=== PATIENT | female | born 1940 | race Caucasian/White ===

== ENCOUNTER 2021-02-14 07:04 | Outpatient (REF) | payer MEDICARE, SELFPAY ==
[2021-02-14 07:25] LABS: Hematocrit 25.4 % (37-47); Hemoglobin 8.1 g/dl (12.0-16.0); Mean Corpuscular HGB Conc 31.9 g/dl (31.0-35.0); Mean Corpuscular Hemoglobin 29.5 pg (27.0-33.0); Mean Corpuscular Volume 92.4 fL (80-98); Mean Platelet Volume 9.5 fL (9.4-12.3); NRBC Pct Auto 0.7 /100WBC (0.0-0.2); Platelet Count 393 X10*3/uL (160-400); Red Blood Count 2.75 X10*6/uL (4.20-5.50); Red Cell Distribution Width 20.8 % (11.0-16.0); White Blood Count 17.4 X10*3/uL (4.8-10.8)
[2021-02-14 07:46] LABS: Alanine Aminotransferase 16 U/L (0-31); Albumin Level 2.7 g/dL (3.5-5.0); Alkaline Phosphatase 107 U/L (39-117); Anion Gap 13 (12-20); Aspartate Amino Transferase 16 U/L (5-31); Bilirubin Total 0.5 mg/dL (0.0-1.0); Blood Urea Nitrogen 11 mg/dL (9-16); Calcium 8.2 mg/dL (8.4-10.2); Carbon Dioxide 22 mmol/L (22-29); Chloride 110 mmol/L (96-108); Estimated Glomerular Filt Rate > 60; Glucose Random 87 mg/dL (60-115); Potassium 4.1 mmol/L (3.3-5.1); Sodium 141 mmol/L (135-145); Total Protein 5.1 g/dL (6.5-8.0)
== END 2021-02-14 07:05 | disposition home or self-care (01) ==
LOC: HO.MMNH2L 07:04
PROVIDERS: Visit Provider Family Medicine
DX: N17.9 Acute kidney failure, unspecified (principal); I10 Essential (primary) hypertension; E11.9 Type 2 diabetes mellitus without complications
CPT/HCPCS: 36415; 80053; 85027

== ENCOUNTER 2021-02-20 00:16 | Outpatient (REF) | payer MEDICARE, SELFPAY ==
[2021-02-20 06:33] LABS: MANUAL DIFF FLAG NO
[2021-02-20 07:16] LABS: Basophils Absolute Auto 0.1 X10*3/uL (0.0-0.2); Basophils Percent Auto 1.1 % (0-2); Eosinophils Absolute Auto 0.1 X10*3/uL (0.0-0.4); Hematocrit 26.6 % (37-47); Hemoglobin 8.1 g/dl (12.0-16.0); Imm Gran Abs Auto 0.15 X10*3/uL (0.00-0.03); Imm Gran Pct Auto 1.2 % (0.0-0.4); Lymphocytes Absolute Auto 2.8 X10*3/uL (1.2-4.9); Lymphocytes Percent Auto 22.4 % (20-40); Mean Corpuscular HGB Conc 30.5 g/dl (31.0-35.0); Mean Corpuscular Hemoglobin 29.8 pg (27.0-33.0); Mean Corpuscular Volume 97.8 fL (80-98); Mean Platelet Volume 8.7 fL (9.4-12.3); Neutrophils Absolute Auto 8.2 X10*3/uL (2.0-8.3); Neutrophils Percent Auto 66.3 % (45-73); Platelet Count 813 X10*3/uL (160-400); Red Blood Count 2.72 X10*6/uL (4.20-5.50); Red Cell Distribution Width 21.4 % (11.0-16.0); White Blood Count 12.4 X10*3/uL (4.8-10.8)
[2021-02-20 07:36] LABS: Magnesium 2.1 mg/dL (1.6-2.6); Phosphorus 4.5 mg/dL (2.7-4.5)
[2021-02-20 07:38] LABS: Anion Gap 13 (12-20); Blood Urea Nitrogen 16 mg/dL (9-16); Calcium 8.7 mg/dL (8.4-10.2); Carbon Dioxide 26 mmol/L (22-29); Chloride 111 mmol/L (96-108); Estimated Glomerular Filt Rate > 60; Glucose Random 82 mg/dL (60-115); Potassium 5.1 mmol/L (3.3-5.1); Sodium 145 mmol/L (135-145)
== END 2021-02-20 00:17 | disposition home or self-care (01) ==
LOC: HO.MMNH2L 00:16
PROVIDERS: Visit Provider Family Medicine
DX: I10 Essential (primary) hypertension (principal); N17.9 Acute kidney failure, unspecified; E11.9 Type 2 diabetes mellitus without complications
CPT/HCPCS: 36415; 80048; 83735; 84100; 85025

== ENCOUNTER 2021-02-27 00:28 | Outpatient (REF) | payer MEDICARE, BC, SELFPAY | END 2021-02-27 00:29 | disposition home or self-care (01) | LOC: HO.MMNH2L 00:28 | PROVIDERS: Visit Provider Family Medicine | DX: Z13.89 Encounter for screening for other disorder (principal) ==

== ENCOUNTER 2024-06-25 09:48 | Outpatient (AMB) | payer MEDICARE, SELFPAY ==
--- OUTSIDE RECORDS SUMMARY | 2024-06-25 09:52 | XMS_ITS | Data Portability ---
Author Organization [facility] Main Office Address [address] [place] [address] [address] [place] [address] Assessment Encounter Date Assessment Date Assessment LastModified by Organization Details LastModified Time 10/16/2018 10/16/2018 CXR ordered. Rocephin 1 gr IM in office today. Begin medication as directed. Medication directions, adverse effects reviewed with patient, follow up after treatment, PRN through walk in if concerns arise. [email or web address] Not available 10/16/2018 17:39:11 Plan of Treatment Reminders Order Date Submit Date Provider Last Modified By Organization Details Last Modified Time Details Appointments None recorded. Lab None recorded. Referral None recorded. Procedures None recorded. Surgeries None recorded. Imaging None recorded. Medication Orders doxycyclin e hyclate 100 mg capsule 2018 019 INTERFACE [id number], [address] [place], [address], 9 12:50:28 benzonatat e 200 mg capsule 2018 019 INTERFACE [facility], [address] [place], [address], 9 12:50:28 ceftriaxon e 1 gram solution for injection 2018 019 Not available 9 15:54:44 Patient TargetsNo targets recorded. Patient InstructionsNo instructions recorded. Reason for Referral None Reported. Results Created Date Observation Date Name Description Value Unit Range Abnormal Flag Note LastModifiedBy Organization Detail LastModifiedTime 10/18/19 19 10/17/2018 XR, chest No observ ation record ed. [email or web address] [facility] ([facility] [address], [place], [address], 10/20/2018 10:55:51 Result Notes None recorded. Procedures Surgical History Date Name Laterality Status Provider Name and Address Organization Details Recorded Time Tonsillectomy completed [facility] 10/16/2018 12:18:46 Breast Surgery completed [facility] 10/16/2018 12:19:30 Shoulder joint surgery completed [facility] 10/16/2018 12:20:24 Knee [facility] 10/16/2018 12:20:33 Imaging Results Imaging Date Name Status LastModified by Organiz ation Details LastModified Time 10/17/2018 XR, chest completed [email or web address] [facility] ([facility]) [address], [place], [address], 10/20/2018 10:55:51 Procedure Notes None recorded. Medical Equipment None Reported. Allergies Allergen ID Allergen Name Allergen Category Reaction Reaction Severity Criticality Documentation Date Start Date Code Code System Note Provider Name and Address Organization Details Recorded Time 8783 codeine medicatio n Not available Not available Not available 10/16/2018 2670 [facility] 9 12:10:12 8784 morphine medicatio n Not available Not available Not available 10/16/2018 7052 [facility] 9 12:10:18 Medications Name Sig Start Date Stop Date Status Note LastModified by Organization Details LastModified Time atorvastatin 40 mg tablet Take 1 tablet every day by oral route. active Not Available Not Available No t Available doxycycline hyclate 100 mg capsule Take 1 capsule twice a day by oral route for 10 days. 2018 active Not Available Not Available Not Avai lable indapamide 2.5 mg tablet Take 1 tablet every day by oral route. active Not Available Not Available No t Available benzonatate 200 mg capsule Take 1 capsule 3 times a day by oral route as needed. 2018 active Not Available Not Available Not Avai lable levothyroxine 25 mcg tablet Take 1 tablet every day by oral route. active Not Available Not Available No t Available ceftriaxone 1 gram solution for injection Take 1 g by injection route. 2018 active Not Available Not Available Not Avai lable prednisone 1 mg tablet Take 1 tablet every day by oral route. active Not Available Not Available No t Available valsartan 320 mg tablet Take 1 tablet every day by oral route. active Not Available Not Available No t Available omeprazole 20 mg capsule,delay ed release Take 1 capsule every day by oral route. active Not Available Not Available No t Available folic acid 1 mg tablet Take 1 tablet every day by oral route. active Not Available Not Available No t Available zolpidem 10 mg tablet Take 1 tablet every day by oral route. active Not Available Not Available No t Available oxybutynin chloride 5 mg tablet Take 1 tablet every day by oral route. active Not Available Not Available No t Available methotrexate 2.5 mg tablet Take 8 tablets every week by oral route. active Not Available Not Available No t Available Vitals Date Recorded Body temperature Respiratory rate Body weight Body height Body mass index (BMI) Heart rate Systolic blood pressure Diastolic blood pressure Provider Name and Address Organization Details Last Updated DateTime 9 101 [degF] 20 /min 71335.2 6 g 165.1 cm 29.3 kg/m2 79 /min 157 mm[Hg] 70 mm[Hg] Ivana Swanson [facility] 9 12:09:53 Social History Question Answer Notes LastModified by Organizat ion Details LastModified Time Tobacco Smoking Status Former Smoker Ivana Swanson null, [facility] 10/16/2018 12:16:21 What Is Your Level Of Alcohol Consumption? None Information not available 10/16/2018 Hard Of Hearing Or Deaf In One Or Both Ears? No Information not available 10/16/2018 Live Alone Or With Others? With Others Information not available 10/16/2018 What Was The Date Of Your Most Recent Tobacco Screening? 10/16/2018 Information n ot available 02/04/2019 Seat Belts Used Routinely Yes Information not available 10/16/2018 Smoke Alarm In Home Yes Information not available 10/16/2018 How Much Tobacco Do You Smoke? No Information not available 10/16/2018 Do You Use Sunscreen Routinely? Yes Information not available 10/16/2018 Sex: Unknown Functional Status Question Answer Note LastModified by Organization D etails LastModified Time Are you able to walk? YESWOREST Information not available 10/16/2018 Are you able to care for yourself? Yes Information not available 10/16/2018 What is your exercise level? None Information not available 10/16/2018 Mental Status None recorded. Family History Nothing Reported. Medical History Condition Response Cancer Y Hypertension Y High Cholesterol Y Gynecological HistoryNo gynecological history recorded. Obstetrics History GPAL:G 0 P 0 0 0 0 Immunizations Vaccine Type Date Status Note Provider Nam e and Address Organization Details Recorded Time Influenza, split virus, quadrivalent, preservative 8 completed Ivana mcgovern [facility] 10/16/2018 12:15:30 Pneumococcal conjugate PCV 13 4 completed Ivana mcgovern [facility] 10/16/2018 12:15:49 Past Encounters Encounter ID Performer Location Encounter Start Date Encounter Closed Date Diagnosis/Indication Diagnosis SNOMED-CT Code Diagnosis ICD10 Code [id number] Leidy Odell Main Office [address] [place] [address] [address] [place] [address] 10/16/2018 11:21:30 10/17/2018 08:14:45 Community acquired pneumonia 371886948 J18.9 Health Concerns Section Related Observation LastModified by Organization Detai ls LastModified Time None Recorded Concern Status LastModified by Organization Details LastModified Time None Recorded Advance Directives Directive None Recorded Payers Encounter Date Sequence Insurance Name Policy Number Policy Swanson Covered Member ID Swanson Member ID Guarantor Name 10/16/2018 SLIDING FEE SCHEDULE - DISCOUNT Gely Busby Notes Date Note Type Note Provider Name and Address Organization Details Recorded Time 10/16/2018 text/html Pt was treated for pneumonia before she left [place] Leidy mcgovern [facility] 10/16/2018 17:39:43 OBGyn Episode No OBEpisode recorded.
--- NOTE | 2024-06-25 10:00 | A.OFFVIS_ITS ---
Vital Signs 06/25/24 10:05 Height 5 ft 5 in Weight 156 lb 8.451 oz BMI 26.0 BP 120/72 Blood Pressure Location Lt brachial Position Sitting Pulse 81 Pulse Source Pulse Oximeter Pulse Oximetry (%) 98 Oxygen Delivery Method Room Air Intake Visit Reasons: RA Intake Note: Patient presents for follow up on rheumatoid arthritis. Allergies codeine Allergy (Mild, Verified 06/25/24 10:10) Vomiting Opioids - Morphine Analogues Allergy (Mild, Verified 06/25/24 10:10) Vomiting pineapple Allergy (Mild, Verified 06/25/24 10:10) Vomiting methotrexate Adverse Reaction (Severe, Verified 06/25/24 10:42) mouth ulcers HPI HPI RA: Details: She feels well. No recent infections. Review of Systems Const All systems reviewed & are unremarkable except as noted in HPI and below Physical Exam Vital Signs: Last Vital Signs Pulse 81 06/25/24 10:05 BP 120/72 06/25/24 10:05 Pulse Ox 98 06/25/24 10:05 Oxygen Delivery Method Room Air 06/25/24 10:05 BMI result Body Mass Index 26.0 Const Other: General: Comfortable CVS: RRR Respiratory: clear to auscultation bilaterally. Good respiratory effort Skin: No lesions seen MSK: Nontender joints. Heberden's nodes present. No synovitis. Shoulder abduction 120 degrees with good internal and external rotation. Limited full flexion of knees. No MTP tenderness. Assessment & Plan Assessment & Plan (1) Rheumatoid arthritis: Comment: Controlled on hydroxychloroquine and prednisone 2 mg alternating with 1 mg the next day. Code(s): M06.9 - Rheumatoid arthritis, unspecified Category: Medical Qualifiers: Rheumatoid arthritis location: unspecified site Rheumatoid factor presence: unspecified presence Qualified Code(s): M06.9 - Rheumatoid arthritis, unspecified Plan: Decrease prednisone to 1 mg daily Continue hydroxychloroquine 300 mg daily. Requesting last eye exam for hydroxychloroquine surveillance, which patient had in 01/02/2024 Labs for disease and drug monitoring and high-risk medication ordered [facility] Return to clinic in 3 months Orders: Orders Erythrocyte Sedimentation Rate Today M06.9 - Rheumatoid arthritis, unspecified Alanine Aminotransferase Today Z79.60 - group home (current) use of unspecified immunomodulators and immunosuppressants Aspartate Amino Transferase Today Z79.60 - group home (current) use of unspecified immunomodulators and immunosuppressants Complete Blood Count Auto Diff Today Z79.60 - group home (current) use of unspecified immunomodulators and immunosuppressants Creatinine Today Z79.60 - group home (current) use of unspecified immunomodulators and immunosuppressants Hepatitis B,C Profile Today M06.9 - Rheumatoid arthritis, unspecified Rheumatoid Factor Today M06.9 - Rheumatoid arthritis, unspecified C Reactive Protein Today M06.9 - Rheumatoid arthritis, unspecified T Spot TB Today M06.9 - Rheumatoid arthritis, unspecified Cyclic Citrullinated Peptide Today M06.9 - Rheumatoid arthritis, unspecified Medications: New prednisone 1 mg PO DAILY 90 tabs 1RF Coding Level of Care Code Est Pt Level 4 (38256) Complex EM visit Add On G2211 Diagnoses Rheumatoid arthritis, involving unspecified site, unspecified whether rheumatoid factor present M06.9 Rheumatoid arthritis location: unspecified site Rheumatoid factor presence: unspecified presence
[2024-06-25 10:05] VITALS: BP 120/72; PULSE 81; O2SAT 98; BMI 26.0
== END 2024-06-25 10:55 | disposition home or self-care (01) ==
PROVIDERS: PCP Internal Medicine; Visit Provider Internal Medicine Rheumatology
DX: M06.9 Rheumatoid arthritis, unspecified (principal)
CPT/HCPCS: 99214; G2211

== ENCOUNTER → 2024-06-25 09:48 | Outpatient (BNVA) | payer MEDICARE, SELFPAY | PROVIDERS: PCP Internal Medicine; Visit Provider Internal Medicine Rheumatology | DX: M06.9 Rheumatoid arthritis, unspecified (principal); Z79.60 Long term (current) use of unspecified immunomodulators and immunosuppressants | CPT/HCPCS: 99212 ==

== ENCOUNTER 2024-11-12 12:34 | Outpatient (AMB) | payer MEDICARE, SELFPAY ==
--- NOTE | 2024-11-12 12:37 | A.OFFVIS_ITS ---
Vital Signs 11/12/24 12:45 Height 5 ft 5 in Weight 147 lb 0.773 oz BMI 24.5 BP 164/90 H Blood Pressure Location Rt brachial Position Sitting Pulse 75 Pulse Source Pulse Oximeter Pulse Oximetry (%) 98 Oxygen Delivery Method Room Air Intake Visit Reasons: 3 mnts f/u Intake Note: Patient presents for 3 months follow up. Allergies codeine Allergy (Mild, Verified 11/12/24 12:43) Vomiting Opioids - Morphine Analogues Allergy (Mild, Verified 11/12/24 12:43) Vomiting pineapple Allergy (Mild, Verified 11/12/24 12:43) Vomiting methotrexate Adverse Reaction (Severe, Verified 11/12/24 12:43) mouth ulcers HPI HPI 3 mnts f/u: Details: She has more joint pain in hands since being on prednisone 1mg daily. No joint swelling. She has ocular testing with visual field every 6 months. I have not received any record. She feels she is walking slower. She does not feel confident going outside by herself sometimes. She uses a cane to ambulate. No MS[facility] Social History (Updated 11/12/24 @ 12:45 by JUNE Lama) Household Members: Spouse Housing: House Alcohol intake: former Patient Tobacco Use Status: Former Tobacco user Years Smoked: 10 Physical Exam Vital Signs: Last Vital Signs Pulse 75 11/12/24 12:45 BP 164/90 H 11/12/24 12:45 Pulse Ox 98 11/12/24 12:45 Oxygen Delivery Method Room Air 11/12/24 12:45 BMI result Body Mass Index 24.5 Const Other: General: Comfortable CVS: RRR Respiratory: clear to auscultation bilaterally. Good respiratory effort Skin: No lesions seen MSK: Nontender joints. Heberden's nodes present. No synovitis. Bilateral Shoulder abduction 160 degrees with good internal and external rotation. Limited full flexion of knees. No MTP tenderness. Assessment & Plan Assessment & Plan (1) Rheumatoid arthritis: Comment: Controlled on hydroxychloroquine and prednisone 1 mg daily Rheumatology history: Seropositive (RF). Onset 2011. Methotrexate 2012 to January 2021 discontinued due to oral ulcers and pancytopenia with biopsy confirmi ng mucositis. Chronic prednisone use. Leflunomide May 03, 2022 to June 03, 2022 kidney dysfunction. Sulfasalazine caused drowsiness. Hydroxychloroquine August 2022 to present. Code(s): M06.9 - Rheumatoid arthritis, unspecified Category: Medical Qualifiers: Rheumatoid arthritis location: unspecified site Rheumatoid factor presence: unspecified presence Qualified Code(s): M06.9 - Rheumatoid arthritis, unspecified Plan: Continue hydroxychloroquine 300 mg daily. OCT January 2023 and visual field May 2023 okay. I am requesting last clinic note with OCT and visual field testing. Patient has been having visual field testing every 6 months and have been stable per patient. She will discuss having yearly testing. She will alternate prednisone 1 mg with non the next day until next visit. Patient has enough prednisone at home and will call office when she needs refill Baseline labs for disease and drug monitoring ordered. Patient did not have them last visit. Return to clinic in 3 months (2) Generalized weakness: Comment: Contributing to slower gait Code(s): R53.1 - Weakness Category: Medical Plan: PT ordered for lower extremity extremity strengthening Return to clinic in 3 months (3) Osteopenia after menopause: Comment: Moderate fracture risk on bone density from October 15, 2023. Risk factor: chronic low-dose prednisone and age. Code(s): M85.80 - Other specified disorders of bone density and structure, unspecified site; Z78.0 - Asymptomatic menopausal state Category: Medical Plan: Continue calcium carbonate 600 mg daily. 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) use of unspecified immunomodulators and immunosuppressants C Reactive Protein Today Z79.899 - Other custodial (current) drug therapy Vitamin D 25-OH Total Today M85.80 - Other specified disorders of bone density and structure, unspecified site, Z78.0 - Asymptomatic menopausal state Albumin Level Today M85.80 - Other specified disorders of bone density and structure, unspecified site, Z78.0 - Asymptomatic menopausal state Calcium Today M85.80 - Other specified disorders of bone density and structure, unspecified site, Z78.0 - Asymptomatic menopausal state Complete Blood Count Auto Diff Today Z79.60 - middle or intermediate school principal (current) use of uns pecified immunomodulators and immunosuppressants Aspartate Amino Transferase Today Z79.60 - snf (current) use of unspecified immunomodulators and immunosuppressants Erythrocyte Sedimentation Rate Today Z79.899 - Other middle or intermediate school principal (current) drug therapy PT Evaluation and Treatment Today M06.9 - Rheumatoid arthritis, unspecified, R53.1 - Weakness Medications: New hydroxychloroquine 400 mg (2 x 200 mg) PO DAILY 90 days 180 tabs 1RF Coding Level of Care Code Est Pt Level 4 (72897) Complex EM visit Add On G2211 Diagnoses Rheumatoid arthritis, involving unspecified site, unspecified whether rheumatoid factor present M06.9 Rheumatoid arthritis location: unspecified site Rheumatoid factor presence: unspecified presence Generalized weakness R53.1 Osteopenia after menopause M85.80; Z78.0
[2024-11-12 12:45] VITALS: BP 164/90; PULSE 75; O2SAT 98; BMI 24.5
--- OUTSIDE RECORDS SUMMARY | 2024-11-12 14:55 | XMS_ITS | Data Portability ---
Author Organization [facility], Main Office Address [address] [place] [address] [address] [place] [address] Assessment Encounter Date Assessment Date Assessment LastModified [...] 019 INTERFACE [facility], [address] [place], [address], 9 12:50:28 benzonatat e 200 mg capsule 2018 019 INTERFACE [facility], [address] [place], [address], 9 12:50:28 ceftriaxon e 1 gram solution for injection 2018 019 Not available 9 15:54:44 Patient TargetsNo targets recorded. Patient InstructionsNo instructions recorded. Reason for Referral None Reported. Results Created Date Observation Date Name Description Value Unit Range Abnormal Flag Note LastModifiedBy Organization Detail LastModifiedTime 10/18/19 19 10/17/2018 XR, chest No observ ation record ed. [email or web address] [facility] ([facility]) [address], [place], [address], 10/20/2018 10:55:51 Result Notes None recorded. Procedures Surgical History Date Name Laterality Status Provider Name and Address Organization Details Recorded Time Tonsillectomy completed [facility] 10/16/2018 12:18:46 Breast Surgery completed [facility] 10/16/2018 12:19:30 Shoulder joint surgery completed [facility] 10/16/2018 12:20:24 [facility] 12:20:33 Imaging Results Imaging Date Name Status LastModified by Organiz ation Details LastModified Time 10/17/2018 XR, chest completed [email or web address] [facility] ([facility]) [address], [place], [address], 10/20/2018 10:55:51 Procedure Notes None recorded. Medical Equipment None Reported. Allergies Allergen ID Allergen Name Allergen Category Reaction Reaction Severity Criticality Documentation Date Start Date Code Code System Note Provider Name and Address Organization Details Recorded Time 8783 codeine medicatio n Not available Not available Not available 10/16/2018 2670 [facility] 9 12:10:12 8784 morphine medicatio n Not available Not available Not available 10/16/2018 7052 [facility]Norm [facility] 9 12:10:18 Medications Name Sig Start Date [...] Updated DateTime 9 101 [degF] 20 /min 14346.2 6 g 165.1 cm 29.3 kg/m2 79 /min 157 mm[Hg] 70 mm[Hg] Ivana Swanson [facility] 9 12:09:53 Social History Question Answer Notes LastModified by Organizat ion Details LastModified Time Tobacco Smoking Status Former Smoker Ivana Swanson null, [facility] 10/16/2018 12:16:21 What Is Your Level Of [...] virus, quadrivalent, preservative 8 completed Ivana mcgovern [facility] 10/16/2018 12:15:30 Pneumococcal conjugate PCV 13 4 completed Ivana mcgovern [facility] 10/16/2018 12:15:49 Past Encounters Encounter ID Performer Location Encounter Start Date Encounter Closed Date Diagnosis/Indication Diagnosis SNOMED-CT Code Diagnosis ICD10 Code Diagnosis Note [id number] Lexa Miranda DO Main Office [address] [place] [address] [address] [place] [address] 10/16/2018 11:21:30 10/17/2018 08:14:45 Community acquired pneumonia [id number] J18.9 Health Concerns Section Related Observation LastModified [...] pneumonia [place] she left [place] Leidy mcgovern [facility] 10/16/2018 17:39:43 OBGyn Episode No OBEpisode recorded.
--- OUTSIDE RECORDS SUMMARY | 2024-11-12 14:55 | XMS_ITS | Data Portability ---
Author Organization [place] - [facility] Address [address] [place] [id number] Care Team Providers Care Fermenter Champagne Name Role Phone PASQUALE GREENE Primary Care Provider Assessment Encounter Date Assessment Date Assessment LastModified by Organization Details LastModified Time 01/24/2021 01/24/2021 Overview/History : 80yo female who is new to with a PMHx of Rheumatoid arthritis, high cholesterol, diabetes, breast cancer, and hypothyroidism being seen for blisters on her lips. She reports since July 2020 following back surgery her health has significantly declined. She reports having urinary frequency & incontinence for which she is followed by urology. She has had (-) UTI's no burning or dysuria. She reports a 35 pound weight loss. She reports poor appetite, and she developed blisters 2-1/2 weeks ago on her lips. She was seen by urgent care who prescribed Magic mouthwash. This did not improve blisters, she was seen again yesterday at [place] urgent care who prescribed Triamcinolone acetonide 0.1% topical dental paste. She reports blisters became worse over the last 24 hours. She describes them as burning. She has tried taking Tylenol with no improvement in pain. She denies any fevers, sun exposure, no nausea, vomiting, diarrhea or blood in stools. No chest pain shortness of breath or rash anywhere else. Exam: Patient is alert, nontoxic appearing in no apparent distress. Moist mucous membranes, no erythema or exudate noted and oropharynx. Appears to have ulceration upper lips, with scaly discoloration of mucus membranes lower lip. Normal heart sounds, regular rhythm. No peripheral edema. Lungs are clear. DDx considered, but not limited to: Actinic cheilitis likely- Nutritional deficiency possible Stomatitis Allergic reaction to a food or medication possible Work up/Results: Referral to Dermatology Plan/Discussion: Discuss with patient it is unclear what is causing the blistering and discoloration of her lips. Does appear to have some crusty lesions noted in her right upper lip. Advised to do warm water with salt rinses. Lidocaine viscous prescribed to be applied topically. Patient strongly advised to see dermatology to help determine the source of blisters and eval for actinic cheilitis. Advised to continue avoiding the sun. May take Tylenol per package instructions as needed for discomfort. Advised to use soft bristled toothbrushes. Advised to continue her soft diet as tolerated. The patient is advised to make an appt with PCP jeremias to discuss ongoing symptoms/ further management and have workup for significant weight loss. The patient is also advised to go to the ED immediately for any worsening symptoms. The patient understood and agreed with this plan. The patient was given discharge instructions and all questions were answered prior to DH team departure. In order to obtain further information and compare any laboratory results/values, I have accessed patient records on the [employer]. This information was pertinent in my medical decision making today. Proper Personal Protective Equipment (PPE), including gloves, eye protection and masks were donned and doffed appropriately and all equipment cleaned using approved technique with germicidal disposable wipes prior to and after care of this patient according to [facility]'s infection prevention protocols. [email or web address] Not available 01/24/2021 16:35:56 01/27/2021 01/27/2021 Time On Scene with Patient: 00:57:50 DDX: stomatitis, malnutrition, actinic keratosis, Pt has continued rash withpain to the area. There was no response to treatments recommended by urgent care or prior provider. Onset of increased salivation and oral rash simultaneously Will evaluate labs including albumin, LFTs, CBC with diff. PT is going to call her dentist as well as dermatology. Advised patient to: 1. Stop topical treatment. 2. Use warm salt water gargles 3. apply vaseline to her lips to protect them 4. increase PO fluids and food. 5. Call for re-evaluation or go to the ED with any worsening symptoms, shortness of breath or concerns. Not available 01/27/2021 15:05:35 Plan of Treatment Reminders Order Date Submit Date Provider Last Modified By Organization Details Last Modified Time Details Appointments None recorded. Lab CBC w/ auto diff 2020 JULIÁN [facility] (Centralized Electronic Ordering - All Locations), Patient Can Go To The Location Of Their Choice, 20:52:16 bun (blood urea nitrogen), serum or plasma 2020 JULIÁN [facility] (Centralized Electronic Ordering - All Locations), Patient Can Go To The Location Of Their Choice, 22:13:29 creatinine , serum or plasma 2020 JULIÁN [facility] (Centralized Electronic Ordering - All Locations), Patient Can Go To The Location Of Their Choice, 22:13:34 electrolyt e panel, serum 2020 JULIÁN [facility] (Centralized Electronic Ordering - All Locations), Patient Can Go To The Location Of Their Choice, 22:13:43 hepatic function panel, serum 2020 JULIÁN [facility] (Centralized Electronic Ordering - All Locations), Patient Can Go To The Location Of Their Choice, 22:13:39 albumin, serum or plasma 2020 [email or web address] [facility] (Centralized Electronic Ordering - All Locations), Patient Can Go To The Location Of Their Choice, 08:53:46 Referral dermatolog ist referral 2020 [facility], [address] [place] [address], [address], [place], [address], 16:04:03 Procedures None recorded. Surgeries None recorded. Imaging None recorded. Medication Orders Lidocaine Viscous 2 % mucosal solution 2020 [email or web address] [id number], [address] [facility], [place], [address], 15:57:28 Patient TargetsNo targets recorded. Patient Instructions Encounter Date Encounter Id Patient Instructions Last Modified By Organization Details Last Modified Time 01/24/2021 [id number] canker sore: humera li instructions [email or web address] Not available 01/24/2021 15:47:38 T-98.2 HR-84 B/P - 128/64 RR-18 O2 sat 96% RA -It is unclear what is causing the blister reaction on your lips. -Try topical Lidocaine medication- apply to layer of lips- should help with discomfort. (do not swish or swallow) -Continue soft foods. -Recommend seeing a stenographer print shop to determine cause of ulcerations on lips. -Strongly recommend following up with PCP regarding weight loss. Thank you for your visit with [facility] today. We cannot always find the exact cause of your symptoms during your initial visit. Please follow up with your primary care provider or specialist as needed to be rechecked or seek medical attention if your symptoms do not go away or get worse. If you develop any new or worsening symptoms and need after hours care, please go to nearest ER and/or call 911. If you have additional concerns or develop a change in your condition between 8am-10pm, please call [facility] at [phone] to help navigate your care. [email or web address] Not available 01/24/2021 15:45:41 01/27/2021 [id number] [facility] came to see you for mouth sores. You have had these for the past 3 weeks. You have been having weight loss over the past few months. We zhen blood work today. We also think you should use salt water gargles during the day. Salt water gargle : Mix 1/2 teaspoon salt into warm water. Use vaseline on the lips afterwards and during the day. Swallow your saliva. Please drink plenty of fluids, water, juices, teas. Call your dentist to have her see you in the office as soon as you can. Dr. Leach can look at your teeth as well as they have been bothering you. 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 of mouth Concerns for actinic cheilitis- 2.5 weeks of blisters, sloughing inner lips- 35lb weight loss Referring Physician: Supriya Condon, Emergency Medicine, Encounter Date: 01/24/2021 Results Created Date Observation Date Name Description Value Unit Range Abnormal Flag Note LastModifiedBy Organization Detail LastModifiedTime 01/28/2001/27/2021 COMPL ETE CBC WITH DIFF WBC 3.3 K/mm3 (4.0-1 1.0) low Not Available [facility] (Centralized Electronic Ordering - All Locations) Patient Can Go To The Location Of Their Choice, 01/27/2021 20:52:01/28/2001/27/2021 COMPL ETE CBC WITH DIFF RBC 3.46 M/mm3 (4.20- 5.40) low Not Available [facility] (Centralized Electronic Ordering - All Locations) Patient Can Go To The Location Of Their Choice, 01/27/2021 20:52:01/28/2001/27/2021 COMPL ETE CBC WITH DIFF HGB 10.2 gm/dL (11.7- 15.5) low Not Available [facility] (Centralized Electronic Ordering - All Locations) Patient Can Go To The Location Of Their Choice, 01/27/2021 20:52:01/28/2001/27/2021 COMPL ETE CBC WITH DIFF HCT 32.6 % (35.7- 45.8) low Not Available [facility] (Centralized Electronic Ordering - All Locations) Patient Can Go To The Location Of Their Choice, 01/27/2021 20:52:01/28/2001/27/2021 COMPL ETE CBC WITH DIFF MCV 94.2 fL (80.0- 100.0) Not Available [facility] (Centralized Electronic Ordering - All Locations) Patient Can Go To The Location Of Their Choice, 01/27/2021 20:52:01/28/2001/27/2021 COMPL ETE CBC WITH DIFF MCH 29.5 pg (27.0- 34.0) Not Available [facility] (Centralized Electronic Ordering - All Locations) Patient Can Go To The Location Of Their Choice, 01/27/2021 20:52:01/28/2001/27/2021 COMPL ETE CBC WITH DIFF MCHC 31.3 g/dL (33.0- 37.0) low Not Available [facility] (Centralized Electronic Ordering - All Locations) Patient Can Go To The Location Of Their Choice, 01/27/2021 20:52:01/28/2001/27/2021 COMPL ETE CBC WITH DIFF plt 179 K/mm3 (150-4 60) Not Available [facility] (Centralized Electronic Ordering - All Locations) Patient Can Go To The Location Of Their Choice, 01/27/2021 20:52:01/28/2001/27/2021 COMPL ETE CBC WITH DIFF RDW-SD 62.0 fL (<47.0 ) high Not Available [facility] (Centralized Electronic Ordering - All Locations) Patient Can Go To The Location Of Their Choice, 01/27/2021 20:52:01/28/20 21 01/27/2021 COMPL ETE CBC WITH DIFF MPV 10.0 fL (9.4-1 2.4) Not Available [facility] (Centralized Electronic Ordering - All Locations) Patient Can Go To The Location Of Their Choice, 01/27/2021 20:52:01/28/2001/27/2021 COMPL ETE CBC WITH DIFF automated NRBC 0.0 #/100 _WBC' s Not Available [facility] (Centralized Electronic Ordering - All Locations) Patient Can Go To The Location Of Their Choice, 01/27/2021 20:52:01/28/2001/27/2021 COMPL ETE CBC WITH DIFF abs. NRBC 0.0 K/mm3 Not Available [facility] (Centralized Electronic Ordering - All Locations) Patient Can Go To The Location Of Their Choice, 01/27/2021 20:52:01/28/2001/27/2021 COMPL ETE CBC WITH DIFF neut # 2.1 K/mm3 (1.3-7 .0) Not Available [facility] (Centralized Electronic Ordering - All Locations) Patient Can Go To The Location Of Their Choice, 01/27/2021 20:52:01/28/2001/27/2021 COMPL ETE CBC WITH DIFF lymph # 0.5 K/mm3 (0.8-3 .1) low Not Available [facility] (Centralized Electronic Ordering - All Locations) Patient Can Go To The Location Of Their Choice, 01/27/2021 20:52:01/28/2001/27/2021 COMPL ETE CBC WITH DIFF mono# 0.1 K/mm3 (0.4-0 .9) low Not Available [facility] (Centralized Electronic Ordering - All Locations) Patient Can Go To The Location Of Their Choice, 01/27/2021 20:52:01/28/2001/27/2021 COMPL ETE CBC WITH DIFF eo # 0.6 K/mm3 (0.0-0 .4) high Not Available [facility] (Centralized Electronic Ordering - All Locations) Patient Can Go To The Location Of Their Choice, 01/27/2021 20:52:01/28/2001/27/2021 COMPL ETE CBC WITH DIFF baso # 0.0 K/mm3 (0.0-0 .1) Not Available [facility] (Centralized Electronic Ordering - All Locations) Patient Can Go To The Location Of Their Choice, 01/27/2021 20:52:01/28/2001/27/2021 COMPL ETE CBC WITH DIFF abs. imm gran 0.0 K/mm3 Not Available [facility] ([facility] Order[facility] - All Locations) Patient Can Go To The Location Of Their Choice, 01/27/2021 20:52:01/28/2001/27/2021 COMPL ETE CBC WITH DIFF neut 62.5 % (44-76 ) Not Available [facility] (Centralized Electronic Ordering - All Locations) Patient Can Go To The Location Of Their Choice, 01/27/2021 20:52:01/28/2001/27/2021 COMPL ETE CBC WITH DIFF lymph 16.2 % (15-43 ) Not Available [facility] (Centralized Electronic Ordering - All Locations) Patient Can Go To The Location Of Their Choice, 01/27/2021 20:52:01/28/2001/27/2021 COMPL ETE CBC WITH DIFF monocyte 1.5 % (4.5-1 0.5) low Not Available [facility] (Centralized Electronic Ordering - All Locations) Patient Can Go To The Location Of Their Choice, 01/27/2021 20:52:01/28/2001/27/2021 COMPL ETE CBC WITH DIFF eo 19.2 % (0-6) high Not Available [facility] (Centralized Electronic Ordering - All Locations) Patient Can Go To The Location Of Their Choice, 01/27/2021 20:52:16 01/28/20 21 01/27/2021 COMPL ETE CBC WITH DIFF baso 0.3 % (0-2) Not Available [facility] (Centralized Electronic Ordering - All Locations) Patient Can Go To The Location Of Their Choice, 01/27/2021 20:52:16 01/28/20 21 01/27/2021 COMPL ETE CBC WITH DIFF imm gran 0.3 % Not Available [facility] (Centralized Electronic Ordering - All Locations) Patient Can Go To The Location Of Their Choice, 01/27/2021 20:52:16 01/28/20 21 01/27/2021 COMPL ETE CBC WITH DIFF RBC morphology MODER ATE KYLER CELLS Not Available [facility] (Centralized Electronic Ordering - All Locations) Patient Can Go To The Location Of Their Choice, 01/27/2021 20:52:16 01/28/20 21 01/27/2021 BUN BUN 61 mg/dL (8-23) high Not Available [facility] (Centralized Electronic Ordering - All Locations) Patient Can Go To The Location Of Their Choice, 01/27/2021 22:13:29 01/28/2001/27/2021 CREAT ININE creatinine 1.9 mg/dL (0.5-1 .0) high Not Available [facility] (Centralized Electronic Ordering - All Locations) Patient Can Go To The Location Of Their Choice, 01/27/2021 22:13:34 01/28/2001/27/2021 CREAT ININE est GFR non 24 mL/mi n/1.7 3_M2 Creat inine based estim ated glome rular filtr ation rate (eGFR ) is calcu lated using the Chron ic Kidne y Disea se Epide miolo gy Colla borat ion (CKD- EPI). The CKD-E PI creat inine equat ion has not been valid ated in child drew (<18 years ), pregn ant women or in some racia l or ethni c subgr oups other than Cauca sians and Afric an Ameri cans. Not Available [facility] (Centralized Electronic Ordering - All Locations) Patient Can Go To The Location Of Their Choice, 01/27/2021 22:13:34 01/28/2001/27/2021 CREAT ININE est GFR 28 mL/mi n/1.7 3_M2 Creat inine based estim ated glome rular filtr ation rate (eGFR ) is calcu lated using the Chron ic Kidne y Disea se Epide miolo gy Colla borat ion (CKD- EPI). The CKD-E PI creat inine equat ion has not been valid ated in child drew (<18 years ), pregn ant women or in some racia l or ethni c subgr oups other than Cauca sians and Afric an Ameri cans. Not Available [facility] (Centralized Electronic Ordering - All Locations) Patient Can Go To The Location Of Their Choice, 01/27/2021 22:13:34 01/28/2001/27/2021 HEPAT IC FUNCT ION PANEL bilirubin,to tayler 0.6 mg/dL (0-1.2 ) Not Available [facility] (Centralized Electronic Ordering - All Locations) Patient Can Go To The Location Of Their Choice, 01/27/2021 22:13:39 01/28/2001/27/2021 HEPAT IC FUNCT ION PANEL bilirubin, direct 0.2 mg/dL (0-0.3 ) Not Available [facility] (Centralized Electronic Ordering - All Locations) Patient Can Go To The Location Of Their Choice, 01/27/2021 22:13:39 01/28/2001/27/2021 HEPAT IC FUNCT ION PANEL indirect bilirubin 0.4 mg/dL (0.0-0 .7) Not Available [facility] (Centralized Electronic Ordering - All Locations) Patient Can Go To The Location Of Their Choice, 01/27/2021 22:13:39 01/28/2001/27/2021 HEPAT IC FUNCT ION PANEL albumin 3.8 gm/dL (3.4-4 .8) Not Available [facility] (Centralized Electronic Ordering - All Locations) Patient Can Go To The Location Of Their Choice, 01/27/2021 22:13:39 01/28/2001/27/2021 HEPAT IC FUNCT ION PANEL AST 8 U/L (0-32) Not Available [facility] (Centralized Electronic Ordering - All Locations) Patient Can Go To The Location Of Their Choice, 01/27/2021 22:13:39 01/28/2001/27/2021 HEPAT IC FUNCT ION PANEL ALT 9 U/L (0-33) Not Available [facility] (Centralized Electronic Ordering - All Locations) Patient Can Go To The Location Of Their Choice, 01/27/2021 22:13:39 01/28/2001/27/2021 HEPAT IC FUNCT ION PANEL alk phos 97 U/L (35-10 4) Not Available [facility] (Centralized Electronic Ordering - All Locations) Patient Can Go To The Location Of Their Choice, 01/27/2021 22:13:39 01/28/2001/27/2021 HEPAT IC FUNCT ION PANEL total protein 6.3 gm/dL (6.2-8 .2) Not Available [facility] (Centralized Electronic Ordering - All Locations) Patient Can Go To The Location Of Their Choice, 01/27/2021 22:13:39 01/28/2001/27/2021 ELECT ROLYT ES sodium 143 mmol/ L (133-1 45) Not Available [facility] (Centralized Electronic Ordering - All Locations) Patient Can Go To The Location Of Their Choice, 01/27/2021 22:13:43 01/28/2001/27/2021 ELECT ROLYT ES potassium 4.1 mmol/ L (3.6-5 .2) Not Available [facility] (Centralized Electronic Ordering - All Locations) Patient Can Go To The Location Of Their Choice, 01/27/2021 22:13:43 01/28/2001/27/2021 ELECT ROLYT ES chloride 110 mmol/ L (98-10 7) high Not Available [facility] (Centralized Electronic Ordering - All Locations) Patient Can Go To The Location Of Their Choice, 01/27/2021 22:13:43 01/28/2001/27/2021 ELECT ROLYT ES bicarbonate 19 mmol/ L (22-29 ) low Not Available [facility] (Centralized Electronic Ordering - All Locations) Patient Can Go To The Location Of Their Choice, [id number] 01/27/2021 22:13:43 01/28/20 21 01/27/2021 ELECT ROLYT ES anion gap 14 (4-17) Not Available [facility] (Centralized Electronic Ordering - All Locations) Patient Can Go To The Location Of Their Choice, [id number] 01/27/2021 22:13:43 Result Notes None recorded. Procedures Surgical History Date Name Laterality Status Provider Name and Address Organization Details Recorded Time 01/25/20 Medication Review completed Supriya Condon NP [address], [place], [address], [place] [facility] 01/24/2021 16:37:23 partial mastectomy completed Supriya Condon NP [address], [place], [address], [place] [facility] 01/24/2021 15:12:55 Imaging Results None recorded. Procedure Notes None recorded. Medical Equipment None Reported. Allergies Allergen ID Allergen Name Allergen Category Reaction Reaction Severity Criticality Documentation Date Start Date Code Code System Note Provider Name and Address Organization Details Recorded Time [id number] codeine medicatio n Not available Not available Not available 01/24/2021 2670 RxNorm Supriya Condon NP [address], [facility] [place], [address], [place] [facility] 15:11:09 [id number] morphine medicatio n Not available Not available Not available 01/24/2021 7052 RxNorm Supriya Condon NP [address], [facility] [place], [address], [place] [facility] 15:11:13 Medications Name Sig Start Date Stop Date Status Note LastModified by Organization Details LastModified Time triamcinolo ne acetonide 0.5 % topical cream active Not Available Not Available Not Available Lidocaine Viscous 2 % mucosal solution Take 15 mL every 3 hours by oral route as needed for 7 days. active Not Available Not Available No t Available amlodipine 2.5 mg tablet TAKE 1 TABLET BY MOUTH EVERY DAY active Not Available Not Available No t Available ciprofloxac in 500 mg tablet TAKE 1 TABLET BY MOUTH TWICE A DAY FOR 5 DAYS 01/24 completed Not Available Not Available Not Available levothyroxi ne 25 mcg tablet TAKE 1 TABLET BY MOUTH EVERY DAY TAKE 2 TABLETS 2 TIMES PER WEEK active Not Available Not Available No t Available methenamine hippurate 1 gram tablet TAKE 1 TABLET BY MOUTH TWICE A DAY WITH MEALS active Not Available Not Available No t Available lorazepam 0.5 mg tablet TAKE 1 TABLET BY MOUTH HALF A HOUR PRIOR TO MRI active Not Available Not Available No t Available triamcinolo ne acetonide 0.1 % dental paste active Not Available Not Available Not Available methotrexat e sodium 2.5 mg tablet TAKE 8 TABLETS BY MOUTH ONCE A WEEK active Not Available Not Available No t Available prednisone 1 mg tablet TAKE 2 TABLETS BY MOUTH EVERY DAY active Not Available Not Available No t Available valsartan 320 mg tablet TAKE 1 TABLET BY MOUTH EVERY DAY. REPLACES LOSARTAN active Not Available Not Available No t Available oxybutynin chloride ER 5 mg tablet,exte nded release 24 hr TAKE 1 TABLET BY MOUTH EVERY DAY active Not Available Not Available No t Available sertraline 25 mg tablet TAKE 1/2 OF A TABLET BY MOUTH DAILY FOR THE FIRST WEEK, THEN INCREASE TO 1 TABLET. active Not Available Not Available No t Available omeprazole 20 mg capsule,del ayed release TAKE 1 CAPSULE BY MOUTH TWICE A DAY active Not Available Not Available No t Available prednisolon e 15 mg/5 mL oral solution active Not Available Not Available Not Available zolpidem 5 mg tablet TAKE 1 TABLET BY MOUTH AT BEDTIME NEEDED FOR INSOMNIA active Not Available Not Available No t Available nystatin 100,000 unit/gram topical powder APPLY TO AFFECTED AREA TWICE A DAY active Not Available Not Available No t Available levofloxaci n 500 mg tablet TAKE 1 TABLET BY MOUTH EVERY DAY active Not Available Not Available No t Available amoxicillin 875 mg-potassiu m clavulanate 125 mg tablet TAKE 1 TABLET BY MOUTH 2 TIMES DAILY FOR 7 DAYS. WITH FOOD 01/24 completed Not Available Not Available Not Available rosuvastati n 10 mg tablet TAKE 1 TABLET BY MOUTH EVERY DAY active Not Available Not Available No t Available solifenacin 10 mg tablet TAKE 1 TABLET BY MOUTH DAILY active Not Available Not Available No t Available Vitals Date Recorded Heart rate Oxygen saturation Oxygen saturation in Arterial blood by Pulse oximetry Respiratory rate Body temperature Systolic blood pressure Diastolic blood pressure Provider Name and Address Organization Details Last Updated DateTime 1 84 /min 96 % 96 % 18 /min 98.2 [degF] 128 mm[Hg] 64 mm[Hg] Not Available [facility] 15:27:07 Date Recorded Heart rate Respiratory rate Body temperature Oxygen saturation Oxygen saturation in Arterial blood by Pulse oximetry Systolic blood pressure Diastolic blood pressure Provider Name and Address Organization Details Last Updated DateTime 96 /min 18 /min 96.8 [degF] 94 % 94 % 102 mm[Hg] 54 mm[Hg] Not Available [facility] 08:43:36 Social History Question Answer Notes LastModified by Organizat ion Details LastModified Time Tobacco Smoking Status Former Smoker Supriya Condon, CARRILLO [address], [place], [address], [place] [facility] 01/24/2021 15:12:03 What Is Your Code Status? Full Code [email or web address] Information not available 01/24/2021 Within The Past 12 Months, Has It Happened That The Food You Bought Just Didn't Last And You Didn't Have Money To Get More. No Information not available 01/24/2021 Within The Past 12 Months, Have You Worried That Your Food Would Run Out Before You Got Money To Buy More. No Information not available 01/24/2021 Fall Risk: Do You Feel Unsteady When Standing Or Walking? No [email or web address] Information not available 01/24/2021 We Know That How And When People Interact With Friends And Family Can Be Very Different From Person To Person. How Often Do You Have The Opportunity To See Or Talk To People That You Care About And Feel Close To? (Ex: Talking To Friends On The Phone Or Visiting Friends Or Family Or Going To Muslim Or Club Meetings) 5 Or More Times Per Week [email or web address] Information not available 01/24/2021 We Know From Many Of Our Patients That Covering All Of Their Costs Can Be Difficult At Times. This Can Cause Stress And Impact Health. In The Past Year, Have You Been Unable To Get Any Of The Following When It Was Really Needed? No Information not available 01/24/2021 What Is Your Housing Situation Today? I Have Housing [email or web address] Information not available 01/24/2021 Would You Like Help Connecting To Resources? None [email or web address] Information not available 01/24/2021 Sex: Unknown Functional Status None recorded. Mental Status None recorded. Family History Relationship Description Onset Age of this Age Resolved Age Notes LastModified by Organization Details LastModified Time Father Coronary arterioscler osis [id number] Not available 2020 15:12:31 Medical History Condition Response Diabetes Y Coronary Artery Disease N High Cholesterol Y Pulmonary Embolism N Cancer Y Stroke N Hypertension N Depression N COPD N Asthma N Kidney Disease N Gynecological HistoryNo gynecological history recorded. Obstetrics History GPAL:G 0 P 0 0 0 0 Past Encounters Encounter ID Performer Location Encounter Start Date Encounter Closed Date Diagnosis/Indication Diagnosis SNOMED-CT Code Diagnosis ICD10 Code Diagnosis Note [id number] Supriya Condon NP [facility] [address] [place] [address] 01/24/2021 14:47:12 01/25/2021 13:19:37 Aphthous ulcer of mouth 385374113 K12.0 Ulcer of mouth 34148048 K12.1 Unintentio nal weight loss 970363096 R63.4 [id number] AMAURI TREVINO NP [facility] [address] [place] [address] 01/27/2021 08:36:25 01/27/2021 16:23:38 Stomatitis 82952370 K12.30 Health Concerns Section Related Observation LastModified by Organization Detai ls LastModified Time None Recorded Concern Status LastModified by Organization Details LastModified Time None Recorded Advance Directives Directive None Recorded Payers Encounter Date Sequence Insurance Name Policy Number Policy Swanson Covered Member ID Swanson Member ID Guarantor Name 01/24/2021 1 [place]ICARE [place]: [facility] [employer] Gely Busby [id number] Gely Busby 01/27/2021 1 [facility] (MEDICARE REPLACEMENT HMO) Gely Busby [id number] Gely Busby Notes Date Note Type Note Provider Name and Address Organization Details Recorded Time 01/24/2021 text/html 80yo female who is new to with a PMHx of breast CA, HLD, hypothyroid, rheumatoid arthritis, on 07/29/20 had back surgery with urinary frequency since and worsening back pain. 2.5 weeks ago she developed blisters on her lips- she saw Urgent care who recommended Magic Mouthwash. Yesterday 01/23/21 was seen again [facility]- was prescribed Triamcinolone acetonide 0.1%- this has since made blisters worse. She denies any sun exposure, fevers, N/V/D. Reports poor appetite an 35lb weight loss since back surgery 6 months ago. She has urinary incontinence and frequency- has had (-) UTI's- was seen by Urology. Supriya Condon, [facility], [place], [address], [place] [facility] 01/24/2021 16:38:11 01/27/2021 text/html 80 year-old fema luh with history of RA on prednisone, DM, HTN, HLD, back pain, S/P lumbar surgery 07/2020, who is being seen by for FU for oral pain.Pt notes that she noticed a sudden onset of mouth sores on her upper and lower lip with increased saliva for the past 3 weeks. She has been given treatment including topical steroids, magic mouthwash and viscous lidocain. PT has not had any improvement with this. She feels the rash is getting worse. It is not spreading and is confined to her inner upper and lower lip. She denies any pain to the back of her throat. She denies any difficulty or pain with swallowing. There has been no shortness of breath, no fevers, chills, abdominal pain. She denies any rashes elsewhere. She has not had an appetite.She has a 35 pound weight loss since her back surgery in July. She feels this has been worse for her. THe pain to her back is unchanged after the surgery. She has also had urinary incontinence since the surgery 7 months ago. THis has been difficult for her.She has had her urine tested and no infections. AMAURI TREVINO, [address], [place], [address], [place] [facility] 01/27/2021 15:05:43 OBGyn Episode No OBEpisode recorded.
== END 2024-11-12 13:28 | disposition home or self-care (01) ==
LOC: HO.RHES 12:35
PROVIDERS: PCP Internal Medicine; Visit Provider Internal Medicine Rheumatology
DX: M06.9 Rheumatoid arthritis, unspecified (principal); R53.1 Weakness; M85.80 Other specified disorders of bone density and structure, unspecified site; Z78.0 Asymptomatic menopausal state
CPT/HCPCS: 99214; G2211

== ENCOUNTER 2024-11-12 12:34 | Outpatient (REF) | payer MEDICARE, SELFPAY ==
--- OUTSIDE RECORDS SUMMARY | 2024-11-12 15:49 | XMS_ITS | Data Portability ---
Author Organization [place] - [facility],, LETICIA MCGUIRE MD Address [address] [address] Care Team Providers Care Water Pollution Scientist Name Role Phone ADDIE SANDOVAL OTHER Assessment No assessment recorded. Plan of Treatment Reminders Order Date Submit Date Provider Last Modified By Organization Details Last Modified Time Details Appointments None recorded. Lab pap test, thinprep, cervical 2019 020 [email or web address] [facility], Cytopathology Service, [address] [place] [address], [address], 0 08:12:24 pap test, thinprep, cervical 2018 019 [facility], Cytopathology Service, [address] [place] [address], [address], 9 11:37:59 pap, LB + reflex HR HPV 2017 018 [facility], Cytopathology Service, [address] [place] [address], [address], 8 17:07:34 pap test, thinprep, cervical 2017 018 [facility], Cytopathology Service, [address] [place] [address], [address], 8 13:17:36 pap test, thinprep, cervical 2016 017 [facility], Cytopathology Service, [address] [place] [address], [address], 7 14:05:52 Referral None recorded. Procedures None recorded. Surgeries None recorded. Imaging MAMMO, screening , digital, bilateral 2019 020 addiczykarina [facility] (Mammography), [address] [place] [address], [address], 2 07:44:12 bone density [address] ([facility]), [address] [place] [address], [address], 2 07:22:30 MAMMO, screening , digital, bilateral 2018 019 [facility] (Central Scheduling Radiology), [address] [place] [address], [address], 0 15:06:24 MAMMO, screening , digital, bilateral 2017 018 [facility] (Central Scheduling Radiology), [address] [place] [address], [address], 9 07:28:13 MAMMO, screening , digital, bilateral 2016 017 [facility] (Central Scheduling Radiology), [address] [place] [address], [address], 7 10:27:41 Medication Orders nystatin 100,000 unit/gram topical powder 2019 020 INTERFACE [id number], [address] [place] [address], [address], 0 14:24:19 Nystop 100,000 unit/gram topical powder 2017 018 [email or web address] [id number], [address] [place] [address], [address], 0 14:04:08 nystatin 100,000 unit/gram topical powder 2016 017 [email or web address] [id number], [address] [facility], [place], [address], 0 14:04:08 Patient TargetsNo targets recorded. Patient Instructions Encounter Date Encounter Id Patient Instructions Last Modified By Organization Details Last Modified Time 01/11/2017 [id number] advance directiv es: care instructions grabiel Not available 01/11/2017 12:52:54 atrophic vaginit is: care instructions miltontorsbilly Not available 01/11/2017 12:52:54 She is here for annual exam. She has been in [place] and developed a rash in her groin, it has not gone away. She has mild monilia of skin, rx Nystatin powder. Advance directives discussed, literature given. She appears to be doing well. She is advised to get 1500 mg of calcium daily into her diet and supplements combined. We discussed the benefits of adequate vitamin D supplementation to at least 400 units daily, daily aerobic exercise of 30 minutes, and stress reduction. Monthly self breast exam was taught, and stressed, and is advised to call if she discovers any new mass in the breast. Seat belt use for herself and passengers advised. The significant health benefits of becoming and remainig fit, with an optimal BMI, were also discussed. We discussed the potential reduction in chronic discomfort, the diminished risks of hypertension, diabetes, and heart disease with the proper weight management, and improved mobility as she ages. Strategies to reach and maintain her target weight wer discussed in detail, all questions answered. Not available 01/11/2017 12:52:31 01/13/2018 [id number] atrophic vaginit is: care instructions Not available 01/13/2018 11:15:18 She is here for annual exam, is doing well. She usually dum[place] in [place], [place], but they didn't this year, they rented it out. She has a personal history of breast cancer. She is seeing Dr. Marie for her rheumatoid arthritis. She has a health care proxy. She notes that she can not sleep in any bed other than her own, she gets insomnia so bad that if I'm away for 4 weeks then I don't sleep for 4 weeks. she notes 10 mg of ambien helps but she can't get enough from her PCP, She only gives me 28 of the 5 mg and I need to double up! She is advised to ask her PCP to order a sleep study, to see if they analog circuit designer find a better ad terminal makeup operator solution for her than Ambien. She appears to be doing well. She is advised to get 1500 mg of calcium daily into her diet and supplements combined. We discussed the benefits of adequate vitamin D supplementation to at least 400 units daily, daily aerobic exercise of 30 minutes, and stress reduction. Monthly self breast exam was taught, and stressed, and is advised to call if she discovers any new mass in the breast. Seat belt use for herself and passengers advised. The significant health benefits of becoming and remainig fit, with an optimal BMI, were also discussed. We discussed the potential reduction in chronic discomfort, the diminished risks of hypertension, diabetes, and heart disease with the proper weight management, and improved mobility as she ages. Strategies to reach and maintain her target weight wer discussed in detail, all questions answered. Not available 01/13/2018 12:16:29 04/22/2018 [id number] abnormal Pap danilo t: care instructions Not available 04/22/2018 13:25:29 She is here for repeat pap and also for a complaint of skin monilia. Her prior pap showed ASCUS without HR HPV. PAp taken. Rx NyStop powder given, wiht explaination of how to use it. Ways to prevent recurrent monilia discussed. If negative then repeat pap at next annual, if ASCUS then colpo Not available 04/22/2018 14:05:43 01/14/2019 [id number] advance benefici rachid notice information Not available 01/14/2019 11:08:24 advance care planning for heart failure: care instructions Not available 01/14/2019 11:08:24 frequent urinati on: care instructions Not available 01/14/2019 11:08:24 type 2 diabetes: care instructions Not available 01/14/2019 11:08:24 high blood pressure: care instructions Not available 01/14/2019 11:08:24 learning about h igh blood pressure Not available 01/14/2019 11:08:24 atrophic vaginit is: care instructions Not available 01/14/2019 11:08:24 She is here for annual exam, her rheumatoid arthritis flares on and off in the first three fingers of her right hand, she notes. note from 2018: She is here for annual exam, is doing well. She usually dumas in [place], [place], but they didn't this year, they rented it out. She has a personal history of breast cancer. She is seeing Dr. Marie for her rheumatoid arthritis. She has a health care proxy. We discussed that the distribution and tingling symptoms she mentions may actually be carpal tunnel syndrome, as she noted it flared after holding a book at an angle, doing Sidoku for many hours. She is advised to disucss this wiht her rheaumatologist and to avoid holding her wrist in angles for long periods of times. She appears to be doing well. She is advised to get 1500 mg of calcium daily into her diet and supplements combined. We discussed the benefits of adequate vitamin D supplementation to at least 400 units daily, daily aerobic exercise of 30 minutes, and stress reduction. Monthly self breast exam was taught, and stressed, and is advised to call if she discovers any new mass in the breast. Seat belt use for herself and passengers advised. The significant health benefits of becoming and remainig fit, with an optimal BMI, were also discussed. We discussed the potential reduction in chronic discomfort, the diminished risks of hypertension, diabetes, and heart disease with the proper weight management, and improved mobility as she ages. Strategies to reach and maintain her target weight wer discussed in detail, all questions answered. Not available 01/14/2019 11:09:38 04/22/2020 [id number] advance benefici rachid notice information Not available 04/22/2020 14:23:37 advance care planning for heart failure: care instructions Not available 04/22/2020 14:23:36 atrophic vaginit is: care instructions Not available 04/22/2020 14:23:36 learning about healthy weight Not available 04/22/2020 14:23:36 She is here for annual exam, she notes her PCP does not do a breast exam. She has a past history of left breast cancer. Note from 2019: She is here for annual exam, her rheumatoid arthritis flares on and off in the first three fingers of her right hand, she notes. note from 2018: She is here for annual exam, is doing well. She usually dumas in [place], [place], but they didn't this year, they rented it out. She has a personal history of breast cancer. She is seeing Dr. Marie for her rheumatoid arthritis. She has a health care proxy. She appears to be doing well. She requests rx for NyStop powder, is leaving for [place] at the end of this month. She is advised to get 1500 mg of calcium daily into her diet and supplements combined. We discussed the benefits of adequate vitamin D supplementation to at least 400 units daily, daily aerobic exercise of 30 minutes, and stress reduction. Monthly self breast exam was taught, and stressed, and is advised to call if she discovers any new mass in the breast. Not available 04/22/2020 14:24:58 Reason for Referral None Reported. Results Created Date Observation Date Name Description Value Unit Range Abnormal Flag Note LastModifiedBy Organization Detail LastModifiedTime 01/12/20 17 01/11/2017 pap, LB [id number] ThinP rep Pap, Image d: NEGAT MINDY FOR SQUAM OUS INTRA EPITH ELIRENU Trimble AND LUCY LIM . Atrop hy with infla fidelinati on is prese nt. Mae Wang CT( CP) (Case elect nicole emily becker d 01 17 2017) ADEQU ACY: Satis facto ry. SOURC E: ThinP rep Pap HPV IF Ascus : Refle x 16 and 18, Cervi kathy, Image d: CLINI KATHY INFOR MATIO N: HPV If Diagn osis of ASCUS . HISTO RY OF AVERYOSVALDO Derek Hilliard; LAST PAP 6, Z77.9 , V15.8 9, Z91.8 9 Not Available [facility], Cytopathology Service [address] [place], [address], 01/17/2017 14:05:52 01/14/20 18 01/13/2018 pap, LB [id number] ThinP rep Pap, Image d: ATYPI KATHY SQUAM OUS CELLS OF UNDET ERMIN ED SIGNI FICAN CE (ASCU S) . Atrop hy. Abund ant parti ally obscu ring acute infla mmato ry cells are prese nt. RESUL TS OF APTIM A HIGH RISK HPV ASSAY : NEGAT MINDY (Sero types 16,18 ,31,3 3,35, 39,45 ,51,5 2,56, 58,59 ,66,6 8) Letitia flores CT( CP) (Case Scree luna 01 14 2018) FRANKIE CAMPO M.D., Patho logis t (Case elect nicole diaz rosita d 01 21 2018) ADEQU ACY: Satis facto ry. SOURC E: ThinP rep Pap HPV IF ASCUS , Cervi kathy, Image d: CLINI KATHY INFOR MATIO N: HPV If Diagn osis of ASCUS . Menop ause, lps neg, z12.4 Not Available [facility], Cytopathology Service [address] [place], [address], 01/22/2018 13:17:35 04/22/20 18 04/22/2018 pap, LB [id number] ThinP rep Pap and Cell Block : NEGAT MINDY FOR SQUAM OUS INTRA EPITH ELIAL LESIO N AND MALIG RAPHAEL . Atrop hy. [place]ino Thi Stewart CT( CP) (Case Scree luna 04 24 2018) Frankie Campo M.D., Patho logis t (Case elect nicole emily rosita d 04 25 2018) ADEQU ACY: Satis facto ry. SOURC E: ThinP rep Pap HPV IF ASCUS , Cervi kathy, Image d: CLINI KATHY INFOR MATIO N: HPV If Diagn osis of ASCUS . lps 8 ASCUS witho ut HPV, Z12.4 Cell block 04/23 Not Available [facility], Cytopathology Service [address] [place], [address], 04/28/2018 17:07:34 01/15/20 19 01/14/2019 pap, LB [id number] ThinP rep Pap, Image d: NEGAT MINDY FOR SQUAM OUS INTRA EPITH ELIAL LESIO N AND MALIG RAPHAEL . Atrop hy. Caitlyn smith CT( CP) (Case elect nicole diaz rosita d 01 19 2019) ADEQU ACY: Satis facto ry . SOURC E: ThinP rep Pap HPV IF ASCUS , Cervi kathy, Image d CLINI KATHY INFOR MATIO N: HPV If Diagn osis of ASCUS . LPS NEG [Z12. 4, Z91.8 9] Not Available [facility], Cytopathology Service [address] [place], [address], 01/19/2019 11:37:59 04/22/20 20 04/22/2020 pap test, thinp rep, cervi kathy [id number] ThinP rep Pap, Image d: NEGAT MINDY FOR SQUAM OUS INTRA EPITH ELIAL LESIO N AND MALIG RAPHAEL . React mindy cellu lar malik es. Atrop hy and acute infla mmati on. Palmoino Thi Stewart CT( CP) (Case Scree luna 04 26 2020) Hima Luz M.D. , Patho logis t (Case elect nicole diaz rosita d 04 28 2020) ADEQU ACY: Satis facto ry . SOURC E: ThinP rep Pap HPV IF ASCUS , Cervi kathy, Image d CLINI KATHY INFOR MATIO N: HPV If Diagn osis of ASCUS . LPS 9 neg, z12.4 , z91.8 9 Not Available [facility], Cytopathology Service [address] [place], [address], 04/29/2020 12:01:21 02/16/20 17 02/15/2017 MAMMO , scree sallie, digit al, bilat eral No observ ation record ed. [address] [facility] Dept [address] [place], [address], 02/15/2017 10:37:08 07/21/19 20 07/21/2019 MAMMO , scree sallie, digit al, bilat eral No observ ation record ed. [address] [facility] Dept [address] [place], [address], 07/22/2019 09:17:11 Result Notes None recorded. Problems Name Problem SNOMED Code Status Onset Date Resolution Date Notes Provider Name and Address Organization Details Recorded Time Type 2 diabetes mellitus without complicatio n [id number] Active Leticia Mcguire MD [address], [address], [place] [facility], 6 11:03:23 Increased frequency of urination 108335351 Active Leticia Mcguire MD [address], [place], [address], [place] [facility], 6 11:03:23 Postmenopau berhane bleeding 63378177 Active Leticia Mcguire MD [address], [address], [place] [facility], 6 11:03:23 Benign essential hypertensio n 5393987 Active Leticia Mcguire MD [address],[place], [address], [place] [facility], 6 11:03:23 Primary malignant neoplasm of female breast 34831590 Active BRCA negative Leticia Mcguire MD [address], [address], [place] [facility], 6 11:03:23 Polyp of corpus uteri 26048659 Active Leticia Mcgiure MD [address], [place], [address], [place] [facility], 6 11:03:23 Personal history of primary malignant neoplasm of breast 370639100 Active 2016 Leticia Mcguire MD [address], [place], [address], [place] [facility], 7 12:50:21 Candidiasis of skin 82316879 Active 2016 Leticia Mcguire MD [address], [place], [address], [place] [facility], 7 12:50:32 Problem Notes None recorded. Procedures Surgical History Date Name Laterality Status Provider Name and Address Organization Details Recorded Time 3 Other completed Perla Maxwell [place] - [facility], 12/10/2013 09:48:39 0 Other completed Perla Laamsor [place] - [facility], 06/17/2012 14:35:15 8 Other completed Perla Mecstefaniwor [place] - [facility], 12/10/2014 13:10:19 4 Other completed Perla Lamasor [place] - [facility], 06/17/2012 14:35:15 1 Breast Biopsy completed Leticia Mcguire MD [address], [place], [address], [place] [facility], 06/17/2012 14:58:57 8 Tonsillectomy completed Perla Maxwell [place] - [facility], 06/17/2012 14:35:15 Imaging Results Imaging Date Name Status LastModified by [facility] Details LastModified Time 02/15/2017 MAMMO, screening, digital, bilateral completed [email or web address] [facility] Diagnosit Imaging Dept [address] [place], [address], 02/15/2017 10:37:08 07/21/2019 MAMMO, screening, digital, bilateral completed [email or web address] Diagnosit Imaging Dept [address] [place], [address], 07/22/2019 09:17:11 Procedure Notes None recorded. Medical Equipment None Reported. Allergies Allergen ID Allergen Name Allergen Category Reaction Reaction Severity Criticality Documentation Date Start Date Code Code System Note Provider Name and Address Organization Details Recorded Time 5541 morphine medicatio n vomiting Not available Not available 06/17/2012 7052 RxNorm Perla Hans mcgovern [place] - [facility], 2 14:35:15 5542 codeine medicatio n hives Not available Not available 06/17/2012 2670 RxNorm sever e react ion causi ng hives , she was hospi taliz ed for 4 days due to the aller gi react ion Leticia Mcguire MD [address] [facility],[address], [place], [address] , [place] - [facility], 3 11:27:21 5661 diltiazem Not available hives Not available Not available 06/23/2012 3443 RxNorm Perla [place] Wolf in [facility], 2 11:33:55 Medications Name Sig Start Date Stop Date Status Note LastModified by Organization Details LastModified Time losartan 50 mg tablet 04/22 completed Not Available Not Available Not Available amoxicillin 500 mg capsule active Not Available Not Available Not Available fluconazole 100 mg tablet TAKE 1 BY MOUTH EVERY DAY active Not Available Not Available No t Available atorvastati n 40 mg tablet 01/13 completed Not Available Not Available Not Available atorvastati n 80 mg tablet 01/13 completed Not Available Not Available Not Available prednisone 10 mg tablet TAKE 4 TABLETS BY MOUTH EVERY MORNING FOR 3 DAYS 3 TABS X 3 DAYS 2 TABS X 2 DAYS 1 TAB X 2 DAYS active Not Available Not Available No t Available doxycycline hyclate 100 mg capsule 01/14 completed Not Available Not Available Not Available atorvastati n 20 mg tablet 01/11 completed Not Available Not Available Not Available OneTouch Ultra Control solution active Not Available Not Available Not Available indapamide 2.5 mg tablet 01/14 completed Not Available Not Available Not Available Lidocaine Viscous 2 % mucosal solution TAKE 15 ML EVERY 3 HOURS BY ORAL ROUTE NEEDED FOR 7 DAYS. active Not Available Not Available No t Available benzonatate 200 mg capsule TAKE 1 CAPSULE BY MOUTH THREE TIMES A DAY NEEDED 01/14 completed Not Available Not Available Not Available alendronate 70 mg tablet 01/11 completed Not Available Not Available Not Available prednisone 5 mg tablet active Not Available Not Available Not Available amlodipine 2.5 mg tablet TAKE 1 TABLET BY MOUTH EVERY DAY active Not Available Not Available No t Available Detrol LA 4 mg capsule,ext ended release active Not Available Not Available Not Available valacyclovi r 500 mg tablet TAKE 1 TABLET BY MOUTH TWICE A DAY FOR 3 DAYS active Not Available Not Available No t Available ciprofloxac in 500 mg tablet 04/22 completed Not Available Not Available Not Available simvastatin 40 mg tablet active Not Available Not Available Not Available levothyroxi ne 25 mcg tablet TAKE 1 TABLET BY MOUTH DAILY active Not Available Not Available No t Available methenamine hippurate 1 gram tablet TAKE 1 TABLET BY MOUTH TWICE A DAY WITH MEALS active Not Available Not Available No t Available lorazepam 0.5 mg tablet 04/22 completed Not Available Not Available Not Available triamcinolo ne acetonide 0.1 % dental paste APPLY TO AFFECTED AREA 4 TIMES A DAY active Not Available Not Available No t Available methotrexat e sodium 2.5 mg tablet TAKE 8 TABLETS BY MOUTH ONCE A WEEK active Not Available Not Available No t Available prednisone 1 mg tablet TAKE 2 TABLETS BY MOUTH EVERY DAY active Not Available Not Available No t Available OneTouch Ultra Test strips active Not Available Not Available Not Available benzonatate 100 mg capsule TAKE 1 CAPSULE BY MOUTH THREE TIMES A DAY NEEDED 01/14 completed Not Available Not Available Not Available hydrocodone 7.5 mg-acetamin ophen 750 mg tablet active Not Available Not Available No t Available valsartan 320 mg tablet TAKE 1 TABLET BY MOUTH EVERY DAY. REPLACES LOSARTAN active Not Available Not Available No t Available Demerol 50 mg tablet Take 1 tablet every 6 hours by oral route as needed. 2012 active Not Available Not Available Not Avai lable indapamide 1.25 mg tablet active Not Available Not Available Not Available mupirocin calcium 2 % topical cream APPLY TO THE AFFECTED AREA TWICE DAILY FOR 2 WEEKS active Not Available Not Available No t [...] t Available folic acid 1 mg tablet TAKE 1 TABLET BY MOUTH DAILY. active Not Available Not Available No t Available zolpidem 5 mg tablet TAKE 1 TABLET BY MOUTH AT BEDTIME NEEDED FOR INSOMNIA active Not Available Not Available No t Available metoprolol succinate ER 25 mg tablet,exte nded release 24 hr TAKE 1 TABLET BY MOUTH DAILY active Not Available Not Available No t Available nystatin 100,000 unit/gram topical powder APPLY TO AFFECTED AREA TWICE A DAY active Not Available Not Available No t Available ibuprofen 600 mg tablet active Not Available Not Available Not Available cefuroxime axetil 500 mg tablet 01/14 completed Not Available Not Available Not Available levofloxaci n 500 mg tablet TAKE 1 TABLET BY MOUTH EVERY DAY active Not Available Not Available No t Available zolpidem 10 mg tablet TAKE 1 TABLET BY MOUTH AT BEDTIME NEEDED FOR INSOMNIA active Not Available Not Available No t Available ketoconazol e 2 % topical cream 01/14 completed Not Available Not Available Not Available lisinopril 40 mg tablet active Not Available Not Available Not Available losartan 100 mg tablet 04/22 completed Not Available Not Available Not Available irbesartan 300 mg tablet active Not Available Not Available Not Available naproxen 500 mg tablet active Not Available Not Available Not Available amoxicillin 875 mg-potassiu m clavulanate 125 mg tablet TAKE 1 TABLET BY MOUTH 2 TIMES DAILY FOR 7 DAYS. WITH FOOD active Not Available Not Available No t Available amoxicillin 500 mg-potassiu m clavulanate 125 mg tablet 01/14 completed Not Available Not Available Not Available cyclobenzap rine 5 mg tablet 01/11 completed Not Available Not Available Not Available rosuvastati n 10 mg tablet TAKE 1 TABLET BY MOUTH EVERY DAY active Not Available Not Available No t Available nitrofurant oin monohydrate /macrocryst als 100 mg capsule TAKE 1 CAPSULE BY MOUTH TWICE A DAY FOR 7 DAYS active Not Available Not Available No t Available solifenacin 10 mg tablet TAKE 1 TABLET BY MOUTH DAILY active Not Available Not Available No t Available Adacel (Tdap Adolesn/Cedric lt)(PF)2Lf- (2.5-5-3-5m cg)-5 Lf/0.5 mL IM susp 01/11 completed Not Available Not Available Not Available chlorhexidi ne gluconate 0.12 % mouthwash active Not Available Not Available No t Available OneTouch Delica Lancets 33 gauge active Not Available Not Available Not Available Shingrix (PF) 50 mcg/0.5 mL intramuscul ar suspension, kit active Not Available Not Available Not Available Fluzone High-Dose Quad 2020-21 (PF) 240 mcg/0.7 mL IM syringe PHARMACY ADMINIST[facility] active Not Available Not Available No t Available Vitals Date Recorded Heart rate Body weight Body mass index (BMI) Body height Systolic blood pressure Diastolic blood pressure Provider Name and Address Organization Details Last Updated DateTime 8 94 /min 15792.4 2 g 29.2 kg/m2 162.56 cm 123 mm[Hg] 66 mm[Hg] Sary [facility] 8 11:06:24 Date Recorded Body height Body mass index (BMI) Body weight Heart rate Systolic blood pressure Diastolic blood pressure Provider Name and Address Organization Details Last Updated DateTime 8 162.56 cm 29.2 kg/m2 58631.1 4 g 80 /min 128 mm[Hg] 72 mm[Hg] Sary Craig in [facility] [place], 8 10:05:45 Date Recorded Body height Body mass index (BMI) Body weight Heart rate Systolic blood pressure Diastolic blood pressure Provider Name and Address Organization Details Last Updated DateTime 9 162.56 cm 29.7 kg/m2 57149.4 8 g 86 /min 146 mm[Hg] 68 mm[Hg] Perla Craig in [facility], 9 10:10:36 Date Recorded Body weight Body mass index (BMI) Body height Body temperature Heart rate Systolic blood pressure Diastolic blood pressure Provider Name and Address Organization Details Last Updated DateTime 0 89785.9 2 g 29.8 kg/m2 162.56 cm 97.8 [degF] 100 /min 157 mm[Hg] 78 mm[Hg] Jodie Nolasco MA - [facility], 0 13:59:33 Date Recorded Heart rate Body weight Body mass index (BMI) Body height Systolic blood pressure Diastolic blood pressure Provider Name and Address Organization Details Last Updated DateTime 7 78 /min 73545.5 9 g 31.8 kg/m2 162.56 cm 138 mm[Hg] 70 mm[Hg] Sary Hawkinsgunnar MA - [facility], 7 11:08:42 Social History Question Answer Notes LastModified by Organizat ion Details LastModified Time Tobacco Smoking Status Former Smoker quit 30yrs ago Not Available [facility]/2020 03:19:39 What Is Your Level Of Alcohol Consumption? None [id number] Information not available 05/17/2020 What Is Your Level Of Caffeine Consumption? Occasional [id number] Information not available 05/17/2020 What Type Of Diet Are You Following? REGULAR [id number] Information not available 05/17/2020 Which Illicit Or Recreational Drugs Have You Used? No [id number] Information not available 05/17/2020 Do You Reside In Or Have You Traveled To An Area Where Ebola Virus Transmission Is Active? No [id number] Information not available 05/17/2020 Do You Or Have You Ever Used E-cigarettes Or Vape? Never Used Electronic Cigarettes [id number] Information not available 05/17/2020 Education 12 [email or web address] Information no t available 06/17/2012 What Is Your Occupation? Retired [id number] Information not available 05/17/2020 How Many Days In The Past Year Have You Had A Heavy Drinking Consumption (4+ Female, 5+ Male)? 0 Information not available 01/11/2017 High Number Of Sexual Partners No Information not available 01/11/2017 To Which Gender Do You Self-identify? Female Information not available 01/11/2017 Marital Status elvia Lawler n not available 06/17/2012 What Was The Date Of Your Most Recent Tobacco Screening? 04/22/2020 [id number] Information not available 05/17/2020 Are You Sexually Active? No [id number] Information not available 05/17/2020 Do You Or Have You Ever Used Smokeless Tobacco? Never Used Smokeless Tobacco [id number] Information not available 05/17/2020 How Much Tobacco Do You Smoke? No [id number] Information not available 05/17/2020 General Stress Level Medium [email or web address] Information not available 04/22/2020 How Many Years Have You Smoked Tobacco? 19 [id number] Information not available 05/17/2020 Have You Recently (within The Last 12 Weeks, Or During A Current ) Traveled To Or Lived In A Zika-affected Area? No C[place] Information not available 01/11/2017 Sex: Unknown Functional Status Question Answer Note LastModified by Organizat ion Details LastModified Time What is your exercise level? Occasional [id number] Information not available 05/17/2020 Mental Status None recorded. Family History Relationship Description Onset Age of this Age Resolved Age Notes LastModified by Organization Details LastModified Time Maternal Aunt Malignant tumor of breast 70 previo usly record ed as Breast Cancer Not available 12/16/2015 11:01:50 Father Diabetes mellitus previo usly record ed as Diabet es Not available 12/16/2015 11:01:50 Mother Heart disease previo usly record ed as Heart Proble m Not available 12/16/2015 11:01:50 Mother Malignant tumor of colon 75 previo usly record ed as Colon Cancer ? Not available 12/16/2015 11:01:50 Medical History Condition Response Anesthesia complications N High Blood Pressure Y Autoimmune Condition N Thyroid Problems Y Kidney or Bladder Problems Y GI Problems N Depression N Lung Disease N Defects or Inherited Disease N History of Ovarian Cancer N Anemia N History of Breast Cancer Y BRCA testing in past Y Psychiatric Illness N Anxiety Disorder N Diabetes Y Arthritis Y Headaches or Migraines N Infertility N Asthma N History of Cancer N Endometriosis N Hepatitis N Heart Disease N Hypertension Y Gynecological History Statement/Question Response If Post Menopausal, Age at Menopause 53 Age at Menarche 15 Age at First Child 22 Most Recent Bone Density Hormone Replacement Therapy N Obstetrics History GPAL:G 3 P 3 0 0 3 Type Value Full Term 3 Living 3 Total 3 Immunizations Vaccine Type Date Status Note Provider Nam e and Address Organization Details Recorded Time Influenza, split virus, trivalent, preservative 3 completed HELEN Mo in [facility], 12/10/2013 09:48:38 Influenza, split virus, trivalent, preservative 4 completed HELEN Mo in [facility], 12/10/2014 13:10:19 Influenza, split virus, trivalent, preservative 5 completed HELEN Mo in [facility], 12/16/2015 10:55:46 influenza, unspecified formulation 6 completed HELEN Lazo in [facility], 01/11/2017 11:20:49 influenza, unspecified formulation 7 completed HELEN Lazo in [facility], 01/13/2018 11:10:28 influenza, unspecified formulation 8 completed HELEN Lazo in [facility], 04/22/2018 10:07:28 Influenza, split virus, quadrivalent, preservative 0 completed HELEN Cabrera in [facility], 04/22/2020 14:05:03 zoster live 1 completed HELEN Mo in [facility], 06/17/2012 14:35:16 Influenza, split virus, trivalent, preservative 2 completed Leticia Mcguire MD [address] [facility],[address], [place], [address], [facility], 06/17/2012 14:54:43 Past Encounters Encounter ID Performer Location Encounter Start Date Encounter Closed Date Diagnosis/Indication Diagnosis SNOMED-CT Code Diagnosis ICD10 Code Diagnosis Note [id number] MD LETICIA Meraz MD [address] [facility],[address] [place] [address] 06/17/2012 14:08:30 06/19/2012 09:52:52 [id number] MD LETICIA Meraz MD [address] [place] [address],[place] [address] 06/23/2012 14:55:01 06/24/2012 09:34:59 [id number] MD LETICIA Meraz MD [address] [place] [address],[address] [place] [address] 11/18/2012 10:53:18 11/19/2012 12:12:08 [id number] MD LETICIA Meraz MD [address] [place] [address],[address] [place] [place] [address] 12/02/2012 08:52:38 12/03/2012 09:59:53 [id number] MD LETICIA Meraz MD [address] [place] [address],[address] [place] [place] [address] 12/10/2013 09:35:35 12/10/2013 13:48:38 Screening mammography 36303579 History of clinical finding in subject [id number] MD LETICIA Meraz MD [address] [place] [address],[address] [place] [place] [address] 12/10/2014 13:00:48 12/10/2014 14:31:52 History of clinical finding in subject 643775898 Screening mammography [id number] MD LETICIA Meraz MD [address] [place] [address],[address] [place] [place] [address] 12/16/2015 10:43:08 12/16/2015 14:55:57 History of clinical finding in subject 598397866 Z91.89 Screening mammography 24 605804 Z12.31 [id number] MD LETICIA Meraz MD [address] [place] [address],[address] [place] [place] [address] 01/11/2017 10:57:53 01/11/2017 13:09:31 History of clinical finding in subject 372496762 Z91.89 Screening mammography 24 831738 Z12.31 Personal h istory of primary malignant neoplasm of breast 399469761 Z85.3 Candidiasis of skin 4988 3006 B37.2 Cares for self 772254177 Z76.89 [id number] MD LETICIA Meraz MD [address] [place] [address], [address] [place] [address] 01/13/2018 10:37:51 01/13/2018 12:19:12 History of clinical finding in subject 124685991 Z91.89 Screening mammography 24 606834 Z12.31 [id number] MD LETICIA Meraz MD [address] [place] [address], [address] [place] [address] 04/22/2018 09:53:53 04/22/2018 14:08:31 Atypical squamous cells of undetermined significance on cervical Papanicolaou smear 996373341 R87.610 Candidiasis of skin 4988 3006 B37.2 [id number] MD LETICIA Meraz MD [address] [place] [address], [address] [place] [address] 01/14/2019 09:54:16 01/14/2019 11:36:40 History of clinical finding in subject 228487167 Z91.89 Screening mammography 24 310657 Z12.31 Advance care planning 71 4921310 Z71.89 Personal h istory of primary malignant neoplasm of breast 866789174 Z85.3 Benign ess ential hypertension 5647512 I10 Increased frequency of urination 733473088 R35.0 Type 2 luis betes mellitus without complication 944187608 E11.9 [id number] MD LETICIA Meraz MD [address] [place] [address], [address] [place] [address] 04/22/2020 13:55:27 04/22/2020 14:43:25 History of clinical finding in subject 965344431 Z91.89 Screening mammography 24 036842 Z12.31 Advance care planning 71 3618212 Z71.89 Screening for osteoporosis 000855926 Z13.820 Candidiasis of skin 4988 3006 B37.2 Health Concerns Section Related Observation LastModified by Organization Detai ls LastModified Time None Recorded Concern Status LastModified by Organization Details LastModified Time None Recorded Advance Directives Directive None Recorded Payers Encounter Date Sequence Insurance Name Policy Number Policy Swanson Covered Member ID Swanson Member ID Guarantor Name 01/11/2017 1 [employer] (MEDICARE REPLACEMENT HMO) [id number] Gely Busby [id number] Gely Busby 01/13/2018 1 [employer] (MEDICARE REPLACEMENT HMO) [id number] Gely Busby [id number] Gely Busby 04/22/2018 1 [employer] (MEDICARE REPLACEMENT HMO) [id number] 1 Gely Busby [id number] Gely Busby 01/14/2019 1 [employer] (MEDICARE REPLACEMENT HMO) [id number] Gely Busby [id number] Gely Busby 04/22/2020 1 [employer] (MEDICARE REPLACEMENT HMO) [id number] Gely Busby [id number] Gely Busby Notes Date Note Type Note Provider Name and Address Organization Details Recorded Time 01/11/2017 text/html She is here for annual exam. She has been in [place] and developed a rash in her groin, it has not gone away. Leticia Mcguire MD [address] [place] [address],[address], [place], [address], [place] - [facility], 01/11/2017 12:52:54 01/13/2018 text/html She is here for annual exam, is doing well. She usually [facility] in [place], [place], but they didn't this year, they rented it out. She has a personal history of breast cancer. She is seeing Dr. Marie for her rheumatoid arthritis. She notes that she can not sleep in any bed other than her own, she gets insomnia so bad that if I'm away for 4 weeks then I don't sleep for 4 weeks. she notes 10 mg of ambien helps but she can't get enough from her PCP, She only gives me 28 of the 5 mg and I need to double up! Leticia Mcguire MD [address], [place], [address], [place] - [facility], 01/13/2018 12:16:58 04/22/2018 text/html She is here for repeat pap and also for a complaint of skin monilia. Her prior pap showed ASCUS without HR HPV. Leticia Mcguire MD [address], [place], [address], [place] - [facility], 04/22/2018 14:05:58 01/14/2019 text/html She is here for annual exam, her rheumatoid arthritis flares on and off in the first three fingers of her right hand, she notes. note from 2018: She is here for annual exam, is doing well. She usually [facility] in [place], [place], but they didn't this year, they rented it out. She has a personal history of breast cancer. She is seeing Dr. Marie for her rheumatoid arthritis. She has a health care proxy. Leticia Mcguire MD [address], [place], [address], [place] - [facility], 01/14/2019 11:25:18 04/22/2020 text/html She is here for annual exam, she notes her PCP does not do a breast exam. She has a past history of left breast cancer. Note from 2019: She is here for annual exam, her rheumatoid arthritis flares on and off in the first three fingers of her right hand, she notes. note from 2018: She is here for annual exam, is doing well. She usually [facility] in [place], [place], but they didn't this year, they rented it out. She has a personal history of breast cancer. She is seeing Dr. Marie for her rheumatoid arthritis. She has a health care proxy. Leticia Mcguire MD [address], [place], [address], [place] - [facility], 04/22/2020 14:25:24 OBGyn Episode No OBEpisode recorded.
--- OUTSIDE RECORDS SUMMARY | 2024-11-12 15:49 | XMS_ITS ---
Author Name [facility] Organization Unknown History of Medication Use Medication Directions Dispensed Refills Start Date End Date Stat zolpidem (AMBIEN) 10 mg tablet TAKE 1 TABLET BY MOUTH AT BEDTIME NEEDED FOR SLEEP. MAX DAILY AMOUNT 10 MG 08/31/2024 active methenamine hippurate (HIPREX) 1 gram tablet Take 1 tablet (1 g total) by mouth 2 (two) times a day. 05/28/2024 active acetaminophen (TYLENOL) 500 mg tablet Take 1 tablet (500 mg total) by mouth every 8 (eight) hours if needed. 09/09/2023 active docusate sodium (COLACE) 100 mg capsule Take 1 capsule (100 mg total) by mouth 2 (two) times a day. 09/09/2023 active docusate sodium (COLACE) 100 mg capsule Take 1 capsule (100 mg total) by mouth 2 (two) times a day. 09/09/2023 active ibuprofen (ADVIL,MOTRIN) 800 mg tablet Take 1 tablet (800 mg total) by mouth every 8 (eight) hours if needed. 09/09/2023 active traMADoL (ULTRAM) 50 mg tablet Take 1 tablet (50 mg total) by mouth every 6 (six) hours if needed. 09/09/2023 active metoprolol succinate (TOPROL-XL) 25 mg 24 hr tablet Take 1 tablet (25 mg total) by mouth 1 (one) time each day. 09/03/2023 active zolpidem (AMBIEN) 10 mg tablet Take 1 tablet (10 mg total) by mouth at bedtime as needed for sleep. Max Daily Amount: 10 mg 08/01/2023 active omeprazole (PriLOSEC) [address] capsule Take 1 capsule (20 mg total) by mouth 2 (two) times a day. 06/07/2023 active rosuvastatin (CRESTOR) 10 mg tablet Take 1 tablet (10 mg total) by mouth 1 (one) time each day. 06/07/2023 active predniSONE (DELTASONE) 1 mg tablet TAKE 2 TABLETS BY MOUTH EVERY DAY STRENGTH: 1 MG 05/13/2023 active hydroxychloroquine (PLAQUENIL) 200 mg tablet Take 1.5 tablets (300 mg total) by mouth 1 (one) time each day. 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 ProblemAct [facility] Hiatal hernia active 2014-11-16 ProblemAct [facility]_T HS[facility]AN Hypercholesterolemia active 2004-08-17 ProblemAct [facility] CKD (chronic kidney disease) stage 3, GFR 30-59 ml/min ([facility] V24, [facility] V28) active 2019-07-09 ProblemAct [facility] B12 deficiency active 2024-06-23 ProblemAct [facility]_ THS[facility] Hematuria active 2001-12-18 ProblemAct [facility] Microalbuminuria active 2015-12-08 ProblemAct C T_THSFRAN Esophageal reflux active 2000-10-03 ProblemAct [facility] Endocervical polyp active 2011-08-27 ProblemAct [facility] Malignant neoplasm of female breast ([facility] V24, [facility] V28) active 2005-09-15 ProblemAct [facility] Recurrent UTI active 2023-07-18 ProblemAct [facility]T HS[facility] Reflux esophagitis active 2014-11-16 ProblemAct [facility] COVID-19 virus infection active 2023-04-24 ProblemAct [facility] Hypothyroidism active 2005-06-06 ProblemAct [facility]_ [facility] Coronary artery disease involving [place]qu[place] coronary artery of [place] heart without angina pectoris active 2018-11-17 ProblemAct [facility] HS[facility] Cataract active 2010-07-21 ProblemAct [facility] AN Basal cell carcinoma (BCC) in situ of skin active 2024-06-23 ProblemAct [facility] Type II diabetes mellitus with nephropathy ([facility] V24, [facility] V28) active 2006-12-23 ProblemAct [facility] LVH (left ventricular hypertrophy) active 2012-09-28 ProblemAct [facility] Rheumatoid arthritis ([facility] V24, [facility] V28) active 2024-06-23 ProblemAct C T_THSFRAN Syncope active 2005-09-15 ProblemAct [facility] AN Localized osteoarthrosis, lower leg active 2005-06-28 ProblemAct [facility] Ascending aorta dilatation ([facility] V24) active 2020-06-20 ProblemAct [facility]
--- OUTSIDE RECORDS SUMMARY | 2024-11-12 15:49 | XMS_ITS | Clinical Summary ---
Author Organization [facility] Address [address] [place] [address] Care Team Providers Care Bill Peddler Name Role Phone Pcp, No Primary Care Provider Unavailabl e Allergies Active Allergy Reactions Criticality Noted Date Comments Codeine Unknown 03/09/2020 Morphine Vomiting 03/08/2020 Medications aspirin (Aspir-Low) 81 mg EC tablet Take 81 mg by mouth 1 (one) time each day. 8 Active atorvastatin (LIPITOR) 80 mg tablet Take 80 mg by mouth 1 (one) time each day. Active oxybutynin XL (DITROPAN-XL) 5 mg 24 hr tablet oxybutynin chloride ER 5 mg tablet,extended release 24 hr 0 Active levothyroxine (SYNTHROID, UNITHROID) 25 mcg tablet levothyroxine 25 mcg tablet 0 Active methotrexate 2.5 mg tablet methotrexate sodium 2.5 mg tablet 0 Active valsartan (DIOVAN) 320 mg tablet Take 320 mg by mouth. 0 Active zolpidem (AMBIEN) 5 mg tablet zolpidem 5 mg tablet 0 Active Active Problems Problem Noted Date Diagnosed Date Syncope and collapse 03/09/2020 History of syncope 03/09/2020 Osteoarthritis of lumbar spine 11/19/2019 CKD (chronic kidney disease) stage 3, GFR 30-59 ml/min 07/09/2019 Coronary artery disease invo lving [place] coronary artery of [place] heart without angina pectoris 11/17/2018 Community acquired pneumonia 10/01/2018 Thoracic compression fracture 02/28/2016 Microalbuminuria 12/08/2015 Hiatal hernia 11/16/2014 Overview (03/09/2020): 5 cm axial hiatal hernia without lesions at upper GI endoscopy 11/16/2014. Reflux esophagitis 11/16/2014 Overview (03/09/2020): Approximate grade C reflux esophagitis at upper endoscopy 11/16/2014 while on treatment with omeprazole 20 mg once a day. Seropositive rheumatoid arthritis 05/29/2013 Overview (03/09/2020): RF positive. Onset fall 2011. Methotrexate started 2012 LVH (left ventricular hypertrophy) 09/28/2012 Overview (03/09/2020): On echo 09/2012, diastolic dysfunction Endocervical polyp 08/27/2011 Cataract 07/21/2010 Insomnia 09/29/2007 Overview (03/09/2020): With travel, rare ambien Type II diabetes mellitus with nephropathy 12/23 Overview (03/09/2020): 12/19 borderline pos OGTT (153, A1c 6.1), neg eye exam Dr Arnold 06/22 Syncope 09/15/2005 Overview (03/09/2020): 2004--eval neg (vasovagal) 07/20--clearly vasovagal 03/20--taken off hydrochlorothiazide Malignant neoplasm of female breast 09/15/2005 Overview (03/09/2020): Mastectomy left 1980, reconstruction 1984, IMO update Localized osteoarthrosis, lower leg 06/28/2005 Overview (03/09/2020): IMO update Hypothyroidism 06/06/2005 Hypertension 06/06/2005 Hypercholesterolemia 08/17/2004 Hematuria 12/18/2001 Overview (03/09/2020): Chronic mild hematuria x yrs, eval neg--also microalbuminuria 12/19--lisinopril. Previous cystoscopy. Neg ultrasound 02/19 Esophageal reflux 10/03/2000 Family History Medical History Relation Name Comments No Known Problems Brother No Known Problems Daughter No Known Problems Sister No Known Problems Son Relation Name Status Comments Brother Daughter Sister Son Social History Tobacco Use Types Packs/Day Years Used Date Smoking Tobacco: Former Smokeless Tobacco: Never Alcohol Use Standard Drinks/Week Comments Not Currently 0 (1 standard drink = 0.6 oz pur e alcohol) Comments Unknown Sex and Gender Information Value Date Recorded Sex Assigned at Not on file Legal Sex Female 9:21 PM EDT Gender Identity Not on file Sexual Orientation Not on file Last Filed Vital Signs Vital Sign Reading Time Taken Comments Blood Pressure 141/84 03/10/2020 9:59 AM EDT Pulse 103 03/10/2020 9:59 AM EDT Temperature 36.7 ??C (98 ??F) 03/10/2020 7:52 AM EDT Respiratory Rate 16 03/10/2020 7:52 AM EDT Oxygen Saturation 95% 03/10/2020 9:59 AM EDT Inhaled Oxygen Concentration - - Weight 81.3 kg (179 lb 3.7 oz) 03/10/2020 4:21 A M EDT Height 165.1 cm (5' 5 ) 03/08/2020 9:30 PM EDT Body Mass Index 29.83 03/08/2020 9:30 PM EDT Plan of Treatment Pending Results Name Type Priority Associated Diagnoses Date /Time Extra Tubes Lab STAT 03/08/2020 9: 30 PM EDT PLACEHOLDER PINK Lab STAT 03/08/20 20 9:30 PM EDT Health Maintenance Due Date Last Done Comments Mammogram 1942 IPV Vaccines (2 of 3 - Adult catch-up series) 09/11/2004 08/14/2004 Fall Risk Screening 2007 Zoster Vaccines (2 of 3) 01/02/2011 11/07/2010 Medicare Annual Wellness Visit 08/13/2012 08/13/2011, 10/03/2000, 10/27/1998 RSV 60+ (1 - 1-dose 75+ series) 2017 COVID-19 Vaccine ( - 2023- season) 2024 Influenza Vaccine (Season Ended) 2025 04/06/2019, 04/14/2018, 04/01/2017, Additional history exists Tdap and Td Vaccines Adult 05/25/2025 05/25/2015 Hepatitis A Vaccines Aged Out 08/14/2004 No long er eligible based on patient's age to complete this topic Pneumococcal Vaccine: 50+ Years Completed 01/14/2015, 02/15/2014, 06/06/2005 HIB Vaccines Aged Out No longer eligi ble based on patient's age to complete this topic HPV Vaccines Aged Out No longer eligi ble based on patient's age to complete this topic Meningococcal Vaccine Aged Out No daniella karissa eligible based on patient's age to complete this topic RSV <20 Months Aged Out No longer gary gible based on patient's age to complete this topic Insurance MANAGED MEDICARE GENERIC Advance Directives * Full Code (Latest Code Status on File) Date Activated Date Inactivated Comments 03/09/2020 3:10 AM 03/10/2020 1:29 PM Care Teams Bill Peddler Relationship Specialty Start Date End Date Pcp, No No PCP On File JANICE Cannon [id number] PCP - General 03/08/20
--- OUTSIDE RECORDS SUMMARY | 2024-11-12 15:50 | XMS_ITS | Encounter Summary ---
Author Organization [employer] Address [address] [place] [address] Care Team Providers Care Maintenance Planning Clerk Name Role Phone Pcp, No Primary Care Provider Unavailabl e Encounter Details Date Type Department Care Team ([facility] st Contact Info) Description 03/09/2020 Procedure [facility] [address] [place] [id number] Social History Tobacco Use Types Packs/Day Years Used Date Smoking Tobacco: Former Smokeless Tobacco: Never Alcohol Use Standard Drinks/Week Comments Not Currently 0 (1 standard drink = 0.6 oz pur e alcohol) Comments Unknown Sex and Gender Information Value Date Recorded Sex Assigned at Not on file Legal Sex Female 9:21 PM EDT Gender Identity Not on file Sexual Orientation Not on file documented as of this encounter Plan of Treatment Not on file documented as of this encounter Visit Diagnoses Not on filedocumented in this encounter Care Teams Maintenance Planning Clerk Relationship Specialty Start Date End Date Pcp, [place] [address] PCP - General 03/08/20 documented as of this encounter
--- OUTSIDE RECORDS SUMMARY | 2024-11-12 15:50 | XMS_ITS | Encounter Summary ---
Author Organization [employer] Address [address] [place] [address] Care Team Providers Care Sport Shoe Spike Assembler Name Role Phone Pcp, No Primary Care Provider Unavailabl e Encounter Details Date Type Department Care Team ([facility] st Contact Info) Description 03/09/2020 [facility] [address] [place] [id number] Social History Tobacco Use Types Packs/Day Years [...] on filedocumented in this encounter Care Teams Sport Shoe Spike Assembler Relationship Specialty Start Date End Date Pcp, No [place] [address] PCP - General 03/08/20 documented as of this encounter
--- OUTSIDE RECORDS SUMMARY | 2024-11-12 15:50 | XMS_ITS | Encounter Summary ---
Author Organization [employer] Address [address] [place] [address] Care Team Providers Care Merchandise Presentation Associate Name Role Phone Pcp, No Primary Care Provider Unavailabl e Encounter Details Date Type Department Care Team ([facility] st Contact Info) Description 03/09/2020 [facility] [address] [place] [id number] Social History Tobacco Use Types Packs/Day Years [...] on filedocumented in this encounter Care Teams Merchandise Presentation Associate Relationship Specialty Start Date End Date Pcp, No [place] [address] PCP - General 03/08/20 documented as of this encounter
--- OUTSIDE RECORDS SUMMARY | 2024-11-12 15:50 | XMS_ITS | Encounter Summary ---
Author Organization [facility] Address [address] [place] [address] Care Team Providers Care Sales Agent [employer] Name Role Phone Pcp, No Primary Care Provider Unavailabl e Encounter Details Date Type Department Care Team ([facility] st Contact Info) Description 03/08/2020 Procedure Pass [facility], Radiology (CT Scan) [address] [place] [address] Social History Tobacco Use Types Packs/Day Years Used Date Smoking Tobacco: Never Assessed Comments Unknown Sex and Gender Information Value Date Recorded Sex Assigned at Not on file Legal Sex Female 9:21 PM EDT Gender Identity Not on file Sexual Orientation Not on file documented as of this encounter Plan of Treatment Not on file documented as of this encounter Visit Diagnoses Not on filedocumented in this encounter Care Teams Sales Agent [employer] Insurance Relationship Specialty Start Date End Date Pcp, No [place] [address] PCP - General 03/08/20 documented as of this encounter
--- OUTSIDE RECORDS SUMMARY | 2024-11-12 15:50 | XMS_ITS | Clinical Summary ---
Author Organization [facility] Address [address] [place] [address] Care Team Providers Care Stunt Driver Name Role Phone Christine Gan MD Primary Care Provider Unavailabl e Social History Tobacco Use Types Packs/Day Years Used Date Smoking Tobacco: Never Assessed Sex and Gender Information Value Date Recorded Sex Assigned at Not on file Gender Identity Not on file Sexual Orientation Not on file Job Start Date Occupation Industry Not on file Not on file Not on file Plan of Treatment Health Maintenance Due Date Last Done Comments Depression Screening 1954 Preventative Health Evaluation 02/09/1960 Shingrix-Zoster Vaccine (1 of 2) 02/09/1992 Fall Risk Assessment 2007 Osteoporosis Screening (DEXA Scan) 2007 RSV Adult > 60+ Yrs or (1 - 1-dose 75+ series) 2017 COVID-19 Vaccine ( season) 2024 08/28/2020, 08/07/2020 Influenza Vaccine (#1) 2024 , 04/14/2018, 04/01/2017, Additional history exists DTap / Tdap / Td (2 - Td or Tdap) 05/25/2025 05/25/2015 Pneumococcal Vaccine Completed 01/14/2015, 02/15/2014, 06/06/2005 Hepatitis B Vaccines Aged Out No long er eligible based on patient's age to complete this topic RSV Ped < 20 months Aged Out No longe r eligible based on patient's age to complete this topic Care Teams Stunt Driver Relationship Specialty Start Date End Date Christine Gan MD PCP - General Internal Medicine 06/22/20
--- OUTSIDE RECORDS SUMMARY | 2024-11-12 15:50 | XMS_ITS | Encounter Summary ---
Author Organization [facility] Address [address] [place] [address] Care Team Providers Care Layout Worker Name Role Phone Pcp, No Primary Care Provider Unavailabl e Encounter Details Date Type Department Care Team ([facility] st Contact Info) Description 03/09/2020 Procedure Pass [facility], Radiology (CT Scan) [address] [place] [address] Social History Tobacco Use Types Packs/Day Years [...] on filedocumented in this encounter Care Teams Layout Worker Relationship Specialty Start Date End Date Pcp, No [place] [address] PCP - General 03/08/20 documented as of this encounter
--- OUTSIDE RECORDS SUMMARY | 2024-11-12 15:50 | XMS_ITS | Clinical Summary ---
Author Organization [address] Address [address] [place] [phone] Phone Care Team Providers Care Director Diversity Name Role Phone Ruba Quezada MD Primary Care Prov ider Allergies Active Allergy Reactions Criticality Noted Date Comments Codeine 06/23/2024 Morphine 06/23/2024 Pineapple 06/23/2024 Medications acetaminophen (TYLENOL) 500 mg tablet Take 1 tablet (500 mg total) by mouth every 8 (eight) hours if needed. 4 Active traMADoL (ULTRAM) 50 mg tablet Take 1 tablet (50 mg total) by mouth every 6 (six) hours if needed. 4 Active ibuprofen (ADVIL,MOTRIN) 800 mg tablet Take 1 tablet (800 mg total) by mouth every 8 (eight) hours if needed. 4 Active omeprazole (PriLOSEC) [address] capsule Take 1 capsule (20 mg total) by mouth 2 (two) times a day. 3 Active rosuvastatin (CRESTOR) 10 mg tablet Take 1 tablet (10 mg total) by mouth 1 (one) time each day. 3 Active predniSONE (DELTASONE) 1 mg tablet TAKE 2 TABLETS BY MOUTH EVERY DAY STRENGTH: 1 MG 3 Active hydroxychloroq uine (PLAQUENIL) 200 mg tablet Take 1.5 tablets (300 mg total) by mouth 1 (one) time each day. 3 Active cyanocobalamin (VITAMIN B-12) 1,000 mcg tablet Take 1 tablet (1,000 mcg total) by mouth. 8 Active cholecalcifero l (VITAMIN D-3) 25 mcg (1,000 unit) capsule Take by mouth 1 (one) time each day. Active aspirin 81 mg EC tablet Take by mouth. 8 Active metoprolol succinate (TOPROL-XL) 25 mg 24 hr tablet TAKE 1 TABLET BY MOUTH EVERY DAY 90 tablet 1 5 Active zolpidem (AMBIEN) 10 mg tablet TAKE 1 TABLET BY MOUTH AT BEDTIME NEEDED FOR SLEEP. MAX DAILY AMOUNT 10 MG 28 tablet 2 5 Active lisinopriL (PRINIVIL,ZEST RIL) 20 mg tablet TAKE 1 TABLET BY MOUTH EVERY DAY 90 tablet 1 5 Active levothyroxine (SYNTHROID, LEVOTHROID) 25 mcg tablet TAKE 1 TABLET BY MOUTH EVERY DAY 90 tablet 1 5 Active cephalexin (KEFLEX) 500 mg capsule Take 1 capsule (500 mg total) by mouth 2 (two) times a day for 7 days. 14 each 5 11/13/19 25 Active docusate sodium (COLACE) 100 mg capsule Take 1 capsule (100 mg total) by mouth 2 (two) times a day. 4 11/04/19 25 Discontinued polyethylene glycol (Miralax) 17 gram/dose oral powder Take 17 g by mouth. 4 11/04/19 25 Discontinued lisinopriL (PRINIVIL,ZEST RIL) 20 mg tablet TAKE 1 TABLET BY MOUTH EVERY DAY 90 tablet 1 4 10/28/19 25 Discontinued levothyroxine (SYNTHROID, LEVOTHROID) 25 mcg tablet TAKE 1 TABLET BY MOUTH EVERY DAY 90 tablet 1 4 10/28/19 25 Discontinued methenamine hippurate (HIPREX) 1 gram tabletIndicati ons:Recurrent UTI (urinary tract infection) TAKE 1 TABLET BY MOUTH 2 TIMES A DAY. 180 tablet 1 5 11/04/19 25 Discontinued Active Problems Problem Noted Date Diagnosed Date Osteopenia 06/23/2024 Rheumatoid arthritis (CMS/HCC V24, CMS/HCC V28) 06/23/2024 B12 deficiency 06/23/2024 Basal cell carcinoma (BCC) in situ of skin 06/23 Recurrent UTI 07/18/2023 Urinary retention 07/18/2023 COVID-19 virus infection 04/24/2023 Overview (09/24/2023): Coinfection with influenza A 04/24/2023 Ascending aorta dilatation ([facility] V24) 020 Overview (09/24/2023): 06/03 mild, 3.6 cm Osteoarthritis of lumbar spine 11/19/2019 Overview (09/24/2023): Underwent L3-4 and L4-5 decompressive surgery for spinal stenosis symptoms, July 2020 at [facility] CKD (chronic kidney disease) stage 3, GFR 30-59 ml/min ([facility] V24, [facility] V28) 07/09/2019 Coronary artery disease invo lving [place] coronary artery of [place] heart without angina pectoris 11/17/2018 Thoracic compression fracture ([facility] V24, [facility] V28) 02/28/2016 Microalbuminuria 12/08/2015 Reflux esophagitis 11/16/2014 Overview (09/24/2023): Approximate grade C reflux esophagitis at upper endoscopy 11/16/2014 while on treatment with omeprazole 20 mg once a day. Approximate grade C reflux esophagitis at upper endoscopy 11/16/2014 while on treatment with omeprazole 20 mg once a day. Hiatal hernia 11/16/2014 Overview (09/24/2023): 5 cm axial hiatal hernia without lesions at upper GI endoscopy 11/16/2014. 5 cm axial hiatal hernia without lesions at upper GI endoscopy 11/16/2014. 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 ([facility] V24, [facility] V28) 12/23/2006 Overview (09/24/2023): 12/19 borderline pos OGTT (153, A1c 6.1), neg eye exam Dr Arnold 06/22 12/19 borderline pos OGTT (153, A1c 6.1), neg eye exam Dr Arnold 06/22 Syncope 09/15/2005 Overview (09/24/2023): 2004--eval neg (vasovagal) 07/20--clearly vasovagal 03/20--taken off hydrochlorothiazide 2004--eval neg (vasovagal) 07/20--clearly vasovagal 03/20--taken off hydrochlorothiazide Chest pain 09/15/2005 Overview (09/24/2023): Stress test 2003 mild abn--Heart catheterization 11/15 no significant disease, EF 60% Malignant neoplasm of female breast ([facility] V24, [facility] V28) 09/15/2005 Overview (09/24/2023): Mastectomy left 1980, reconstruction 1984, IMO update Mastectomy left 1980, reconstruction 1984, IMO update Localized osteoarthrosis, lower leg 06/28/2005 Overview (09/24/2023): IMO update IMO update Hypertension 06/06/2005 Hypothyroidism 06/06/2005 Hypercholesterolemia 08/17/2004 Hematuria 12/18/2001 Overview (09/24/2023): Chronic mild hematuria x yrs, eval neg--also microalbuminuria 12/19--lisinopril. Previous cystoscopy. Neg ultrasound 02/19 Chronic mild hematuria x yrs, eval neg--also microalbuminuria 12/19--lisinopril. Previous cystoscopy. Neg ultrasound 02/19 Esophageal reflux 10/03/2000 Encounters Date Type Department Care Team Description 11/03/2024 2:45 PM EDT Office Visit Urogynecology [address] [phone] Mary Carmen Cleaning MD Urinary urgency (Primary Dx); Hematuria, unspecified type; Nocturia; Urinary frequency; History of recurrent UTIs; ML (stress urinary incontinence, female) 11/02/2024 Telephone Urogynecology [address] [phone] Mary Carmen Cleaning MD Referral 10/30/2024 Telephone Urogynecology - [address] [place] [address] Mary Carmen Cleaning MD UTI Symptoms 09/23/2024 Telephone Adult Medicine [facility] [address] [place] [phone] Ruba Lange MD information needed 09/21/2024 2:30 PM EDT Office Visit [address] [phone] Becka Leach PA Type II diabetes mellitus with nephropathy ([facility] V24, [facility] V28) (Primary Dx); Basal cell carcinoma (BCC) in situ of skin; B12 deficiency; Rheumatoid arthritis, involving unspecified site, unspecified whether rheumatoid factor present ([facility] V24, [facility] V28); Osteopenia, unspecified location; Gastroesophageal reflux disease, unspecified whether esophagitis present; Hypothyroidism, unspecified type; Hypertension, unspecified type; Recurrent UTI; Microalbuminuria; Insomnia, unspecified type; Coronary artery disease involving [place] coronary artery of [place] heart without angina pectoris; Stage 3 chronic kidney disease, unspecified whether stage 3a or 3b CKD ([facility] V24, [facility] V28); Hypercholesterolemia; Rheumatoid arthritis involving shoulder with positive rheumatoid factor, unspecified laterality ([facility] V24, [facility] V28) 09/10/2024 Telephone Urogynecology [address] [place] [address] Mary Carmen Cleaning MD UTI Symptoms; Results 09/08/2024 Telephone [facility] [address] [place] [address] Lakeisha Rodriguez LPN Drug / Alcohol Assessment from Last 3 Months Surgical History Surgery Date Site/Laterality Comments MASTECTOMY 1980 PROCEDURE: HISTORICAL MASTECTOMY; COMMENT: left BREAST RECONSTRUCTION 1984 PROCEDURE: BREAST RECONSTRUCTION TONSILLECTOMY PROCEDURE: HISTORICAL TONSILLECTOMY ROTATOR CUFF REPAIR 2003 PROCEDURE: HISTORICAL ROTATOR CUFF REPAIR; COMMENT: left CARDIAC CATHETERIZATION 11/15 PROCEDURE: HISTORICAL CARDIAC CATH COLONOSCOPY 09/17 PROCEDURE: HISTORICAL COLONOSCOPY; COMMENT: neg, sigmoid diverticuli, Dr Montoya CATARACT EXTRACTION 2004, 2010 PROCEDURE: HISTORICAL CATARACT REMOVAL; COMMENT: left, right ESOPHAGOGASTRODUODENOSCOPY 11/16/2014 PROCEDURE: IN ESOPHAGOGASTRODUODENOSCOPY TRANSORAL DIAGNOSTIC; COMMENT: approx grade C reflux esophagitis; 5 cm HH. CARDIAC CATHETERIZATION 09/13/16 PROCEDURE: HISTORICAL CARDIAC CATH; COMMENT: Distal RCA 30%, minimal LAD irregularities, EF 60% LUMBAR LAMINECTOMY 07/29/2020 PROCEDURE: HISTORICAL LUMB LAMINECTOMY; COMMENT: L3-4,L4-5, Dr. Alberto Medical History Medical History Date Comments Essential hypertension, benign 06/06/05 D X:Essential hypertension, benign Unspecified hypothyroidism 06/06/05 DX:Un specified hypothyroidism Need for prophylactic vaccin ation and inoculation against influenza 06/06/05 DX:Need for prophylactic vaccination and inoculation against influenza Need for prophylactic vaccin ation against Streptococcus pneumoniae (pneumococcus) 06/06/05 DX:Need for prophylactic vac cination against Streptococcus pneumoniae (pneumococcus) Syncope and collapse 12/24/04 DX:Syncope and collapse Other specified disease of w ángel blood cells 12/24/04 DX:Other specified disease o f white blood cells Pure hypercholesterolemia 08/17/04 DX:Pur e hypercholesterolemia Other dyspnea and respirator y abnormality 10/13/03 DX:Other dyspnea and respira tory abnormality Displacement of lumbar inter vertebral disc without myelopathy 09/26/03 DX:Displacement of lumbar intervertebral disc without myelopathy Rotator cuff (capsule) sprain 06/29/03 DX :Rotator cuff (capsule) sprain Hematuria 12/18/01 DX:Hematuria Urinary tract infection, sit e not specified 11/26/01 DX:Urinary tract infection, site not specified Epistaxis 09/03/01 DX:Epistaxis Esophageal reflux 10/03/00 DX:Esophageal reflux Other tenosynovitis of hand and wrist 08/30/98 DX:Other tenosynovitis of hand and wrist Localized osteoarthrosis not specified whether primary or secondary, lower leg DX:Localized osteoarthrosis not specified whether primary or secondary, lower leg Personal history of malignan t neoplasm of breast DX:Personal history of malig nant neoplasm of breast Reflux esophagitis 11/16/2014 DX:Reflux eso phagitis; COMMENT: Approximate grade C reflux esophagitis at upper endoscopy 11/16/2014, not on PPI treatment. Hiatal hernia 11/16/2014 DX:Hiatal hernia ; COMMENT: 5 cm axial hiatal hernia without lesions at upper GI endoscopy 11/16/2014. Menopause 04/18/2011 DX:Menopause; CO MMENT: Nl bone density 04/2011 Plantar fascial fibromatosis 12/16/2006 DX: Plantar fascial fibromatosis Post-menopausal bleeding 06/14/2011 DX:Post -menopausal bleeding Situational insomnia 12/29/2015 DX:Situatio nal insomnia Osteoarthritis of lumbar spine 11/19/2019 D X:Osteoarthritis of lumbar spine Ascending aorta dilatation ( CMS/HCC V24) 06/20/2020 DX:Ascending aorta dilatatio n ([facility]); COMMENT: 06/03 mild, 3.6 cm Family History Medical History Relation Name Comments Diabetes Father Hypertension Mother Relation Name Status Comments Brother Alive Bypass Father (Age 83) Maternal Grandfather Maternal Grandmother Mother (Age 75) Paternal Grandfather Paternal Grandmother Sister 1 Alive Sister 2 Alive Son 1 Alive Son 2 Alive Son 3 Alive Social History Tobacco Use Types Packs/Day Years Used Date Smoking Tobacco: Former Cigarettes 0.5 17.4 0 1963 - 07/15/1980 Smokeless Tobacco: Never Tobacco Cessation:Counseling Given: No Alcohol Use Standard Drinks/Week Comments Yes 0 (1 standard drink = 0.6 oz pur e alcohol) Comments No Sex and Gender Information Value Date Recorded Sex Assigned at Not on file Legal Sex Female 11:01 PM EST Gender Identity Not on file Sexual Orientation Not on file Obstetrics History Last Filed Vital Signs Vital Sign Reading Time Taken Comments Blood Pressure 144/94 11/03/2024 2:37 PM EDT Pulse 86 11/03/2024 2:37 PM EDT Temperature 36.2 ??C (97.2 ??F) 09/21/2024 2:31 PM ED T Respiratory Rate 14 06/24/2024 10:36 AM EST Oxygen Saturation - - Inhaled Oxygen Concentration - - Weight 64.9 kg (143 lb) 11/03/2024 2:37 PM EDT Height 165.1 cm (5' 5 ) 11/03/2024 2:37 PM EDT Body Mass Index 23.8 11/03/2024 2:37 PM EDT Plan of Treatment Upcoming Encounters Date Type Department Care Team (Late st Contact Info) Description 12/24/2024 1:15 PM EDT Office Visit Adult Medicine [facility] [address] [place] [phone] Becka Leach PA [address] [place] [address] Health Maintenance Due Date Last Done Comments Diabetes: Annual Foot Exam 02[birth year]09/1950 Diabetes: Annual Retina Eye Exam 02[birth year]09/1950 IPV Vaccines (2 of 3 - Adult catch-up series) 09/11/2004 08/14/2004 RSV Immunization Adult Patients (1 - 1-dose 75+ series) 2017 Zoster Vaccines (2 of 2) 06/09/2020 020, 11/07/2010, 07/15/2010 Colorectal Cancer Screening: Stool Based Tests (FOBT/FIT) 06/17/2022 Depression Screening 06/17/2022 Falls Risk Assessment 06/17/2022 Medicare Annual Wellness Visit 06/17/2022 Osteoporosis Screening (Bone Density Screening) 06/17/2022 Social Influencers of Health Screening 06/17/2022 COVID-19 Vaccine ( season) 2024 04/28/2021, 08/28/2020, 08/07/2020 Diabetes: Blood Sugar Control Test (HGBA1C) 03/24/2025 09/21/2024, 06/25/2024, 01/21/2024, Additional history exists DTaP,Tdap,and Td Vaccines (2 - Td or Tdap) 05/25/2025 05/25/2015 Diabetes: Annual GFR (Glomerular Filtration Rate) 06/25/2025 06/25/2024, 03/24/2024, 02/20/2024, Additional history exists Hypertension/CHF/CAD Annual BMP Blood Test 06/25/2025 06/25/2024, 03/24/2024, 02/20/2024, Additional history exists Diabetes: Annual Urine Albumin-Creatinine Ratio (uACR) 07/21/2025 07/21/2024 Cholesterol Screening (Lipid Panel) 06/25/2029 06/25/2024, 07/18/2023 Hepatitis A Vaccines Aged Out 08/14/2004 No long er eligible based on patient's age to complete this topic Pneumococcal Vaccine: 50+ Years Completed 04/14/2018, 01/14/2015, 02/15/2014, Additional history exists Influenza Vaccine Completed 03/24/2024, , 05/16/2022, Additional history exists HIB Vaccines Aged Out No longer eligi ble based on patient's age to complete this topic HPV Vaccines Aged Out No longer eligi ble based on patient's age to complete this topic Hepatitis B Vaccines Aged Out No long er eligible based on patient's age to complete this topic MMR Vaccines Aged Out No longer eligi ble based on patient's age to complete this topic Meningococcal ACWY Vaccine Aged Out N o longer eligible based on patient's age to complete this topic Meningococcal B Vaccine Aged Out No l onger eligible based on patient's age to complete this topic RSV Immunization Patients Under 20 months Aged Out No longer eligible based on patient's age to complete this topic Varicella Vaccines Aged Out No longer eligible based on patient's age to complete this topic Procedures Procedure Name Priority Date/Time Associated Diagnosis Comments URINALYSIS MICROSCOPIC ONLY Routine 11/03/2024 3:13 PM EDT Hematuria, unspecified type URINALYSIS MICROSCOPIC ONLY Routine 11/03/2024 3:13 PM EDT Hematuria, unspecified type CULTURE URINE Routine 11/03/2024 3:13 PM EDT Hematuria, unspecified type Nocturia Urinary urgency Urinary frequency POC URINE AUTO W/O MICRO Routine 11/03/2024 3:11 PM EDT Nocturia Urinary urgency Urinary frequency HEMOGLOBIN A1C Routine 09/21/2024 3:17 PM EDT Type II diabetes mellitus with nephropathy ([facility] V24, [facility] V28) CULTURE URINE Routine 09/11/2024 12:26 PM EST Dysuria DRUG ABUSE SCREEN EXPANDED WITH REFLEX CONFIRMATION, URINE Routine 09/09/2024 3:52 PM EST Encounter for long-term (current) drug use MICROALBUMIN CREATININE URINE RATIO Routine 07/21/2024 1:29 PM EST Microalbuminuria COMPREHENSIVE METABOLIC PANEL Routine 06/25/2024 11:51 AM EST Stage 3 chronic kidney disease, unspecified whether stage 3a or 3b CKD ([facility] V24, [facility] V28) LIPID PANEL WITH REFLEX TO DIRECT LDL Routine 06/25/2024 11:51 AM EST Hypercholesterolemi a from Last 3 Months or Most Recently Relevant to Health Maintenance Results * (ABNORMAL) Urinalysis microscopic only (11/03/2024 3:13 PM EDT) RBC, Urine 9.2(H) 0 - 4 /HPF LAB URINALYSIS - AUTOMATED METHOD 11/03/2024 7:58 PM EDT [facility] WBC, Urine 90.9(H) 0 - 4 /HPF LAB URINALYSIS - AUTOMATED METHOD 11/03/2024 7:58 PM EDT [facility] Squamous Epithelial, Urine 9 0 - 60 /LPF LAB URINALYSIS - AUTOMATED METHOD 11/03/2024 7:58 PM EDT [facility] Bacteria, Urine Moderate( A) Negative /HPF LAB URINALYSIS - AUTOMATED METHOD 11/03/2024 7:58 PM EDT [facility] Hyaline Casts, Urine 0.8 0 - 3 /LPF LAB URINALYSIS - AUTOMATED METHOD 11/03/2024 7:58 PM EDT [facility] Urine Urine specimen obtained by clean catch procedure / Unknown Non-blood Collection / Unknown 11/03/2024 3:13 PM EDT 11/03/2024 3:13 PM EDT us Mary Carmen Cleaning MD LAB URINE ORDERABLES Final Resul t [facility] [address] [place] [address], * (ABNORMAL) Culture urine (11/03/2024 3:13 PM EDT) Only the most recent of2 resultswithin the time period is included. Culture, Urine >100,000 CFU/mL Escherichia coli(A) SAUL 11/05/2024 10:01 AM EDT [facility] Urine Urinary bladder structure / Unknown Non-blood Collection / Unknown 11/03/2024 3:13 PM EDT 11/03/2024 3:13 PM EDT Narrative Organism Antibiotic Method Susceptibility Escherichia coli Amoxicillin/Clavulanate SAUL 16 ug/ml: Intermediate Escherichia coli Ampicillin/Sulbactam SAUL >=32 ug/ml: Resistant Escherichia coli Piperacillin/Tazobactam SAUL <=4 ug/ml: Susceptible Escherichia coli Cefazolin (Urine) SAUL 8 ug/ml: Susceptible Escherichia coli Cefoxitin SAUL <=4 ug/ml: Susceptible Escherichia coli Ceftazidime SAUL <=0.5 ug/ml: Susceptible Escherichia coli Ceftriaxone SAUL <=0.25 ug/ml: Susceptible Escherichia coli Cefepime SAUL <=0.12 ug/ml: Susceptible Escherichia coli Meropenem SAUL <=0.25 ug/ml: Susceptible Escherichia coli Amikacin SAUL 2 ug/ml: Susceptible Escherichia coli Gentamicin SAUL <=1 ug/ml: Susceptible Escherichia coli Ciprofloxacin SAUL <=0.06 ug/ml: Susceptible Escherichia coli Levofloxacin SAUL <=0.12 ug/ml: Susceptible Escherichia coli Nitrofurantoin SAUL 32 ug/ml: Susceptible Escherichia coli Trimethoprim/Sulfamethoxazole SAUL <=20 ug/ml: Susceptible Mary Carmen Cleaning MD LAB MICROBIOLOGY - GENERAL ORDER SHIRLENE Final Result [facility] [address] [place] [address], [place] [phone] * (ABNORMAL) POC Urine Auto W/O Micro (11/03/2024 3:11 PM EDT) Glucose UA POC Negative Negative, Trace mg/dL Bilirubin UA POC Negative Negative, Small Ketones UA POC Negative Negative, Trace Specific [place] UA POC >=1.030 Blood UA POC 3+(A) Negative, Large PH UA POC 5.5 Protein UA POC 30(A) Negative, >=300 mg/dL Urobilinogen UA POC 0.2 E.U./dL mg/dL Nitrite UA POC Negative Negative Leukocytes UA POC 2+(A) Negative Urine Urine specimen obtained by clean catch procedure / Unknown 11/03/2024 3:11 PM EDT Mary Carmen Cleaning MD POINT OF CARE TEST ENTER/EDIT OR DERABLES Final Result * Hemoglobin A1c (09/21/2024 3:17 PM EDT) Hemoglobin A1C 6.1 <6.5 % LAB CHEMISTRY METHOD 09/21/2024 9:45 PM EDT [facility] Mean Bld Glu Estim. 128 mg/dL LAB CHEMISTRY METHOD 09/21/2024 9:45 PM EDT [facility] Blood Venous blood specimen / Unknown Venipuncture / Unknown 09/21/2024 3:17 PM EDT 09/21/2024 3:18 PM EDT Becka PRESLEY LAB BLOOD ORDERABLES Final Result [facility] [address] [place] [address], * Drug abuse screen expanded with reflex confirmation, urine (09/09/2024 3:52 PM EST) Pathologist [facility] Amphetamine Screen, Ur Negative Negative LAB CHEMISTRY METHOD 09/09/2024 6:26 PM EST [facility] Comment:Certain OTC medicati ons containing ephedrine, phenylephrine, pseudoephedrine and phenylpropanolamine can cause false positive results. Barbiturate Screen, Ur Negative Negative LAB CHEMISTRY METHOD 09/09/2024 6:26 PM EST [facility] Benzodiazepine Screen, Ur Negative Negative LAB CHEMISTRY METHOD 09/09/2024 6:26 PM EST [facility] Cocaine Screen, Ur Negative Negative LAB CHEMISTRY METHOD 09/09/2024 6:26 PM EST [facility] Opiate Screen, Ur Negative Negative LAB CHEMISTRY METHOD 09/09/2024 6:[address] [facility] Cannabinoid (THC) Screen, Ur Negative Negative LAB CHEMISTRY METHOD 09/09/2024 6:[address] [facility] Comment:Specimens from patie nts taking pantoprazole sodium (Protonix) have been shown to produce false positive results. Fentanyl, Ur Negative Negative LAB CHEMISTRY METHOD 09/09/2024 6:26 PM EST [facility] Oxycodone Screen, Ur Negative Negative LAB CHEMISTRY METHOD 09/09/2024 6:26 PM EST [facility] Urine Urine specimen obtained by clean catch procedure / Unknown Non-blood Collection / Unknown 09/09/2024 3:52 PM EST 09/09/2024 3:52 PM EST Narrative [facility] - 09/09/2024 6:26 PM EST Assay cutoffs: Amphetamines ? 1000 ng/mL Barbiturates ?200 ng/mL Benzodiazepines ?? 200 ng/mL Cocaine ? 300 ng/mL Fentanyl ?1 ng/mL Opiates ? 300 ng/mL Oxycodone ? 100 ng/mL THC ?50 ng/mL Semi-quantitative assay for screening purposes only. Unconfirmed screening result should not be used for non-medical purposes. *POSITIVE RESULTS ARE AUTOMATICALLY SENT FOR ALTERNATE METHOD CONFIRMATION* Becka PRESLEY LAB URINE ORDERABLES Final Result [facility] [address] [place] [address], * (ABNORMAL) Microalbumin creatinine urine ratio (07/21/2024 1:29 PM EST) Creatinine, Urine 76.0 mg/dL LAB CHEMISTRY METHOD 07/21/2024 5:15 PM EST [facility] Microalb, Ur 136.0(H) 0.0 - 29.0 mg/L LAB CHEMISTRY METHOD 07/21/2024 5:15 PM EST [facility] Microalb/Crea t Ratio 179(H) <30 mg/g creat LAB CHEMISTRY METHOD 07/21/2024 5:15 PM EST [facility] Urine Urine specimen from urethra / Unknown Non-blood Collection / Unknown 07/21/2024 1:29 PM EST 07/21/2024 1:29 PM EST us Becka PRESLEY LAB URINE ORDERABLES Final Result [facility] [address] [place] [address], [place] [phone] * Lipid panel with reflex to direct LDL (06/25/2024 11:51 AM EST) Cholesterol 148 0 - 200 mg/dL LAB CHEMISTRY METHOD 06/25/2024 3:36 PM EST [facility] Triglycerides 87 0 - 150 mg/dL LAB CHEMISTRY METHOD 06/25/2024 3:[address] [facility] HDL 73 >=40 mg/dL LAB CHEMISTRY METHOD 06/25/2024 3:[address] [facility] LDL Calculated 58 0 - 100 mg/dL LAB CHEMISTRY METHOD 06/25/2024 3:[address] [facility] VLDL Cholesterol Cruz 17.4 mg/dL LAB CHEMISTRY METHOD 06/25/2024 3:[address] [facility] Non HDL Chol. (LDL+VLDL) 75 <145 mg/dL LAB CHEMISTRY METHOD 06/25/2024 3:36 PM EST [facility] Chol/HDL Ratio 2.0 0.0 - 4.4 LAB CHEMISTRY METHOD 06/25/2024 3:[address] [facility] Blood Venous blood specimen / Unknown Venipuncture / Unknown 06/25/2024 11:51 AM EST 06/25/2024 11:51 AM EST us Becka PRESLEY LAB BLOOD ORDERABLES Final Result [facility] [address] [place] [address], [place] [phone] * (ABNORMAL) Comprehensive metabolic panel (06/25/2024 11:51 AM EST) Sodium 139 133 - 145 mmol/L LAB CHEMISTRY METHOD 06/25/2024 3:36 PM EST [facility] Potassium 4.7 3.5 - 5.5 mmol/L LAB CHEMISTRY METHOD 06/25/2024 3:36 [address] [facility] Chloride 110 96 - 110 mmol/L LAB CHEMISTRY METHOD 06/25/2024 3:36 PM EST [facility] CO2 21 21 - 32 mmol/L LAB CHEMISTRY METHOD 06/25/2024 3:[address] [facility] Anion Gap 8 3 - 11 LAB CHEMISTRY METHOD 06/25/2024 3:[address] [facility] Glucose 113(H) 70 - 100 mg/dL LAB CHEMISTRY METHOD 06/25/2024 3:[address] [facility] BUN 22 5 - 25 mg/dL LAB CHEMISTRY METHOD 06/25/2024 3:[address] [facility] Creatinine 1.23(H) 0.50 - 1.10 mg/dL LAB CHEMISTRY METHOD 06/25/2024 3:36 PM EST [facility] eGFR 44(L) >=60 mL/min/1. 73m2 LAB CHEMISTRY METHOD 06/25/2024 3:[address] [facility] Comment:Calculation based on the??Chronic Kidney Disease Epidemiology Collaboration (CKD-EPI) equation refit??without adjustment for race. BUN/Creatinine Ratio 17.9 LAB CHEMISTRY METHOD 06/25/2024 3:[address] [facility] Calcium 9.3 8.5 - 10.5 mg/dL LAB CHEMISTRY METHOD 06/25/2024 3:[address] [facility] AST (SGOT) 12 10 - 42 unit/L LAB CHEMISTRY METHOD 06/25/2024 3:36 PM EST [facility] ALT (SGPT) 16 10 - 60 unit/L LAB CHEMISTRY METHOD 06/25/2024 3:[address] [facility] Alkaline Phosphatase 81 42 - 121 unit/L LAB CHEMISTRY METHOD 06/25/2024 3:[address] [facility] Total Protein 6.4 6.0 - 8.0 g/dL LAB CHEMISTRY METHOD 06/25/2024 3:36 PM EST [facility] Albumin 3.7 3.2 - 5.0 g/dL LAB CHEMISTRY METHOD 06/25/2024 3:[address] [facility] Total Bilirubin 0.4 0.0 - 1.4 mg/dL LAB CHEMISTRY METHOD 06/25/2024 3:[address] [facility] Blood Venous blood specimen / Unknown Venipuncture / Unknown 06/25/2024 11:51 AM EST 06/25/2024 11:51 AM EST us Becka PRESLEY LAB BLOOD ORDERABLES Final Result [facility] [address] [place] [address], from Last 3 Months or Most Recently Relevant to Health Maintenance Insurance [employer] Advance Directives Documents on File Type Date Recorded Patient Helicopter Pilot Expl anation Health Care Decision (hx) 08/05/2020 AD RIVERA DIRECTIVE Health Care Decision (hx) 08/05/2020 AD RIVERA DIRECTIVE Health Care Decision (hx) 08/04/2020 AD RIVERA DIRECTIVE Health Care Decision (hx) 08/04/2020 AD RIVERA DIRECTIVE Health Care Decision (hx) 08/04/2020 AD RIVERA DIRECTIVE Health Care Decision (hx) 08/04/2020 AD RIVERA DIRECTIVE Health Care Decision (hx) 08/04/2020 AD RIVERA DIRECTIVE Health Care Decision (hx) 08/04/2020 AD RIVERA DIRECTIVE Health Care Decision (hx) 08/04/2020 AD RIVERA DIRECTIVE Care Teams Director Diversity Relationship Specialty Start Date End Date Ruba Quezada MD [address] [place] [address] PCP - General Internal Medicine 06/21/24
--- OUTSIDE RECORDS SUMMARY | 2024-11-12 15:50 | XMS_ITS ---
Author Organization [facility] Care Team Providers Care Production Controller Name Role Phone Joshua Headley Unavailable Unavailable Italia Quiroz Unavailable Unavailable Allergies and adverse reactions Code CodeSystem Substance Reaction Severity StartDate Concern Status Pineapple Nausea (code- 642042426, SNOMED CT) Moderate 02/13/2021 active Morphine and Related Nausea (code- 635088334, SNOMED CT) Moderate 02/13/2021 active 3443 RXNORM Diltiazem Disorder of immune function (code- 583682082, SNOMED CT) Moderate 02/13/2021 active 2670 RXNORM Codeine Nausea (code- 716393901, SNOMED CT) Moderate 02/13/2021 active Care Team Name Role Address Phone Organization Dates Joshua Headley PCP [address] [facility] [address], [place], [address], [place] (Office): : [facility] 02/13/2021 - 02/23/2021 Italia Quiroz Attending Physician [address] [facility] [address], [place], [address], [place] (Office): [facility] 02/13/2021 - 02/23/2021 Immunizations Immunization Status Vaccine Details Vaccine Code CodeSystem Date Notes Influenza completed Influenza, split virus, trivalent, injectable, contains preservative 141 CVX created date: 02/15/2021 administere d date: 04/14/2020 TB 2 Step Mantoux Skin Test completed tuberculin skin test; unspecified formulation lotNumber: [id number] expiry: 03/15/2022 Mfg: PAR pharmaceical Given 0.1 Right Forearm intradermally Step 1 of Multi-step with next step required 98 CVX created date: 02/15/2021 consent date: 02/15/2021 administere d date: 02/14/2021 PPSV23 (Previous Pneumococcal Polysaccharide)Va ccine completed pneumococcal polysaccharide vaccine, 23 valent 33 CVX created date: 02/15/2021 administere d date: 04/14/2018 Mental Status Section Date Assessment Total Score Description 02/23/2021 BIMS 10 moderate cognit cher impairment CAM 0 No delirium ind icated PHQ-9 02 minimal depress ion 02/19/2021 BIMS 10 moderate cognit cher impairment CAM 0 No delirium ind icated PHQ-9 02 minimal depress ion Problems Problem # Description Date of onset Resolved Date Code CodeSystem Concern Status 1 CANDIDAL CHEILITIS 02/16/[address] active 2 HYPERLIPIDEMIA, UNSPECIFIED 02/16/[address] active 3 HYPOTHYROIDISM, UNSPECIFIED 02/16/[address] active 4 INSOMNIA, UNSPECIFIED 02/16/[address] active 5 ORAL MUCOSITIS (ULCERATIVE), UNSPECIFIED 02/16/[address] active 6 RHEUMATOID ARTHRITIS, UNSPECIFIED 02/16/[address] active 7 ATHEROSCLEROTIC HEART DISEASE OF [place] CORONARY ARTERY WITHOUT ANGINA PECTORIS 02/15/[address] active 8 ESSENTIAL (PRIMARY) HYPERTENSION 02/15/[address] active 9 ADULT FAILURE TO THRIVE 02/14/[address] active 10 DIFFICULTY IN WALKING, NOT ELSEWHERE CLASSIFIED 02/14/[address] active 11 GASTRO-ESOPHAGEAL REFLUX DISEASE WITHOUT ESOPHAGITIS 02/14/[address] active 12 MUSCLE WASTING AND ATROPHY, NOT ELSEWHERE CLASSIFIED, LEFT LOWER LEG 02/14/[address] active 13 MUSCLE WASTING AND ATROPHY, NOT ELSEWHERE CLASSIFIED, MULTIPLE SITES 02/14/[address] active 14 MUSCLE WASTING AND ATROPHY, NOT ELSEWHERE CLASSIFIED, RIGHT UPPER ARM 02/14/[address] active 15 OTHER MALAISE 02/14/[address] active 16 TYPE 2 DIABETES MELLITUS WITHOUT COMPLICATIONS 02/14/[address] active 17 UNSPECIFIED OSTEOARTHRITIS, UNSPECIFIED SITE 02/14/[address] active Reason for Referral No Reasons for Referral Entered Social History Social History Observation Description Start Date End Date Code Code System Current Smoking Status Tobacco smoking consumption unknown 185333192 SNOMED CT Sex Assigned At Female 1940 82845-2 [facility] Vital Signs Code Code System Vitals Name Values and Units Timing Information 9279-1 [facility] Respiratory Rate Value=18.0 Units=/m in 02/23/2021 8310-5 [facility] Body Temperature Value=97.2 Units=?? F 02/23/2021 33560-1 [facility] O2 % BldC Oximetry Value=96.0 Units= % 02/23/2021 04930-7 [facility] Pain Level Value=0.0 02/23/2021 8462-4 [facility] Blood Pressure-Diastolic Value=74 Un its=mmHg 02/17/2021 8480-6 [facility] Blood Pressure-Systolic Kmiwr=469 Un its=mmHg 02/17/2021 8867-4 [facility] Heart rate Value=64.0 Units=/min 12/2020 2339-0 [facility] Blood Sugar Lxzwu=727.0 Units=mg/dL 02/14/2021 8302-2 [facility] Height Value=57.0 Units=Inches 02/13/2021 35709-3 [facility] Weight Twywf=534.0 Units=Lbs 08/2020
--- OUTSIDE RECORDS SUMMARY | 2024-11-12 15:50 | XMS_ITS | Encounter Summary ---
Author Organization [facility] Address [address] [place] [address] Care Team Providers Care Animal Herder Name Role Phone Ruba Quezada MD Primary Care Prov ider Reason for Referral * Consultation (Routine) - Closed Specialty Diagnoses / Procedures Referred By Contac t Referred To Contact Urogynecology Diagnoses Leukoderma Ruba Kidd MD [address] [place] [address] Phone: tel: fax: Urogynecology [address] [address] Phone: tel: fax: Referral ID Status Reason Start Date Expiration Date V isits Requested Visits Authorized [id number] Closed Specialty Services Required 11/02/2024 11/02/2025 1 1 Scheduling Instructions Ask the patient WHO referred them to this specialty: Not an initial visit; it is for follow up/continuation of care. Patients PCP is RUBA AMAYA FIRST and LAST NAME of SPECIALIST PATIENT is seeing: [facility] What specialty is this? UROGYNOCOLOGY DIAGNOSIS Patient is being seen for (Not a body part or a procedure): Ask the patient WHO referred them to this specialty: Not an initial visit; it is for follow up/continuation of care. Patients PCP is RUBA AMAYA FIRST and LAST NAME of SPECIALIST PATIENT is seeing: [facility] What specialty is this? UROGYNOCOLOGY DIAGNOSIS Patient is being seen for (Not a body part or a procedure): LEUKODERMA Have you seen this SPECIALIST for this PROBLEM/DX before? If YES, when? Yes. 06/24/2024 Have you checked REVIEW or the APPT DESK to see if this referral has already been done or has visits left? yes Is this visit: Follow Up Address of Specialist: [address] [place] [address] Phone # of Specialist: [phone] Fax #: (if applicable): [phone] Have you seen this SPECIALIST for this PROBLEM/DX before? If YES, when? Yes. 06/24/2024 Have you checked REVIEW or the APPT DESK to see if this referral has already been done or has visits left? yes Is this visit: Follow Up Address of Specialist: [address] [place] [address] Phone # of Specialist: [phone] Fax #: (if applicable): [phone] Reason for Visit * Reason Onset Date Comments Referral 11/02/2024 Encounter Details Date Type Department Care Team (Late st Contact Info) Description 11/02/2024 Telephone Urogynecology - [address] [phone] Allie Cleaning MD [address] [place] [address] Referral Social History Tobacco Use Types Packs/Day Years Used Date Smoking Tobacco: Former Cigarettes 0.5 17.4 0 1961 - 07/15/1980 Smokeless Tobacco: Never Alcohol Use Standard Drinks/Week Comments Yes 0 (1 standard drink = 0.6 oz pur e alcohol) Comments No Sex and Gender Information Value Date Recorded Sex Assigned at Not on file Legal Sex Female 11:01 PM EST Gender Identity Not on file Sexual Orientation Not on file documented as of this encounter Progress Notes * Nenita Monte - 11/02/2024 1:40 PM EDT Referral Request: What insurance does the patient have today? [employer] Referrals cannot be processed if the insurance is not accurate. If the insurance listed above in red is NO BILLING INFORMATION FOUND FOR THIS ENCOUTNER The patients correct insurance must be obtained and registered in [facility] or their referral can not be processed. Who is calling to request this referral? RUBA AMAYA If the caller is not the patient, what is their name? not applicable Ask the patient WHO referred them to this specialty: Not an initial visit; it is for follow up/continuation of care. Patients PCP is RUBA AMAYA FIRST and LAST NAME of SPECIALIST PATIENT is seeing: [facility] What specialty is this? UROGYNOCOLOGY DIAGNOSIS Patient is being seen for (Not a body part or a procedure): LEUKODERMA Have you seen this SPECIALIST for this PROBLEM/DX before? If YES, when? Yes. 06/24/2024 Have you checked REVIEW or the APPT DESK to see if this referral has already been done or has visits left? yes Is this visit: Follow Up Address of Specialist: [address] [place] [address] Phone # of Specialist: [phone] Fax #: (if applicable): [phone] Does patient have an appointment scheduled?: yes Date of appointment- (including a retro-request): 11/03/24 Is this appointment related to: N/A documented in this encounter Plan of Treatment Upcoming Encounters Date Type Department Care Team (Late st Contact Info) Description 12/24/2024 1:15 PM EDT Office Visit Adult Medicine [facility] [address] [place] [address] Becka Leach PA [address] [place] [address] Scheduled Referrals Name Type Priority Associated Diagnoses Order Schedule Ambulatory referral to Urogynecology Outpatient Referral Routine Leukoderma estivale 1 Occurrences starting 11/02/2024 until 11/02/2025 documented as of this encounter Visit Diagnoses Diagnosis Leukoderma estivale- Primary documented in this encounter Care Teams Animal Herder Relationship Specialty Start Date End Date Ruba Quezada MD [address] [place] [address] PCP - General Internal Medicine 06/21/24 documented as of this encounter
[2024-11-12 17:47] LABS: MANUAL DIFF FLAG NO
[2024-11-12 17:59] LABS: Basophils Percent Auto 0.5 % (0-2); Eosinophils Absolute Auto 0.4 X10*3/uL (0.0-0.4); Eosinophils Percent Auto 4.4 % (0-4); Hematocrit 30.5 % (37.0-47.0); Hemoglobin 9.4 g/dl (12.0-16.0); Imm Gran Abs Auto 0.09 X10*3/uL (0.00-0.03); Imm Gran Pct Auto 1.1 % (0.0-0.4); Lymphocytes Absolute Auto 0.8 X10*3/uL (1.2-4.9); Lymphocytes Percent Auto 9.9 % (20-40); Mean Corpuscular HGB Conc 30.8 g/dl (31.0-35.0); Mean Corpuscular Volume 77.8 fL (80.0-98.0); Mean Platelet Volume 8.2 fL (9.4-12.3); Monocytes Absolute Auto 0.7 X10*3/uL (0.1-1.2); Neutrophils Absolute Auto 6.2 x10*3/uL (2.0-8.3); Neutrophils Percent Auto 76.1 % (45-73); Platelet Count 475 X10*3/uL (160-400); Red Blood Count 3.92 X10*6/uL (4.20-5.50); Red Cell Distribution Width 17.6 % (11.0-16.0); White Blood Count 8.2 X10*3/uL (4.8-10.8)
[2024-11-12 18:16] LABS: Alanine Aminotransferase 11 U/L (0-31); Albumin Level 3.9 g/dL (3.5-5.0); Aspartate Amino Transferase 19 U/L (5-31); C Reactive Protein 0.45 mg/dL (< or = 0.50); Calcium 9.2 mg/dL (8.4-10.2); Estimated Glomerular Filt Rate 52
[2024-11-12 18:24] LABS: Vitamin D 25-OH Total 60.4 ng/mL (>30)
[2024-11-12 18:51] LABS: Erythrocyte Sedimentation Rate 14 MM/HR (0-20)
== END 2024-11-12 12:35 | disposition home or self-care (01) ==
LOC: HO.HKASLDS 12:34
PROVIDERS: PCP Internal Medicine; Visit Provider Internal Medicine Rheumatology
DX: M06.9 Rheumatoid arthritis, unspecified (principal); R53.1 Weakness; M85.80 Other specified disorders of bone density and structure, unspecified site; Z78.0 Asymptomatic menopausal state; Z79.60 Long term (current) use of unspecified immunomodulators and immunosuppressants; Z79.899 Other long term (current) drug therapy
CPT/HCPCS: 36415; 82040; 82306; 82310; 82565; 84450; 84460; 85025; 85652; 86140

== ENCOUNTER 2025-02-23 12:53 | Outpatient (AMB) | payer MEDICARE, SELFPAY ==
[2025-02-23 12:59] VITALS: BP 180/100; PULSE 75; O2SAT 97
--- NOTE | 2025-02-23 12:59 | A.OFFVIS_ITS ---
Vital Signs 02/23/25 12:59 Height 5 ft 5 in BP 180/100 H Blood Pressure Location Rt brachial Position Sitting Pulse 75 Pulse Source Pulse Oximeter Pulse Oximetry (%) 97 Oxygen Delivery Method Room Air Comment 120/80 right arm sitting Intake Visit Reasons: 3 months Intake Note: Patient presents today for an RA follow up. Accompanied by: Self / Same As Patient Allergies codeine Allergy (Mild, Verified 02/23/25 13:04) Vomiting Opioids - Morphine Analogues Allergy (Mild, Verified 02/23/25 13:04) Vomiting pineapple Allergy (Mild, Verified 02/23/25 13:04) Vomiting methotrexate Adverse Reaction (Severe, Verified 02/23/25 13:04) mouth ulcers Medication List - Last Reconciled 02/23/25 by Alexander Ortiz MD aspirin 81 mg PO DAILY cholecalciferol (vitamin D3) 25 mcg PO DAILY hydroxychloroquine 400 mg (2 x 200 mg) PO DAILY 90 days levothyroxine 25 mcg PO DAILY mecobalamin (vitamin B12) 1,000 mcg PO DAILY metoprolol succinate ER 25 mg PO DAILY omeprazole 20 mg PO DAILY prednisone 2 mg PO DAILY rosuvastatin 10 mg PO DAILY solifenacin 10 mg PO DAILY trimethoprim 100 mg PO DAILY zolpidem 10 mg PO BEDTIME HPI HPI 3 months: Details: She returned from rehab after being treated for UTI. She has been off antibiotic for 2 weeks. She has left 5th finger pain. Morning stiffness hours in left hand. No new joint swelling. She feels finger is broken. [facility] Social History Household Members: Spouse Housing: House Alcohol intake: former Patient Tobacco Use Status: Former Tobacco user Years Smoked: 10 Physical Exam Vital Signs: Last Vital Signs Pulse 75 02/23/25 12:59 BP 180/100 H 02/23/25 12:59 Pulse Ox 97 02/23/25 12:59 Oxygen Delivery Method Room Air 02/23/25 12:59 Const Other: General: Comfortable CVS: RRR Respiratory: clear to auscultation bilaterally. Good respiratory effort Skin: No lesions seen MSK: Examined in wheelchair. Tender left 5th PIP. No synovitis. Heberden's nodes present. Bilateral Shoulder abduction 160 degrees with good internal and external rotation. Limited full flexion of knees. No ankle or MTP tenderness. Assessment & Plan Assessment & Plan (1) Rheumatoid arthritis: Comment: Inflammatory arthritis is not controlled on hydroxychloroquine and prednisone 2 mg daily. She was unable to taper off of prednisone. Left 5th PIP pain is likely due to inflammatory arthritis. Discussed side effects of long-term low- dose prednisone use including progression of osteopenia to osteoporosis. We discussed next steps in treatment including adding DMARD therapy to hydroxychloroquine. Discussed side effects, benefits and drug monitoring on Xeljanz. Rheumatology history: Seropositive (RF). Onset 2011. Methotrexate 2012 to January 2021 discontinued due to oral ulcers and pancytopenia with biopsy confirming mucositis. Chronic prednisone use. Leflunomide May 03, 2022 to June 03, 2022 kidney dysfunction. Sulfasalazine caused drowsiness. Hydroxychloroquine August 2022 to present. Code(s): M06.9 - Rheumatoid arthritis, unspecified Category: Medical Qualifiers: Rheumatoid arthritis location: unspecified site Rheumatoid factor presence: unspecified presence Qualified Code(s): M06.9 - Rheumatoid arthritis, unspecified Plan: Continue hydroxychloroquine 300 mg daily. APRJanuary 2023 and visual field May 2023 okay. VF 09/2024 ok. She has a follow up appointment next month. She will increase prednisone 5 mg daily until left hand pain resolves and decrease prednisone back to 2 mg daily Labs for drug monitoring on high-risk medication ordered. Lipid panel fasting ordered for patient to do local to her home. 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 Risk factor: chronic low-dose prednisone and age. Code(s): M85.80 - Other specified disorders of bone density and structure, unspecified site; Z78.0 - Asymptomatic menopausal state Category: Medical Plan: Continue calcium carbonate 600 mg daily. Continue vitamin-D 1000 IU daily Bone density due October 2025 (3) Hypertension: Comment: Uncontrolled. Blood pressure 180/100 asymptomatic. Repeat was 120/80. Code(s): I10 - Essential (primary) hypertension Category: Medical Plan: She has a follow up with PCP on next . I recommend follow up for hypertension management. Orders: Orders Complete Blood Count Auto Diff Today Z79.899 - Other residential (current) drug therapy Alanine Aminotransferase Today Z79.899 - Other residential (current) drug therapy Creatinine Today Z79.899 - Other marine oil terminal superintendent (current) drug therapy Erythrocyte Sedimentation Rate Today Z79.899 - Other marine oil terminal superintendent (current) drug therapy Aspartate Amino Transferase Today Z79.899 - Other marine oil terminal superintendent (current) drug therapy C Reactive Protein Today Z79.899 - Other marine oil terminal superintendent (current) drug therapy Lipid Panel Today M06.9 - Rheumatoid arthritis, unspecified Medications: Changed From prednisone 2 mg PO DAILY To prednisone Replace previous rx 2 mg (2 x 1 mg) PO DAILY 90 tabs 1RF Refilled prednisone Replace previous rx 2 mg (2 x 1 mg) PO DAILY 180 tabs 1RF Coding Level of Care Code Est Pt Level 4 (35738) Complex EM visit Add On G2211 Diagnoses Rheumatoid arthritis, involving unspecified site, unspecified whether rheumatoid factor present M06.9 Rheumatoid arthritis location: unspecified site Rheumatoid factor presence: unspecified presence Osteopenia after menopause M85.80; Z78.0 Hypertension I10
--- OUTSIDE RECORDS SUMMARY | 2025-02-23 13:36 | XMS_ITS | Encounter Summary ---
Author Organization [facility] Address [address] [place] [address] Care Team Providers Care Silver Lap Machine Tender Name Role Phone Ruba Quezada MD Primary Care Prov ider Reason for Referral * Home Health (Routine) - Pending Review Specialty Diagnoses / Procedures Referred By Contac t Referred To Contact Home Health Services Diagnoses Weakness of lower extremity, unspecified laterality Contreras Bonilla PA [address] [place], [place] Phone: tel: fax: Referral ID Status Reason Start Date Expiration Date Visits Requested Visits Authorized [id number] Pending Review Consult and Treat 02/19/2025 02/19/2026 1 1 Scheduling Instructions FIRST and LAST NAME of SPECIALIST PATIENT is seeing: [facility] Fax #: (if applicable): [phone] Reason for Visit * Reason Onset Date Comments Referral 2025 Encounter Details Date Type Department Care Team ([facility] st Contact Info) Description 2025 Telephone Adult Medicine - [place] [address] [place] [id number] Ruba Quezada MD [address] [place], [place] Referral Social History Tobacco Use Types Packs/Day Years Used Date Smoking Tobacco: Former Cigarettes 0.5 17.4 0 1963 - 07/15/1980 Smokeless Tobacco: Never Alcohol Use Standard Drinks/Week Comments Yes 0 (1 standard drink = 0.6 oz pur e alcohol) Interpersonal Safety Answer Date Record ed Physical Abuse 01/22/2025 Verbal Abuse 01/22/2025 Comments No Sex and Gender Information Value Date Recorded Sex Assigned at Not on file Legal Sex Female 11:01 PM EST Gender Identity Not on file Sexual Orientation Not on file documented as of this encounter Progress Notes * Suzette Snider RN - 02/22/2025 1:54 PM EDT Faxed to [facility] at number below * FERNANDEZ Armas - 02/19/2025 2:19 PM EDT Thank you so much. No problem at all! Routed over to triage as well * Julia Borrero MA - 02/19/2025 2:15 PM EDT Re-pended, my apologies. * FERNANDEZ Armas - 02/19/2025 1:50 PM EDT If this is for home health evaluation it needs to be a different referral type. This is the case? * Crista Hicks - 02/19/2025 1:42 PM EDT Please fax with appropriate info to: [phone] * Julia Borrero MA - 02/19/2025 1:16 PM EDT Referral pended. * Hans Mckeon - 02/16/2025 9:58 AM EDT Pt's spouse calling to check on status of this. Would like callback to [phone] once finished. Pls advise. * Momo Bergeron - 2025 3:20 PM EDT Referral Request: What insurance does the patient have today? [employer] Medicare Advantage Referrals cannot be processed if the insurance is not accurate. If the insurance listed above in red is NO BILLING INFORMATION FOUND FOR THIS ENCOUTNER The patients correct insurance must be obtained and registered in [facility] or their referral can not be processed. Who is calling to request this referral? Spouse If the caller is not the patient, what is their name? Wei Ask the patient WHO referred them to this specialty: Patient self referred FIRST and LAST NAME of SPECIALIST PATIENT is seeing: [facility] What specialty is this? Physical Therapy DIAGNOSIS Patient is being seen for (Not a body part or a procedure): Leg Weakness Have you seen this SPECIALIST for this PROBLEM/DX before? If YES, when? No Have you checked REVIEW or the APPT DESK to see if this referral has already been done or has visits left? Is this visit: Initial Visit Address of Specialist: Phone # of Specialist: Fax #: (if applicable): [phone] Does patient have an appointment scheduled?: no Date of appointment- (including a retro-request): Is this appointment related to: documented in this encounter Plan of Treatment Upcoming Encounters Date Type Department Care Team (Late st Contact Info) Description 02/25/2025 1:00 PM EDT Office Visit Adult Medicine [address] [place] [address] Becka Leach PA [address] [place] [address] 04/14/2025 8:30 AM EDT Treatment Pelvic Floor Rehabilitation - [address] [place] [address] Lizbet Jurado, PT [address] [facility] [place] [address] Scheduled Referrals Name Type Priority Associated Diagnoses Orde r Schedule Ambulatory referral to Home Health Outpatient Referral Routine Weakness of lower extremity, unspecified laterality Expected: 02/19/2025, Expires: 02/19/2026 documented as of this encounter Visit Diagnoses Diagnosis Weakness of lower extremity, unspecified laterality- Primary documented in this encounter Care Teams Silver Lap Machine Tender Relationship Specialty Start Date End Date Ruba Quezada MD [address] [place] [address] PCP - General Internal Medicine 06/21/24 documented as of this encounter
--- OUTSIDE RECORDS SUMMARY | 2025-02-23 13:36 | XMS_ITS | Clinical Summary ---
Author Organization [facility] Address [address] [place] [address] Care Team Providers Care Barrel Tester Name Role Phone Pcp, No Primary Care [...] ml/min 07/09/2019 Coronary artery disease invo lving [place] coronary artery of [place] heart without angina pectoris 11/17/2018 Community acquired [...] 103 03/10/2020 9:59 AM EDT Temperature 36.7 C (98 F) 03/10/2020 7:52 AM EDT Respiratory Rate 16 [...] - 1-dose 75+ series) 2017 COVID-19 Vaccine (2023- season) 2024 Influenza Vaccine (#1) 2025 9, 04/14/2018, 04/01/2017, Additional history exists Tdap and Td Vaccines Adult 05/25/2025 05/25/2015 Hepatitis A Vaccines Aged Out 08/14/2004 No long er eligible based on patient's age to complete this topic Pneumococcal Vaccine: 50+ Years Completed 01/14/2015, 02/15/2014, 06/06/2005 HIB Vaccines Aged Out No longer eligi ble based on patient's age to complete this topic HPV Vaccines (No Doses Required) Completed Meningococcal Vaccine Aged Out No daniella karissa eligible based on patient's age to complete this topic RSV <20 Months Aged Out No longer gary gible based on patient's age to complete this topic Insurance MANAGED MEDICARE GENERIC Advance Directives * Full Code (Latest Code Status on File) Date Activated Date Inactivated Comments 03/09/2020 3:10 AM 03/10/2020 1:29 PM Care Teams Barrel Tester Relationship Specialty Start Date End Date Pcp, No [place] [address] PCP - General 03/08/20
--- OUTSIDE RECORDS SUMMARY | 2025-02-23 13:36 | XMS_ITS | Clinical Summary ---
Author Organization [facility] Address [address] [place] [address] Care Team Providers Care Engineering Professor Name Role Phone Christine Gan MD Primary [...] season) 2024 08/28/2020, 08/07/2020 Influenza Vaccine (#1) 2025 , 04/14/2018, 04/01/2017, Additional history exists DTap / Tdap / Td (2 - Td or Tdap) 05/25/2025 05/25/2015 Pneumococcal Vaccine Completed 01/14/2015, 02/15/2014, 06/06/2005 Hepatitis B Vaccines Aged Out No long er eligible based on patient's age to complete this topic RSV Ped < 20 months Aged Out No longe r eligible based on patient's age to complete this topic Care Teams Engineering Professor Relationship Specialty Start Date End Date Christine Gan MD PCP - General Internal Medicine 06/22/20
== END 2025-02-23 13:44 | disposition home or self-care (01) ==
LOC: HO.RHES 12:54
PROVIDERS: PCP Internal Medicine; Visit Provider Internal Medicine Rheumatology
DX: M06.9 Rheumatoid arthritis, unspecified (principal); M85.80 Other specified disorders of bone density and structure, unspecified site; Z78.0 Asymptomatic menopausal state; I10 Essential (primary) hypertension
CPT/HCPCS: 99214; G2211

== ENCOUNTER → 2025-02-23 12:53 | Outpatient (BNVA) | payer MEDICARE, SELFPAY | PROVIDERS: PCP Internal Medicine; Visit Provider Internal Medicine Rheumatology | DX: M06.9 Rheumatoid arthritis, unspecified (principal); M85.80 Other specified disorders of bone density and structure, unspecified site; I10 Essential (primary) hypertension; Z79.899 Other long term (current) drug therapy | CPT/HCPCS: 99212 ==

== ENCOUNTER 2025-05-26 12:57 | Outpatient (REF) | payer MEDICARE, SELFPAY ==
[2025-05-26 18:08] LABS: MANUAL DIFF FLAG NO
[2025-05-26 18:22] LABS: Alanine Aminotransferase 12 U/L (0-31); Aspartate Amino Transferase 28 U/L (5-31); Cholesterol 163 mg/dL (<200); Estimated Glomerular Filt Rate 48; HDL Cholesterol 63 mg/dL (>40); Triglycerides 88 mg/dL (<150)
[2025-05-26 19:06] LABS: Hematocrit 28.1 % (37.0-47.0); Hemoglobin 8.5 g/dl (12.0-16.0); Imm Gran Abs Auto 0.04 X10*3/uL (0.00-0.03); Imm Gran Pct Auto 0.5 % (0.0-0.4); Lymphocytes Absolute Auto 0.7 X10*3/uL (1.2-4.9); Mean Corpuscular HGB Conc 30.2 g/dl (31.0-35.0); Mean Corpuscular Hemoglobin 23.5 pg (27.0-33.0); Mean Corpuscular Volume 77.6 fL (80.0-98.0); NRBC Abs Auto 0.000 X10*3/uL (0.0-0.012); NRBC Pct Auto 0.0 /100WBC (0.0-0.2); Platelet Count 385 X10*3/uL (160-400); Red Blood Count 3.62 X10*6/uL (4.20-5.50); White Blood Count 8.1 X10*3/uL (4.8-10.8)
== END 2025-05-26 12:58 | disposition home or self-care (01) ==
LOC: HO.HKASLDS 12:57
PROVIDERS: PCP Internal Medicine; Visit Provider Internal Medicine Rheumatology
DX: M06.9 Rheumatoid arthritis, unspecified (principal); Z79.899 Other long term (current) drug therapy; Z79.52 Long term (current) use of systemic steroids; M85.80 Other specified disorders of bone density and structure, unspecified site
CPT/HCPCS: 36415; 80061; 82565; 84450; 84460; 85025; 85652; 86140

== ENCOUNTER 2025-05-26 12:57 | Outpatient (AMB) | payer MEDICARE, SELFPAY ==
--- NOTE | 2025-05-26 13:09 | A.OFFVIS_ITS ---
Vital Signs 05/26/25 13:10 Height 5 ft 5 in Weight 143 lb 4.807 oz BMI 23.8 BP 122/82 Blood Pressure Location Rt brachial Position Sitting Pulse 77 Pulse Source Pulse Oximeter Pulse Oximetry (%) 99 Oxygen Delivery Method Room Air Intake Visit Reasons: 3 Months Intake Note: Patient presents today for an RA follow up. Accompanied by: Self / Same As Patient Allergies codeine Allergy (Mild, Verified 05/26/25 13:10) Vomiting Opioids - Morphine Analogues Allergy (Mild, Verified 05/26/25 13:10) Vomiting pineapple Allergy (Mild, Verified 05/26/25 13:10) Vomiting methotrexate Adverse Reaction (Severe, Verified 05/26/25 13:10) mouth ulcers HPI HPI 3 Months: Details: She was treated for a bladder infection a couple of weeks ago with antibiotic. She follows with urologist. She continues to take prednisone 1 mg daily. She feels well. No morning stiffness. No joint swelling. [facility] Social History Household Members: Spouse Housing: House Alcohol intake: former Patient Tobacco Use Status: Former Tobacco user Years Smoked: 10 Physical Exam Vital Signs: Last Vital Signs Pulse 77 05/26/25 13:10 BP 122/82 05/26/25 13:10 Pulse Ox 99 05/26/25 13:10 Oxygen Delivery Method Room Air 05/26/25 13:10 BMI result Body Mass Index 23.8 Const Other: General: Comfortable CVS: RRR Respiratory: clear to auscultation bilaterally. Good respiratory effort Skin: No lesions seen MSK: Examined in wheelchair. No tender joints. No synovitis. Heberden's nodes present. Bilateral Shoulder abduction 160 degrees with good internal and external rotation. Limited full flexion of knees. No ankle or MTP tenderness. Assessment & Plan Assessment & Plan (1) Rheumatoid arthritis: Comment: Inflammatory arthritis is controlled on hydroxychloroquine and prednisone 1 mg daily. Her hydroxychloroquine dose needs to be readjusted based on her current weight. She was unable to taper off of prednisone in the past. After adjusting hydroxychloroquine dose, I will monitor her. If she has a flare, Iwill need to add DMARD therapy. We discussed next steps in treatment adding DMARD therapy to hydroxychloroquine. Discussed side effects, benefits and drug monitoring on [place]. Rheumatology history: Seropositive (RF). Onset 2011. Methotrexate 2012 to January 2021 discontinued due to oral ulcers and pancytopenia with biopsy confirming mucositis. Chronic prednisone use. Leflunomide May 03, 2022 to June 03, 2022 kidney dysfunction. Sulfasalazine caused drowsiness. Hydroxychloroquine August 2022 to present. Code(s): M06.9 - Rheumatoid arthritis, unspecified Category: Medical Qualifiers: Rheumatoid arthritis location: unspecified site Rheumatoid factor presence: unspecified presence Qualified Code(s): M06.9 - Rheumatoid arthritis, unspecified Plan: Continue hydroxychloroquine 300 mg daily. APRMarch 2025 okay. 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 Normal inflammatory markers. 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 She follows with Dr. Salgado Continue prednisone 1 mg daily Labs for drug monitoring on high-risk medication ordered. Lipid panel ordered Information on Xeljanz given to patient Return to clinic in 3 months (2) Osteopenia after menopause: Comment: Moderate fracture risk on bone density from October 15, 2023. Risk factor: chronic low-dose prednisone and age. Code(s): M85.80 - Other specified disorders of bone density and structure, unspecified site; Z78.0 - Asymptomatic menopausal state Category: Medical Plan: Continue calcium carbonate 600 mg daily. Continue vitamin-D 1000 IU daily Bone density due October 2025 Medications: Changed From hydroxychloroquine 400 mg (2 x 200 mg) PO DAILY 90 days 180 tabs 1RF To hydroxychloroquine 300 mg (1.5 x 200 mg) PO DAILY 135 tabs 1RF 90 days From prednisone Replace previous rx 2 mg (2 x 1 mg) PO DAILY 180 tabs 1RF To prednisone 1 mg PO DAILY 90 tabs 1RF 90 days Coding Level of Care Code Est Pt Level 4 (71952) Complex EM visit Add On G2211 Diagnoses Rheumatoid arthritis, involving unspecified site, unspecified whether rheumatoid factor present M06.9 Rheumatoid arthritis location: unspecified site Rheumatoid factor presence: unspecified presence Osteopenia after menopause M85.80; Z78.0
[2025-05-26 13:10] VITALS: BP 122/82; PULSE 77; O2SAT 99; BMI 23.8
--- OUTSIDE RECORDS SUMMARY | 2025-05-26 15:33 | XMS_ITS | Clinical Summary ---
Author Organization [facility] Address [address] [place] [address] Care Team Providers Care Surveyor Oil Well Directional Name Role Phone Pcp, No Primary Care [...] ml/min 07/09/2019 Coronary artery disease invo lving [place] coronary artery of [place] heart without angina pectoris 11/17/2018 Community acquired [...] 75+ series) 2017 COVID-19 Vaccine ( - 2024- season) 2025 Influenza Vaccine (#1) 2025 9, 04/14/2018, 04/01/2017, [...] 3:10 AM 03/10/2020 1:29 PM Care Teams Surveyor Oil Well Directional Relationship Specialty Start Date End Date Pcp, No [place] [address] PCP - General 03/08/20
--- OUTSIDE RECORDS SUMMARY | 2025-05-26 15:33 | XMS_ITS | Encounter Summary ---
Author Organization [facility] Address [address] [place] [address] Care Team Providers Care Hematology Technician Name Role Phone Pcp, No Primary Care Provider Unavailabl e Encounter Details Date Type Department Care Team ([facility] st Contact Info) Description 03/08/2020 Procedure Pass [facility], Radiology (CT Scan) [address] [place] [address] Social History Tobacco Use Types Packs/Day Years [...] on filedocumented in this encounter Care Teams Hematology Technician Relationship Specialty Start Date End Date Pcp, No [place] [address] PCP - General 03/08/20 documented as of this encounter
--- OUTSIDE RECORDS SUMMARY | 2025-05-26 15:33 | XMS_ITS | Encounter Summary ---
Author Organization [facility] Address [address] [place] [address] Care Team Providers Care Clerical Adjuster Name Role Phone uRba Quezada MD Primary Care Prov ider Reason for Visit * Reason Onset Date Comments Labs Only 04/14/2025 Encounter Details Date Type Department Care Team (Late Contact Info) Description 04/14/2025 Results Follow-Up Urogynecology - [address] [place] [address] Belle Manley RN Social History Tobacco Use Types Packs/Day Years Used Date Smoking Tobacco: Former Cigarettes 0.5 17.4 0 1963 - 07/15/1980 Smokeless Tobacco: Never Alcohol Use Standard Drinks/Week Comments Yes 0 (1 standard drink = 0.6 oz pur e alcohol) Interpersonal Safety Answer Date Record ed Physical Abuse Unrecognized value 01/22/2025 Verbal Abuse Unrecognized value 01/22/2025 Comments No Sex and Gender Information Value Date Recorded Sex Assigned at Not on file Legal Sex Female 11:01 PM EST Gender Identity Not on file Sexual Orientation Not on file documented as of this encounter Progress Notes * Juanis Kenny - 04/14/2025 11:14 AM EDT Pt calling stating she will go to [facility] to complete her urine culture. documented in this encounter Plan of Treatment Upcoming Encounters Date Type Department Care Team (Late Contact Info) Description 06/08/2025 1:30 PM EST Procedure visit Urogynecology - [place] [address] [place], [place] [phone] Mary Carmen Cleaning MD [address] [facility] [address] [place] [address] 07/28/2025 11:45 AM EST Office Visit Adult Medicine - [facility] [address] [place] [address] Becka Leach PA [address] [place], [place] 09/08/2025 3:30 PM EST Consult Nephrology - [place] [address] [place], [place] [phone] Max Barrow MD [address] [facility] [address] [place] [address] documented as of this encounter Visit Diagnoses Not on filedocumented in this encounter Care Teams Clerical Adjuster Relationship Specialty Start Date End Date Ruba Quezada MD [address] [place], [place] PCP - General Internal Medicine 06/21/24 documented as of this encounter
--- OUTSIDE RECORDS SUMMARY | 2025-05-26 15:33 | XMS_ITS | Encounter Summary ---
Author Organization [facility] Address [address] [place] [address] Care Team Providers Care Hospice Home Care Coordinator Name Role Phone Pcp, No Primary Care Provider Unavailabl e Encounter Details Date Type Department Care Team ([facility] st Contact Info) Description 03/09/2020 [facility] Pass [facility] [address] [place] [address] Social History Tobacco Use Types Packs/Day Years [...] on filedocumented in this encounter Care Teams Hospice Home Care Coordinator Relationship Specialty Start Date End Date Pcp, [place] [address] PCP - General 03/08/20 documented as of this encounter
--- OUTSIDE RECORDS SUMMARY | 2025-05-26 15:33 | XMS_ITS | Data Portability ---
Author Organization [facility] Address [address] [place] [phone] Care Team Providers Care Inspector Packer Name Role Phone PASQUALE GREENE Primary Care [...] blisters, she was seen again yesterday at [facility] who prescribed Triamcinolone acetonide 0.1% [...] I have accessed patient records on the [employer]. This information was pertinent in my medical decision making today. Proper Personal Protective Equipment (PPE), including gloves, eye protection and masks were donned and doffed appropriately and all equipment cleaned using approved technique with germicidal disposable wipes prior to and after care of this patient according to [facility]'s infection prevention protocols. [email or web address] Not available 01/24/2021 16:35:56 01/27/2021 01/27/2021 Time [...] worsening symptoms, shortness of breath or concerns. [email or web address] Not available 01/27/2021 15:05:35 Plan of Treatment [...] Choice, 22:13:39 albumin, serum or plasma 2020 [email or web address] [facility] (Centralized Electronic Ordering - All Locations), Patient Can Go To The Location Of Their Choice, 08:53:46 Referral dermatolog ist referral 2020 [facility], [address] [place] [address], [address], [place], [address], 16:04:03 Procedures None recorded. Surgeries None recorded. Imaging None recorded. Medication Orders Lidocaine Viscous 2 % mucosal solution 2020 [email or web address] [id number], [address] [facility], [place], [address], 15:57:28 Patient TargetsNo targets recorded. Patient Instructions Encounter Date Encounter Id Patient Instructions Last Modified By Organization Details Last Modified Time 01/24/2021 [id number] canker sore: car e instructions [email or web address] Not available 01/24/2021 15:47:38 T-98.2 HR-84 B/P - 128/64 RR-18 O2 sat 96% RA -It is unclear what is causing the blister reaction on your lips. -Try topical Lidocaine medication- apply to layer of lips- should help with discomfort. (do not swish or swallow) -Continue soft foods. -Recommend seeing a society editor to determine cause of ulcerations on lips. -Strongly recommend following up with PCP regarding weight loss. [email or web address]. We cannot always find the exact [...] in your condition between 8am-10pm, please call CallmyName at [phone] to help navigate your care. Not available 01/24/2021 15:45:41 01/27/2021 [id number] [email or web address] came to see you for mouth sores. [...] well as they have been bothering you. [email or web address] Not available 01/27/2021 09:32:55 Reason for Referral Patient Services Specialist Referral for U lcer of mouth Concerns [...] 01/27/2021 20:52:01/28/2001/27/2021 COMPL ETE CBC WITH DIFF MPV 10.0 [...] The Location Of Their Choice, 01/27/2021 20:52:16 01/28/2001/27/2021 BUN BUN 61 mg/dL (8-23) high Not [...] or ethni c subgr oups other than [employer] tesfaye and [employer]. Not Available [...] Go To The Location Of Their Choice, [id number] 01/27/2021 22:13:43 01/28/20 21 01/27/2021 ELECT ROLYT ES anion gap 14 (4-17) Not Available [facility] (Centralized Electronic Ordering - All Locations) Patient Can Go To The Location Of Their Choice, [id number] 01/27/2021 22:13:43 Result Notes None recorded. Procedures Surgical History Date Name Laterality Status Provider Name and Address Organization Details Recorded Time 01/25/20 Medication Review completed Supriya Condon NP [address], [place], [address], [place] [facility] 01/24/2021 16:37:23 partial mastectomy completed Supriya Condon NP [address], [place], [address], [place] [facility] 01/24/2021 15:12:55 Imaging Results None recorded. Procedure Notes None recorded. Medical Equipment None Reported. Allergies Allergen ID Allergen Name Allergen Category Reaction Reaction Severity Criticality Documentation Date Start Date Code Code System Note Provider Name and Address Organization Details Recorded Time [id number] codeine medicatio n Not available Not available Not available 01/24/2021 2670 RxNorm Supriya Condon NP [address], [place], [address], [place] [facility] 15:11:09 [id number] morphine medicatio n Not available Not available Not available 01/24/2021 7052 RxNorm Supriya Condon NP [address], [place], [address], [place] [facility] 15:11:13 Medications [...] Pulse oximetry Respiratory rate Body temperature Systolic And Diastolic Provider Name and Address Organization Details Last Updated DateTime 1 84 /min 96 % 96 % 18 /min 98.2 [degF] 128/64 mm[Hg] Not Available [facility] 15:27:07 Date Recorded Heart rate Respiratory rate Body temperature Oxygen saturation Oxygen saturation in Arterial blood by Pulse oximetry Systolic And Diastolic Provider Name and Address Organization Details Last Updated DateTime 96 /min 18 /min 96.8 [degF] 94 % 94 % 102/54 mm[Hg] Not Available [facility] 08:43:36 Social History Question Answer Notes LastModified by Organizat ion Details LastModified Time Tobacco Smoking Status Former Smoker Supriya Condon, [facility] [address], [place], [address], [place] [facility] 01/24/2021 15:12:03 What Is Your Code Status? Full Code [email or web address] Information not available 01/24/2021 Within The Past 12 Months, Has It Happened That The Food You Bought Just Didn't Last And You Didn't Have Money To Get More. No [email or web address] Information not available 01/24/2021 Within The Past 12 Months, Have You Worried That Your Food Would Run Out Before You Got Money To Buy More. No [email or web address] Information not available 01/24/2021 Fall Risk: Do You Feel Unsteady When Standing Or Walking? No [email or web address] Information not available 01/24/2021 We Know That How And When People Interact With Friends And Family Can Be Very Different From Person To Person. How Often Do You Have The Opportunity To See Or Talk To People That You Care About And Feel Close To? (Ex: Talking To Friends On The Phone Or Visiting Friends Or Family Or Going To [employer] Or Club Meetings) 5 Or More Times Per Week Information not available 01/24/2021 We Know From Many Of Our Patients That Covering All Of Their Costs Can Be Difficult At Times. This Can Cause Stress And Impact Health. In The Past Year, Have You Been Unable To Get Any Of The Following When It Was Really Needed? No [email or web address] Information not available 01/24/2021 What Is Your Housing Situation Today? I Have Housing Information not available 01/24/2021 Would You Like Help Connecting To Resources? None [email or web address] Information not available 01/24/2021 Sex: Unknown Functional Status None recorded. Mental Status None recorded. Family History Relationship Description Onset Age of this Age Resolved Age Notes LastModified by Organization Details LastModified Time Father Coronary arterioscler osis [email or web address] Not available 2020 15:12:31 Medical History Condition Response Diabetes Y Coronary Artery Disease N High Cholesterol Y Pulmonary Embolism N Cancer Y Hypertension N Stroke N Asthma N COPD N Depression N Kidney Disease N Gynecological HistoryNo gynecological history recorded. Obstetrics History GPAL:G 0 P 0 0 0 0 Past Encounters Encounter ID Performer Location Encounter Start Date Encounter Closed Date Diagnosis/Indication Diagnosis SNOMED-CT Code Diagnosis ICD10 Code Diagnosis IMO Codes Diagnosis Note [id number] Supriya Condon NP [facility] [address] [place] [address] 01/24/2021 14:47:12 01/25/2021 13:19:37 Aphthous ulcer of mouth 598284337 K12.0 Ulcer of mouth 17402766 K12.1 Unintentio nal weight loss 473624569 R63.4 [id number] AMAURI TREVINO NP [facility] [address] [place] [address] 01/27/2021 08:36:25 01/27/2021 16:23:38 Stomatitis 54421626 K12.30 Health Concerns Section Related Observation LastModified by Organization Detai ls LastModified Time None Recorded Concern Status LastModified by Organization Details LastModified Time None Recorded Advance Directives Directive None Recorded Payers Insurance Date Sequence Insurance Name Policy Number Policy Swanson Covered Member ID Swanson Member ID Guarantor Name 01/31/2021 3 [place] [employer] Gely Busby [id number] Gely Busby 01/27/2021 1 [employer] - SENIOR PLAN (MEDICARE SUPPLEMENT) Gely Busby [id number] Gely Busby 01/31/2021 1 [employer] - SENIOR [employer] (MEDICARE REPLACEMENT HMO) Gely Busby [id number] Gely Busby 01/27/2021 3 [employer] [facility] - SENIOR PLAN (MEDICARE SUPPLEMENT) Gely Busby [id number] Gely Busby 01/24/2021 1 *SELF PAY* Gely Busby [id number] Gely Busby 01/25/2021 1 [place] [facility] Gely Busby [id number] Gely Busby 01/27/2021 1 [place] [facility] Gley Busby [id number] Gely Busby Notes Date Note Type Note [...] Magic Mouthwash. Yesterday 01/23/21 was seen again [facility]- was prescribed Triamcinolone acetonide 0.1%- this has since made blisters worse. She denies any sun exposure, fevers, N/V/D. Reports poor appetite an 35lb weight loss since back surgery 6 months ago. She has urinary incontinence and frequency- has had (-) UTI's- was seen by Urology. Supriya Condon, [facility] [address] [facility], [place], [address], [place] [facility] 01/24/2021 16:38:11 01/27/2021 text/html 80 year-old female with history of RA on prednisone, DM, [...] and no infections. AMAURI TREVINO, [facility]LL[facility] [address], [place], [address], [place] [facility] 01/27/2021 15:05:43 OBGyn Episode No OBEpisode recorded.
--- OUTSIDE RECORDS SUMMARY | 2025-05-26 15:33 | XMS_ITS | Encounter Summary ---
Author Organization [facility] Address [address] [place] [address] Care Team Providers Care Plate Grainer Apprentice Name Role Phone Pcp, No Primary Care Provider Unavailabl e Encounter Details Date Type Department Care Team ([facility] st Contact Info) Description 03/09/2020 [facility] [address] [place] [address] Social History Tobacco Use Types Packs/Day Years [...] on filedocumented in this encounter Care Teams Plate Grainer Apprentice Relationship Specialty Start Date End Date Pcp, [place] [address] PCP - General 03/08/20 documented as of this encounter
--- OUTSIDE RECORDS SUMMARY | 2025-05-26 15:33 | XMS_ITS | Encounter Summary ---
Author Organization [employer] Address [address] [place] [address] Care Team Providers Care Business Intelligence Manager Name Role Phone Pcp, No Primary Care Provider Unavailabl e Encounter Details Date Type Department Care Team ([facility] st Contact Info) Description 03/09/2020 Procedure Pass [facility] [address] [place] [address] Social History Tobacco Use Types Packs/Day Years [...] on filedocumented in this encounter Care Teams Business Intelligence Manager Relationship Specialty Start Date End Date Pcp, No [place] [address] PCP - General 03/08/20 documented as of this encounter
--- OUTSIDE RECORDS SUMMARY | 2025-05-26 15:33 | XMS_ITS | Data Portability ---
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 Plan of Treatment Reminders Order Date Submit Date Provider Last Modified By Organization Details Last Modified Time Details Appointments None recorded. Lab pap test, thinprep, cervical 2019 020 [email or web address] [facility], Cytopathology Service, [address] [place] [address], [address], 0 08:12:24 pap test, thinprep, cervical 2018 019 [facility], Cytopathology Service, [address] [place] [address], [address], 9 11:37:59 pap, LB + reflex HR HPV 2017 018 [facility], Cytopathology Service, [address] [place] [address], [address], 8 17:07:34 pap test, thinprep, cervical 2017 018 [facility], Cytopathology Service, [address] [place] [address], [address], 8 13:17:36 pap test, thinprep, cervical 2016 017 [facility], Cytopathology Service, [address] [place] [address], [address], 7 14:05:52 Referral None recorded. Procedures None recorded. Surgeries None recorded. Imaging MAMMO, screening , digital, bilateral 2019 020 [email or web address] [facility] (Mammography), [address] [place], [address], 2 07:44:12 bone density [address] (Central Scheduling Radiology), [address] [place], [address], 2 07:22:30 MAMMO, screening , digital, bilateral 2018 019 [facility] (Central Scheduling Radiology), [address] [place] [address], [address], 0 15:06:24 MAMMO, screening , digital, bilateral 2017 018 [facility] (Central Scheduling Radiology), [address] [place], [address], 9 07:28:13 MAMMO, screening , digital, bilateral 2016 017 [facility] (Central Scheduling Radiology), [address] [place] [address], [address], 7 10:27:41 Medication Orders nystatin 100,000 unit/gram topical powder 2019 020 INTERFACE [id number], [address] [place] [address], [address], 0 14:24:19 Nystop 100,000 unit/gram topical powder 2017 018 [email or web address] [id number], [address] [place] [address], [address], 0 14:04:08 nystatin 100,000 unit/gram topical powder 2016 017 [email or web address] [id number], [address] [facility], [place], [address], 0 14:04:08 Patient TargetsNo targets recorded. Patient Instructions Encounter Date Encounter Id Patient Instructions Last Modified By Organization Details Last Modified Time 01/11/2017 [id number] advance directiv es: care instructions grabiel Not available 01/11/2017 12:52:54 atrophic vaginit is: care instructions miltontorski Not available 01/11/2017 12:52:54 She is here for annual exam. She has been in [place] and developed a rash in her groin, [...] questions answered. Not available 01/11/2017 12:52:31 01/13/2018 [id number] atrophic vaginit is: care instructions Not available 01/13/2018 11:15:18 She is here for annual exam, is doing well. She usually [facility] in [place], [place], but they didn't this year, they [...] a sleep study, to see if they customer service representative teacher find a better shelter solution for her than Ambien. She appears [...] questions answered. Not available 01/13/2018 12:16:29 04/22/2018 [id number] abnormal Pap danilo t: care instructions Not [...] then colpo Not available 04/22/2018 14:05:43 01/14/2019 [id number] advance benefici rachid notice information Not available [...] is doing well. She usually [facility] in [place], [place], but they didn't this year, they [...] questions answered. Not available 01/14/2019 11:09:38 04/22/2020 [id number] advance benefici rachid notice information Not available [...] is doing well. She usually [facility] in [place], [place], but they didn't this year, they rented it out. She has a personal history of breast cancer. She is seeing Dr. Marie for her rheumatoid arthritis. She has a health care proxy. She appears to be doing well. She requests rx for NyStop powder, is leaving for [place] at the end of this month. She [...] Detail LastModifiedTime 01/12/20 17 01/11/2017 pap, LB [id number] ThinP rep Pap, Image d: NEGAT MINDY FOR SQUAM OUS INTRA EPITH ELIAL REMY Trimble AND LUCY LIM . Atrop hy with infla mmati on is prese nt. Mae Wang, CT( CP) (Case elect nicole [place] 01 17 2017) ADEQU ACY: Satis facto ry. SOURC E: ThinP rep Pap HPV IF Ascus : Refle x 16 and 18, Cervi kathy, Image d: CLINI KATHY INFOR MATIO N: HPV If Diagn osis of ASCUS . HISTO RY OF JUSTIN Hilliard; LAST PAP 6, Z77.9 , V15.8 9, Z91.8 9 Not Available [facility], Cytopathology Service [address] [place], [address], 01/17/2017 14:05:52 01/14/20 18 01/13/2018 pap, LB [id number] ThinP rep Pap, Image d: ATYPI KATHY [...] If Diagn osis of ASCUS . Menop kaelae, lps neg, z12.4 Not Available [facility], Cytopathology Service [address] [place], [address], 01/22/2018 13:17:35 04/22/20 18 04/22/2018 pap, LB [id number] ThinP rep Pap and Cell Block : [...] HPV, Z12.4 Cell block 04/23 Not Available [facility], Cytopathology Service [address] [place], [address], 04/28/2018 17:07:34 01/15/20 19 01/14/2019 pap, LB [id number] ThinP rep Pap, Image d: NEGAT MINDY FOR SQUAM OUS INTRA EPITH ELIAL LESIO N AND MALIG RAPHAEL . Atrop hy. Caitlyn smith CT( CP) (Case elect nicole kahnjocelyne rosita d 01 19 2019) ADEQU ACY: Satis facto ry . SOURC E: ThinP rep Pap HPV IF ASCUS , Cervi kathy, Image d CLINI KATHY INFOR MATIO N: HPV If Diagn osis of ASCUS . LPS NEG [Z12. 4, Z91.8 9] Not Available [facility], Cytopathology Service [address] [place], [address], 01/19/2019 11:37:59 04/22/20 20 04/22/2020 pap test, thinp rep, cervi kathy [id number] ThinP rep Pap, Image d: NEGAT MINDY FOR SQUAM OUS INTRA EPITH ELIAL LESIO N AND MALIG RAPHAEL . React mindy cellu lar malik es. Atrop hy and acute infla mmati on. Palomino Thi Stewart CT( CP) (Case Scree [...] neg, z12.4 , z91.8 9 Not Available [facility], Cytopathology Service [address] [place], [address], 04/29/2020 12:01:21 02/16/20 17 02/15/2017 MAMMO , scree sallie, digit al, bilat eral No observ ation [facility] ed. [email or web address] [address] [place], [address], 02/15/2017 10:37:08 07/21/19 20 07/21/2019 MAMMO , scree sallie, digit al, bilat eral No observ ation record ed. [address] Diagnosit Imaging Dept [address] [place], [address], 07/22/2019 09:17:11 Result Notes None recorded. Problems Name Problem SNOMED Code Status Onset Date Resolution Date Notes Provider Name and Address Organization Details Recorded Time Type 2 diabetes mellitus without complicatio n 980040477 Active Leticia Mcguire MD [address], [place], [address], [place] [facility], 6 11:03:23 Increased frequency of urination 398121710 Active Leticia Mcguire MD [address], [place], [address], [place] [facility], 6 11:03:23 Postmenopau berhane bleeding 78704000 Active Leticia Mcguire MD [address], [place], [address], [place] [facility], 6 11:03:23 Benign essential hypertensio n 5866771 Active Leticia Mcguire MD [address], [place], [address], [place] [facility], 6 11:03:23 Primary malignant neoplasm of female breast 47747483 Active BRCA negative Leticia Mcguire MD [address], [place], [address], [place] [facility], 6 11:03:23 Polyp of corpus uteri 09946560 Active Leticia Mcguire MD [address], [place], [address], [place] [facility], 6 11:03:23 Personal history of primary malignant neoplasm of breast 934915459 Active 2016 Leticia Mcguire MD [address], [place], [address], [place] [facility], 7 12:50:21 Candidiasis of skin 62732374 Active 2016 Leticia Mcguire MD [address], [place], [address], [place] - [facility], 7 12:50:32 Problem Notes None recorded. Procedures Surgical History Date Name Laterality Status Provider Name and Address Organization Details Recorded Time 3 Other completed Perla Meczywor [place] - [facility], 12/10/2013 09:48:39 0 Other completed Perla Meczywor [place] [facility], 06/17/2012 14:35:15 8 Other completed Perla Meczywor [place] [facility], 12/10/2014 13:10:19 4 Other completed Perla Meczywor [place] [facility], 06/17/2012 14:35:15 1 Breast Biopsy completed Leticia Mcguire MD [address], [place], [address], [place] - [facility], 06/17/2012 14:58:57 8 Tonsillectomy completed Perla Mecstefaniwor [place] - [facility], 06/17/2012 14:35:15 Imaging Results None recorded. Procedure Notes None recorded. Medical Equipment None Reported. Allergies Allergen ID Allergen Name Allergen Category Reaction Reaction Severity Criticality Documentation Date Start Date Code Code System Note Provider Name and Address Organization Details Recorded Time 5541 morphine medicatio n vomiting Not available Not available 06/17/2012 7052 RxNorm Perla Meczywor [place] - [facility], 2 14:35:15 5542 codeine medicatio n hives Not available Not available 06/17/2012 2670 RxNorm sever e react ben ochoa ng hives , she was hospi taliz ed for 4 days due to the aller gic react ion Leticia Mcguire MD [address], [place], [address] , [place] - [facility], 3 11:27:21 5661 diltiazem Not available hives Not available Not available 06/23/2012 3443 RxNorm Perla Meczywor [place] mcg[place] - [facility], 2 11:33:55 Medications Name Sig Start Date [...] Not Available Not Available No t Available PiktochartToBeta Dash Ultra Test strips active Not Available Not [...] Body mass index (BMI) Body height Systolic And Diastolic Provider Name and Address Organization Details Last Updated DateTime 01/11/2017 78 /min 99213.59 g 31.8 kg/m2 162.56 cm 138/70 mm[Hg] Sary Craig in [facility], 01/11/2017 11:08:42 Date Recorded Heart rate Body weight Body mass index (BMI) Body height Systolic And Diastolic Provider Name and Address Organization Details Last Updated DateTime 01/13/2018 94 /min 51778.42 g 29.2 kg/m2 162.56 cm 123/66 mm[Hg] Sary Craig in [facility], 01/13/2018 11:06:24 Date Recorded Body height Body mass index (BMI) Body weight Heart rate Systolic And Diastolic Provider Name and Address Organization Details Last Updated DateTime 01/14/2019 162.56 cm 29.7 kg/m2 57518.48 g 86 /min 146/68 mm[Hg] Perla Craig in [facility], 01/14/2019 10:10:36 Date Recorded Body height Body mass index (BMI) Body weight Heart rate Systolic And Diastolic Provider Name and Address Organization Details Last Updated DateTime 04/22/2018 162.56 cm 29.2 kg/m2 46941.14 g 80 /min 128/72 mm[Hg] Sary Craig in [facility], 04/22/2018 10:05:45 Date Recorded Body weight Body mass index (BMI) Body height Body temperature Heart rate Systolic And Diastolic Provider Name and Address Organization Details Last Updated DateTime 0 59093.9 2 g 29.8 kg/m2 162.56 cm 97.8 [degF] 100 /min 157/78 mm[Hg] Jodie Nolasco [place] [facility], 0 13:59:33 Social History Question Answer Notes LastModified by Organizat ion Details LastModified Time Tobacco Smoking Status Former Smoker quit 30yrs ago Not Available [facility] 05/17/2020 03:19:39 What Is Your Level Of Caffeine Consumption? Occasional [id number] Information not available 05/17/2020 What Type Of Diet Are You Following? REGULAR [id number] Information not available 05/17/2020 Which Illicit Or Recreational Drugs Have You Used? No [id number] Information not available 05/17/2020 Do You Reside In Or Have You Traveled To An Area Where Ebola Virus Transmission Is Active? No [id number] Information not available 05/17/2020 Education 12 Information no t available 06/17/2012 How Many Days In The Past Year Have You Had A Heavy Drinking Consumption (4+ Female, 5+ Male)? 0 Information not available 01/11/2017 High Number Of Sexual Partners No Information not available 01/11/2017 To Which Gender Do You Self-identify? Female Information not available 01/11/2017 Marital Status Informatio n not available 06/17/2012 What Was The Date Of Your Most Recent Tobacco Screening? 04/22/2020 [id number] Information not available 05/17/2020 Are You Sexually Active? No [id number] Information not available 05/17/2020 How Much Tobacco Do You Smoke? No [id number] Information not available 05/17/2020 General Stress Level Medium [email or web address] Information not available 04/22/2020 How Many Years Have You Smoked Tobacco? 19 [id number] Information not available 05/17/2020 Have You Recently (within The Last 12 Weeks, Or During A Current ) Traveled To Or Lived In A Zika-affected Area? No Information not available 01/11/2017 Sex: Unknown Functional Status Question Answer Note LastModified by Organizat ion Details LastModified Time What is your level of alcohol consumption? None [id number] Information not available 05/17/2020 Do you or have you ever used smokeless tobacco? 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 Never used electronic cigarettes [id number] Information not available 05/17/2020 What is your exercise level? Occasional [id number] Information not available 05/17/2020 Mental Status None recorded. Family History Relationship Description Onset Age of this Age Resolved Age Notes LastModified by Organization Details LastModified Time Maternal Aunt Malignant neoplasm of breast 70 previo usly record ed as Breast Cancer Not available 12/16/2015 11:01:50 Father Diabetes mellitus previo usly record ed as Diabet es Not available 12/16/2015 11:01:50 Mother Heart disease previo usly record ed as Heart Proble m Not available 12/16/2015 11:01:50 Mother Malignant neoplasm of colon 75 previo usly record ed as Colon Cancer ? Not available 12/16/2015 11:01:50 Medical History Condition Response Anesthesia complications N High Blood Pressure Y Autoimmune Condition N Thyroid Problems Y Kidney or Bladder Problems Y Depression N GI Problems N Lung Disease N Defects or Inherited Disease N Anemia N History of Ovarian Cancer N History of Breast Cancer Y BRCA [...] trivalent, preservative 3 completed [place] in [facility], 12/10/2013 09:48:38 Influenza, split virus, trivalent, preservative 4 completed [place] in [facility], 12/10/2014 13:10:19 Influenza, split virus, trivalent, preservative 5 completed Perla Maxwell null, [place] - [facility], 12/16/2015 10:55:46 influenza, unspecified formulation 6 completed Sary Zendejas null, [place] - [facility], 01/11/2017 11:20:49 influenza, unspecified formulation 7 completed Sary Zendejas null, [place] [facility], 01/13/2018 11:10:28 influenza, unspecified formulation 8 completed Sary Zendejas null, [place] [facility], 04/22/2018 10:07:28 Influenza, split virus, quadrivalent, preservative 0 completed Jodie Nolasco froilan [place] - [facility], 04/22/2020 14:05:03 zoster live 1 completed Perlavahe Maxwell froilan [place] - [facility], 06/17/2012 14:35:16 Influenza, split virus, trivalent, preservative 2 completed Leticia Mcguire MD [address], [place], [address], [place] [facility], 06/17/2012 14:54:43 Past Encounters Encounter ID Performer Location Encounter Start Date Encounter Closed Date Diagnosis/Indication Diagnosis SNOMED-CT Code Diagnosis ICD10 Code Diagnosis IMO Codes Diagnosis Note [id number] MD LETICIA Meraz MD [address] [place] [address] 06/17/2012 14:08:30 06/19/2012 09:52:52 [id number] MD LETICIA Meraz MD [address] [place] [address] 06/23/2012 14:55:01 06/24/2012 09:34:59 [id number] MD LTEICIA Meraz MD [address] [place] [address] 11/18/2012 10:53:18 11/19/2012 12:12:08 [id number] MD LETICIA Meraz MD [address] [facility],[place] [address] 12/02/2012 08:52:38 12/03/2012 09:59:53 [id number] MD LETICIA Meraz MD [address] [place] [address],[place] [address] 12/10/2013 09:35:35 12/10/2013 13:48:38 Screening mammography 67449691 History of clinical finding in subject 171305173 [id number] MD LETICIA Meraz MD [address] [place] [address],[place] [address] 12/10/2014 13:00:48 12/10/2014 14:31:52 History of clinical finding in subject 427815986 Screening mammography 35615701 [id number] MD LETICIA Meraz MD [address] [place] [address], [place] [address] 12/16/2015 10:43:08 12/16/2015 14:55:57 History of clinical finding in subject 913540668 Z91.89 Screening mammography 24 180446 Z12.31 [id number] MD LETICIA Meraz MD [address] [facility],[place] [address] 01/11/2017 10:57:53 01/11/2017 13:09:31 History of clinical finding in subject 593033099 Z91.89 Screening mammography 24 514818 Z12.31 Personal h istory of primary malignant neoplasm of breast 859689188 Z85.3 Candidiasis of skin 4988 3006 B37.2 Cares for self 953579283 Z76.89 [id number] MD LETICIA Meraz MD [address] [facility],[place] [address] 01/13/2018 10:37:51 01/13/2018 12:19:12 History of clinical finding in subject 026305944 Z91.89 Screening mammography 24 754104 Z12.31 [id number] MD LETICIA Meraz MD [address] [place] [address],[place] [address] 04/22/2018 09:53:53 04/22/2018 14:08:31 Atypical squamous cells of undetermined significance on cervical Papanicolaou smear 650163633 R87.610 Candidiasis of skin 4988 3006 B37.2 [id number] MD LETICIA Meraz MD [address] [place] [address] 01/14/2019 09:54:16 01/14/2019 11:36:40 History of clinical finding in subject 925797726 Z91.89 Screening mammography 24 853364 Z12.31 Advance care planning 71 0638303 Z71.89 Personal h istory of primary malignant neoplasm of breast 432335938 Z85.3 Benign ess ential hypertension 3321672 I10 Increased frequency of urination 914539285 R35.0 Type 2 luis betes mellitus without complication 164368265 E11.9 [id number] MD LETICIA Meraz MD [address] [facility] [place] [address] 04/22/2020 13:55:27 04/22/2020 14:43:25 History of clinical finding in subject 616038679 Z91.89 Screening mammography 24 794918 Z12.31 Advance care planning 71 1783426 Z71.89 Screening for osteoporosis 121088126 Z13.820 Candidiasis of skin 4988 3006 B37.2 Health Concerns Section Related Observation LastModified by Organization Detai ls LastModified Time None Recorded Concern Status LastModified by Organization Details LastModified Time None Recorded Advance Directives Directive None Recorded Payers Insurance Date Sequence Insurance Name Policy Number Policy Swanson Covered Member ID Swanson Member ID Guarantor Name 08/21/2021 1 CARLOS A [employer] [facility] (MEDICARE REPLACEMENT HMO) [id number] Gely Busby [id number] Gely Busby Notes Date Note Type Note Provider Name and Address Organization Details Recorded Time 01/11/2017 text/html She is here for annual exam. She has been in [place] and developed a rash in her groin, it has not gone away. Leticia Mcguire MD [address], [place], [address], [place] [facility], 01/11/2017 12:52:54 01/13/2018 text/html She is here for annual exam, is doing well. She usually [facility] in [place], [place], but they didn't this year, they [...] MD [address], [place], [address], [place] - [facility], 01/13/2018 12:16:58 04/22/2018 text/html She is here for repeat pap and also for a complaint of skin monilia. Her prior pap showed ASCUS without HR HPV. Leticia Mcguire MD [address], [place], [address], [place] - [facility], 04/22/2018 14:05:58 01/14/2019 text/html She is here for annual exam, her rheumatoid arthritis flares on and off in the first three fingers of her right hand, she notes. note from 2018: She is here for annual exam, is doing well. She usually [facility] in [place], [place], but they didn't this year, they rented it out. She has a personal history of breast cancer. She is seeing Dr. Marie for her rheumatoid arthritis. She has a health care proxy. Leticia Mcguire MD [address], [place], [address], [place] - [facility], 01/14/2019 11:25:18 04/22/2020 text/html She is here [...] is doing well. She usually [facility] in [place], [place], but they didn't this year, they rented it out. She has a personal history of breast cancer. She is seeing Dr. Marie for her rheumatoid arthritis. She has a health care proxy. Leticia Mcguire MD [address] [facility],[address], [place], [address], [place] [facility], 04/22/2020 14:25:24 OBGyn Episode No OBEpisode recorded.
--- OUTSIDE RECORDS SUMMARY | 2025-05-26 15:33 | XMS_ITS | Encounter Summary ---
Author Organization [facility] Address [address] [place] [address] Care Team Providers Care Design Drafter Chief Name Role Phone Ruba Quezada MD Primary Care Prov ider Encounter Details Date Type Department Care Team (Late st Contact Info) Description 05/25/2025 Telephone Urogynecology - [address] [place] [address] Belle Manley RN Social History Tobacco Use [...] on file documented as of this encounter Ordered Prescriptions Prescription Sig Dispense Quantity Refills Last Filled Start Date End Date cephalexin (KEFLEX) 250 mg capsule Take 1 capsule (250 mg total) by mouth 1 (one) time each day. 90 each 05/25/2025 documented in this encounter Progress Notes * Shanda Packer - 05/26/2025 10:23 AM EST Pt is asking for a call back regarding the conversation from yesterday. She's unsure which medication is being changed and why. * Belle Manley RN - 05/25/2025 12:37 PM EST Called pt Notified pt that Dr. Cleaning is switching her prophylaxis trimpex to keflex 250 mg QHS Pt aware and agrees with plan Rx sent electronically to pharmacy Belle Manley RN * Belle Manley RN - 05/25/2025 12:37 PM EST ----- Message from Nai Cleaning MD sent at 05/24/2025 4:41 PM EST ----- Regarding: When you get a chance... Can you switch her prophylaxis from Trimpex to Keflex 250mg QHS? Given her last urine cultures wereresistant to Bactrim, I don't want to take my chances... Thank you! Mary Carmen documented in this encounter Plan of Treatment Upcoming Encounters Date Type Department Care Team (Late st Contact Info) Description 06/08/2025 1:30 PM EST Procedure visit Urogynecology - [address] [phone] Mary Carmen Cleaning MD 580 [facility] 205 [place] [address] 07/28/2025 11:45 AM EST Office Visit Adult Medicine - [place] [address] [place] [address] Becka Leach PA [address] [place], [place] 09/08/2025 3:30 PM EST Consult Nephrology - [address] [phone] Max Barrow MD 100 [facility] 200 [place] [address] documented as of this encounter Visit Diagnoses Not on filedocumented in this encounter Discontinued Medications Medication Sig Discontinue Reason Start Date End Da te trimethoprim (TRIMPEX) 100 mg tablet Take 1 tablet (100 mg total) by mouth at bedtime. Alternate therapy 01/30/2025 05/25/2025 documented as of this encounter Care Teams Design Drafter Chief Relationship Specialty Start Date End Date Ruba Quezada MD [address] [place] [id number] PCP - General Internal Medicine 06/21/24 documented as of this encounter
--- OUTSIDE RECORDS SUMMARY | 2025-05-26 15:33 | XMS_ITS | Encounter Summary ---
[facility] Address [address] [place] [address] Care Team Providers Care Inhalation Therapist Name Role Phone Ruba Quezada MD Primary Care Prov ider Encounter Details Date Type Department Care Team (Late st Contact Info) Description 05/17/2025 Results Follow-Up Urogynecology [address] [phone] Mary Carmen Cleaning MD 580 [facility] 205 [place] [address] Social History Tobacco Use Types Packs/Day Years [...] 1 capsule (250 mg total) by mouth 4 (four) times a day for 5 days. 20 each 05/19/2025 documented in this encounter Progress Notes * Belle Manley RN - 05/21/2025 2:13 PM EST Spoke with pt States she received message regarding her UTI and has picked up the Keflex She is aware to hold the trimpex while taking the keflex Appreciative of follow up call Belle Manley RN * Belle Manley RN - 05/19/2025 10:42 AM EST Called pt to convey (+) UTI NA, LM for pt to call back Recently treated with Macrobid for UTI on 04/28/25 Treatment: Keflex 250 mg QID x 5 days Asked pt to call office back to confirm she received message Please confirm with pt that she is aware to hold her trimpex while taking the keflex for the next 5days Status: Final result Dx: Recurrent UTI Test Result Released: No (inaccessible in [facility]) Specimen Information: Straight Catheter; Urine 1 Result Note View Follow-Up Encounter Urine Culture >=100,000 CFU/mL Escherichia coli Abnormal Resulting Agency: [facility] Susceptibility Escherichia coli SAUL $$ Amikacin Susceptible $ Amoxicillin/Clavulanate Intermediate $$$ Ampicillin/Sulbactam Resistant Cefazolin (Urine) Susceptible $$ Cefepime Susceptible $$ Cefoxitin Susceptible $$ Ceftazidime Susceptible $$ Ceftriaxone Susceptible $ Ciprofloxacin Susceptible $ Gentamicin Susceptible $$$ Levofloxacin Susceptible $$$ Meropenem Susceptible $ Nitrofurantoin Susceptible $$ Piperacillin/Tazobactam Susceptible $ Trimethoprim/Sulfamethoxazole Resistant Belle Manley RN documented in this encounter Plan of Treatment Upcoming Encounters Date Type Department Care Team (Late st Contact Info) Description 06/08/2025 1:30 PM EST Procedure visit Urogynecology - [address] [phone] Mary Carmen Cleaning MD [address] [place] [address] [address] [place] [address] 07/28/2025 11:45 AM EST Office Visit Adult Medicine - [address] [phone] Becka Leach PA [address] [place] [address] 09/08/2025 3:30 PM EST Consult Nephrology [address] [phone] Max Barrow MD 100 [facility] 200 [place] [address] documented as of this encounter Visit Diagnoses Not on filedocumented in this encounter Care Teams Inhalation Therapist Relationship Specialty Start Date End Date Ruba Quezada MD [address] [place] [address] PCP - General Internal Medicine 06/21/24 documented as of this encounter
--- OUTSIDE RECORDS SUMMARY | 2025-05-26 15:33 | XMS_ITS | Encounter Summary ---
Author Organization [facility] [place] [address] Care Team Providers Care Structural Ironworker Name Role Phone Ruba Quezada MD Primary Care Prov ider Encounter Details Date Type Department Care Team (Late Contact Info) Description 05/11/2025 Results Follow-Up Urogynecology - [address] [phone] Mary Carmen Cleaning MD [address] [place] [address] Social History Tobacco Use Types Packs/Day Years [...] as of this encounter Plan of Treatment Upcoming Encounters Date Type Department Care Team (Late Contact Info) Description 06/08/2025 1:30 PM EST Procedure visit Urogynecology - [address] [phone] Mary Carmen Cleaning [facility] 205 [place] [address] 07/28/2025 11:45 AM EST Office Visit Adult Medicine - [place] [address] [place] [address] Becka Leach PA [address] [place] [address] 09/08/2025 3:30 PM EST Consult Nephrology - [address] [phone] Max Barrow MD 100 [facility] 200 [place] [address] documented as of this encounter Visit Diagnoses Not on filedocumented in this encounter Care Teams Structural Ironworker Relationship Specialty Start Date End Date Ruba Quezada MD [address] [place] [address] PCP - General Internal Medicine 06/21/24 documented as of this encounter
--- OUTSIDE RECORDS SUMMARY | 2025-05-26 15:33 | XMS_ITS | Clinical Summary ---
Author Organization [facility] Address [address] [place] [address] Care Team Providers Care Produce Manager Name Role Phone Christine Gan MD Primary [...] 75+ series) 2017 COVID-19 Vaccine ( season) 2025 08/28/2020, 08/07/2020 Influenza Vaccine (#1) 2025 , [...] age to complete this topic Care Teams Produce Manager Relationship Specialty Start Date End Date Christine Gan MD PCP - General Internal Medicine 06/22/20
--- OUTSIDE RECORDS SUMMARY | 2025-05-26 15:33 | XMS_ITS | Clinical Summary ---
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 01/28/20 18 Active cholecalciferol (VITAMIN D-3) 25 mcg (1,000 unit) capsule Take by mouth 1 (one) time each day. Active aspirin 81 mg EC tablet Take by mouth. 11/27/19 08 Active calcium carbonate 1,500 mg (600 mg elemental calcium) tablet Take 1 tablet (1,500 mg total) by mouth 1 (one) time each day. Active estradioL (ESTRACE) 0.01 % (0.1 mg/gram) vaginal cream Insert 0.5 g into the vagina 1 (one) time each day. Please place 0.5g (a pea-sized amount) on your finger and place inside the vagina for 2 weeks at night, and then twice a week at night 42.5 g 3 12/29/19 25 Active hydroxychloroqu ine (PLAQUENIL) 200 mg tablet Take 2 tablets (400 mg total) by mouth 1 (one) time each day in the evening. Active levothyroxine (SYNTHROID, LEVOTHROID) 25 mcg tablet TAKE 1 TABLET BY MOUTH EVERY DAY 90 tablet 04/29/20 25 Active hydrOXYzine HCL (ATARAX) 10 mg tablet Take 1 tablet (10 mg total) by mouth 3 (three) times a day if needed for itching (can make tired). 90 tablet 1 04/27/20 25 025 Active lisinopriL (PRINIVIL,ZESTR IL) 20 mg tablet Take 1 tablet (20 mg total) by mouth 1 (one) time each day. 90 tablet 04/29/20 25 Active metoprolol succinate (TOPROL-XL) 25 mg 24 hr tablet Take 1 tablet (25 mg total) by mouth 1 (one) time each day. 90 each 04/29/20 25 Active zolpidem (AMBIEN) 10 mg tabletIndicatio ns:Insomnia, unspecified type TAKE 1 TABLET BY MOUTH EVERY DAY AT BEDTIME NEEDED FOR SLEEP 28 tablet 2 05/12/20 25 Active rosuvastatin (CRESTOR) 10 mg tablet TAKE 1 TABLET BY MOUTH 1 TIME EACH DAY. 90 tablet 1 05/12/20 25 Active omeprazole (PriLOSEC) [address] capsule TAKE 1 CAPSULE BY MOUTH TWICE A DAY 90 capsule 1 05/14/20 25 Active cephalexin (KEFLEX) 250 mg capsule Take 1 capsule (250 mg total) by mouth 1 (one) time each day. 90 each 05/25/20 25 026 Active lisinopriL (PRINIVIL,ZESTR IL) 20 mg tablet TAKE 1 TABLET BY MOUTH EVERY DAY 90 tablet 1 10/28/19 25 025 Discontinued(Re order) levothyroxine (SYNTHROID, LEVOTHROID) 25 mcg tablet TAKE 1 TABLET BY MOUTH EVERY DAY 90 tablet 1 10/28/19 25 025 Discontinued metoprolol succinate (TOPROL-XL) 25 mg 24 hr tablet Take 1 tablet (25 mg total) by mouth 1 (one) time each day. 90 each 1 11/25/19 25 025 Discontinued(Re order) rosuvastatin (CRESTOR) 10 mg tablet TAKE 1 TABLET BY MOUTH EVERY DAY 90 tablet 12/25/19 25 025 Discontinued(Re order) trimethoprim (TRIMPEX) 100 mg tablet Take 1 tablet (100 mg total) by mouth at bedtime. 01/31/20 25 025 Discontinued(Al ternate therapy) zolpidem (AMBIEN) 10 mg tabletIndicatio ns:Insomnia, unspecified type TAKE 1 TABLET BY MOUTH AT BEDTIME NEEDED FOR SLEEP 28 tablet 2 02/18/20 25 025 Discontinued omeprazole (PriLOSEC) [address] capsule Take 1 capsule (20 mg total) by mouth 2 (two) times a day. 90 capsule 1 02/18/20 25 025 Discontinued rosuvastatin (CRESTOR) 10 mg tablet Take 1 tablet (10 mg total) by mouth 1 (one) time each day. 90 tablet 04/29/20 25 025 Discontinued nitrofurantoin, macrocrystal-mo nohydrate, (MACROBID) 100 mg capsule Take 1 capsule (100 mg total) by mouth 2 (two) times a day for 5 days. 10 each 04/29/20 25 025 cephalexin (KEFLEX) 250 mg capsule Take 1 capsule (250 mg total) by mouth 4 (four) times a day for 5 days. 20 each 05/19/20 25 025 Active Problems Problem Noted Date Diagnosed Date Hyponatremia 01/26/2025 Generalized weakness 01/26/2025 Acute cystitis without hematuria 01/22/2025 UTI (urinary tract infection) 11/17/2024 Osteopenia 06/23/2024 Rheumatoid arthritis ([facility]/HCC V24, [facility]/HCC V28) 06/23/2024 B12 deficiency 06/23/2024 Basal cell carcinoma (BCC) in situ of skin 06/23 Recurrent UTI 07/18/2023 Urinary retention 07/18/2023 COVID-19 virus infection 04/24/2023 Overview (09/24/2023): Coinfection with influenza A 04/24/2023 Ascending aorta dilatation ([facility] V24) 020 Overview (09/24/2023): 06/03 mild, 3.6 cm Osteoarthritis of lumbar spine 11/19/2019 Overview (09/24/2023): Underwent L3-4 and L4-5 decompressive surgery for spinal stenosis symptoms, July 2020 at [facility] CKD (chronic kidney disease) stage 3, GFR 30-59 ml/min ([facility] V24, [facility] V28) 07/09/2019 Coronary artery disease invo lving chinik coronary artery of chinik heart without angina pectoris 11/17/2018 Thoracic compression fracture ([facility] V24, [facility]/ [facility] V28) 02/28/2016 Microalbuminuria 12/08/2015 Reflux esophagitis 11/16/2014 [...] 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 ([facility] V24, [facility] V28) 12/23/2006 Overview (09/24/2023): 12/19 borderline pos [...] EF 60% Malignant neoplasm of female breast ([facility] V24, [facility] V28) 09/15/2005 Overview (09/24/2023): Mastectomy left 1981, reconstruction 1984, IMO update Mastectomy left 1981, reconstruction 1984, IMO update Localized osteoarthrosis, lower leg 06/28/2005 Overview (09/24/2023): IMO update IMO update Hypertension 06/06/2005 Hypothyroidism 06/06/2005 Hypercholesterolemia 08/17/2004 Hematuria 12/18/2001 Overview (09/24/2023): Chronic mild hematuria x yrs, eval neg--also microalbuminuria 12/19--lisinopril. Previous cystoscopy. Neg ultrasound 02/19 Chronic mild hematuria x yrs, eval neg--also microalbuminuria 12/19--lisinopril. Previous cystoscopy. Neg ultrasound 02/19 Esophageal reflux 10/03/2000 Resolved Problems Problem Noted Date Diagnosed Date Resolved Date Diarrhea 01/26/2025 01/26/2025 Encounters Date Type Department Care Team Description 05/25/2025 Telephone Urogynecology - [address] [place] [address] Belle Manley RN 05/17/2025 1:30 PM EST Office Visit Urogynecology - [address] [phone] Mary Carmen Cleaning MD Acute UTI (Primary Dx); Recurrent UTI; Urinary urgency; Urge incontinence; Urinary frequency; Nocturia 05/17/2025 Results Follow-Up Urogynecology - [address] [phone] Mary Carmen Cleaning MD 05/14/2025 9:20 AM EDT Lab Draw Station - [address] [phone] Drug therapy; Chronic rheumatic arthritis (CMS/HCC V24, CMS/HCC V28) 05/11/2025 Results Follow-Up Urogynecology - [address] [phone] Mary Carmen Cleaning MD 05/10/2025 12:41 PM EDT - 05/10/2025 11:59 PM EDT Hospital Encounter Radiology Department - [address] [phone] Recurrent UTI Discharge Disposition: Home or Self Care 04/28/2025 Results Follow-Up Urogynecology - [address] [place] [phone] Belle Manley RN 04/27/2025 10:30 AM EDT Office Visit [address] [phone] Becka Leach PA Stage 3 chronic kidney disease, unspecified whether stage 3a or 3b CKD ([facility] V24, [facility] V28) (Primary Dx); Hyponatremia; Hypothyroidism, unspecified type; Primary hypertension; Hypercholesterolemia ; Type II diabetes mellitus with nephropathy ([facility] V24, [facility] V28); Insomnia, unspecified type; Basal cell carcinoma (BCC) in situ of skin; Rheumatoid arthritis, involving unspecified site, unspecified whether rheumatoid factor present ([facility] V24, [facility] V28); B12 deficiency; Osteopenia, unspecified location; Microalbuminuria; Coronary artery disease involving chinik coronary artery of chinik heart without angina pectoris; Gastroesophageal reflux disease, unspecified whether esophagitis present; Recurrent UTI; Itching 04/15/2025 9:30 AM EDT Office Visit Urogynecology [address] [phone] Sary Adams NP Hematuria, unspecified type (Primary Dx) 04/15/2025 Results Follow-Up Urogynecology - [address] [place] [phone] Belle Manley RN 04/14/2025 Results Follow-Up Urogynecology - [address] [place] [phone] Belle Manley RN 04/12/2025 Telephone Urogynecology [address] [phone] Mary Carmen Cleaning MD 04/08/[address] [phone] Ruba Munroe MD 03/25/2025 Telephone Internal Medicine - [address] [phone] Katey PerlaHELEN 03/23/[address] [phone] Ruba Munroe MD 02/26/[address] [phone] Julia Borrero CO 02/26/[address] [phone] Adair Ruymeka CO 02/25/2025 1:40 PM EDT Lab Draw Station [address] Hypothyroidism, unspecified type; Hypercholesterolemia ; Hyponatremia 02/25/2025 1:00 PM EDT Office Visit [address] [phone] Becka Leach PA Hyponatremia (Primary Dx); Stage 3 chronic kidney disease, unspecified whether stage 3a or 3b CKD ([facility] V24, [facility] V28); Hypothyroidism, unspecified type; Hypercholesterolemia ; Primary hypertension; Type II diabetes mellitus with nephropathy ([facility] V24, [facility] V28); Insomnia, unspecified type; Basal cell carcinoma (BCC) in situ of skin; B12 deficiency; Rheumatoid arthritis, involving unspecified site, unspecified whether rheumatoid factor present ([facility] V24, [facility] V28); Osteopenia, unspecified location; Gastroesophageal reflux disease, unspecified whether esophagitis present; Microalbuminuria; Coronary artery disease involving chinik coronary artery of chinik heart without angina pectoris; Rheumatoid arthritis involving shoulder with positive rheumatoid factor, unspecified laterality ([facility] V24, [facility] V28); Hypertension, unspecified type; Recurrent UTI from Last 3 Months Immunizations Immunization Administration Dates Next Due Tdap Tetanus diptheria acell ular pertussis (Boostrix; Adacel) 7yo and older 02/25/2025 Surgical History Surgery Date Site/Laterality Comments MASTECTOMY [...] REMOVAL; COMMENT: left, right ESOPHAGOGASTRODUODENOSCOPY 11/16/2014 PROCEDURE: MO ESOPHAGOGASTRODUODENOSCOPY TRANSORAL DIAGNOSTIC; COMMENT: approx grade C [...] CMS/HCC V24) 06/20/2020 DX:Ascending aorta dilatatio n ([facility]); COMMENT: 06/03 mild, 3.6 cm Family History [...] 07/15/1980 Smokeless Tobacco: Never Tobacco Cessation:Counseling Given: Not Answered Alcohol Use Standard Drinks/Week Comments Yes 0 [...] Sign Reading Time Taken Comments Blood Pressure 149/74 05/17/2025 1:29 PM EST Pulse 93 05/17/2025 1:29 PM EST Temperature 36.3 C (97.3 F) 04/27/2025 10:26 AM EDT Respiratory Rate 17 01/26/2025 7:52 AM EDT Oxygen Saturation 99% 04/27/2025 10:26 AM EDT Inhaled Oxygen Concentration - - Weight 64.1 kg (141 lb 6.4 oz) 04/27/2025 10:26 AM EDT Height 162.6 cm (5' 4 ) 04/27/2025 10:26 AM EDT Body Mass Index 24.27 04/27/2025 10:26 AM EDT Plan of Treatment Upcoming Encounters Date Type Department Care Team (Late st Contact Info) Description 06/08/2025 1:30 PM EST Procedure visit Urogynecology - [place] [address] [place] [phone] Mary Carmen Cleaning MD [address] [facility] [address] [place] [address] 07/28/2025 11:45 AM EST Office Visit Adult Medicine - [place] [address] [place] [phone] Becka Lecah PA [address] [place] [address] 09/08/2025 3:30 PM EST Consult Nephrology - [place] [address] [place], [place] [phone] Max Barrow MD [address] [facility] [address] [place] [address] Health Maintenance Due Date Last Done Comments Diabetes: Annual Foot Exam 02/09/1950 IPV Vaccines (2 of 3 - Adult catch-up series) 09/11/2004 08/14/2004 RSV Immunization Adult Patients (1 - 1-dose 75+ series) 2017 Zoster Vaccines (2 of 2) 06/09/2020 020, 11/07/2010, 07/15/2010 Colorectal Cancer Screening: Stool Based Tests (FOBT/FIT) 06/17/2022 Medicare Annual Wellness Visit 06/17/2022 Osteoporosis Screening (Bone Density Screening) 06/17/2022 Social Influencers of Health Screening 06/17/2022 Depression Screening 07/15/2024 COVID-19 Vaccine ( season) 2025 04/28/2021, 08/28/2020, 08/07/2020 Influenza Vaccine (#1) 2025 , 05/07/2023, 05/16/2022, Additional history exists Diabetes: Annual Urine Albumin-Creatinine Ratio (uACR) 07/21/2025 07/21/2024 Diabetes: Blood Sugar Control Test (HGBA1C) 08/01/2025 01/29/2025, 09/21/2024, 06/25/2024, Additional history exists Falls Risk Assessment 01/26/2026 01/26/2025 Diabetes: Annual Retina Eye Exam 03/23/2026 03/23/2025 Diabetes: Annual GFR (Glomerular Filtration Rate) 05/14/2026 05/14/2025, 02/25/2025, 01/29/2025, Additional history exists Hypertension/CHF/CAD Annual BMP Blood Test 05/14/2026 05/14/2025, 02/25/2025, 01/29/2025, Additional history exists Cholesterol Screening (Lipid Panel) 05/14/2030 05/14/2025, 02/25/2025, 06/25/2024, Additional history exists DTaP,Tdap,and Td Vaccines (3 - Td or Tdap) 02/25/2035 02/25/2025, 05/25/2015 Hepatitis A Vaccines Aged Out 08/14/2004 No long er eligible based on patient's age to complete this topic Pneumococcal Vaccine: 50+ Years Completed 04/14/2018, 01/14/2015, 02/15/2014, Additional history exists HIB Vaccines Aged Out [...] Associated Diagnosis Comments URINALYSIS MICROSCOPIC ONLY Routine 05/17/2025 1:48 PM EST Recurrent UTI URINALYSIS MICROSCOPIC ONLY Routine 05/17/2025 1:48 PM EST Recurrent UTI CULTURE URINE Routine 05/17/2025 1:48 PM EST Recurrent UTI POC URINE AUTO W/O MICRO Routine 025 1:47 PM EST Recurrent UTI LIPID PANEL WITH REFLEX TO DIRECT LDL Routine 05/14/2025 9:17 AM EDT Drug therapy Chronic rheumatic arthritis ([facility] V24, [facility] V28) SEDIMENTATION RATE Routine 05/14/2025 9: 17 AM EDT Drug therapy Chronic rheumatic arthritis ([facility] V24, [facility] V28) CREATININE, SERUM Routine 05/14/2025 9:1 7 AM EDT Drug therapy Chronic rheumatic arthritis ([facility] V24, [facility] V28) COMPLETE BLOOD COUNT Routine 05/14/2025 9:17 AM EDT Drug therapy Chronic rheumatic arthritis ([facility] V24, [facility] V28) C-REACTIVE PROTEIN Routine 05/14/2025 9: 17 AM EDT Drug therapy Chronic rheumatic arthritis ([facility] V24, [facility] V28) ASPARTATE AMINOTRANSFERASE Routine 05/14/2025 9:17 AM EDT Drug therapy Chronic rheumatic arthritis ([facility] V24, [facility] V28) ALANINE AMINOTRANSFERASE Routine 025 9:17 AM EDT Drug therapy Chronic rheumatic arthritis ([facility] V24, [facility] V28) US RETROPERITONEAL COMPLETE Routine 05/10/2025 1:10 PM EDT Recurrent UTI CULTURE URINE Routine 04/27/2025 11:14 AM EDT Urinary tract infection without hematuria, site unspecified CULTURE URINE Routine 04/15/2025 9:52 AM EDT Hematuria, unspecified type POC URINE AUTO W/O MICRO Routine 025 9:50 AM EDT Hematuria, unspecified type CULTURE URINE Routine 04/14/2025 1:53 PM EDT Urinary tract infection without hematuria, site unspecified CULTURE URINE Routine 04/13/2025 11:56 AM EDT Urinary tract infection without hematuria, site unspecified EXTERNAL DIABETIC RETINA EYE EXAM 03/23/2025 BASIC METABOLIC PANEL Routine 02/25/2025 1:37 PM EDT Hyponatremia LIPID PANEL WITH REFLEX TO DIRECT LDL Routine 02/25/2025 1:37 PM EDT Hypercholesterolem ia THYROID STIMULATING HORMONE WITH REFLEX TO FREE T4 AND FREE T3 Routine 02/25/2025 1:37 PM EDT Hypothyroidism, unspecified type HEMOGLOBIN A1C Routine 01/29/2025 10:53 AM EDT Type II diabetes mellitus with nephropathy ([facility] V24, [facility] V28) MICROALBUMIN CREATININE URINE RATIO Routine 07/21/2024 1:29 PM EST Microalbuminuria from Last 3 Months or Most Recently Relevant to Health Maintenance Results * (ABNORMAL) Urinalysis microscopic only (05/17/2025 1:48 PM EST) RBC, Urine 13.1(H) 0 - 4 /HPF LAB URINALYSIS - AUTOMATED METHOD 05/17/2025 7:20 PM EST [facility] WBC, Urine 1,788.8(H ) 0 - 4 /HPF LAB URINALYSIS - AUTOMATED METHOD 05/17/2025 7:20 PM EST [facility] Squamous Epithelial, Urine 25 0 - 60 /LPF LAB URINALYSIS - AUTOMATED METHOD 05/17/2025 7:[address] [facility] Bacteria, Urine Many(A) Negative /HPF LAB URINALYSIS - AUTOMATED METHOD 05/17/2025 7:[address] [facility] Hyaline Casts, Urine 2.5 0 - 3 /LPF LAB URINALYSIS - AUTOMATED METHOD 05/17/2025 7:[address] [facility] Urine Urinary bladder structure / Unknown Non-blood Collection / Unknown 05/17/2025 1:48 PM EST 05/17/2025 1:48 PM EST us Mary Carmen Cleaning MD LAB URINE ORDERABLES Final Resul t [facility] [address] [place] [address], [place] [phone] * (ABNORMAL) Culture urine (05/17/2025 1:48 PM EST) Only the most recent of5 resultswithin the time period is included. Culture, Urine >=100,000 CFU/mL Escherichia coli(A) SAUL 05/19/2025 10:26 AM EST [facility] Urine Urinary bladder structure / Unknown Non-blood Collection / Unknown 05/17/2025 1:48 PM EST 05/17/2025 1:48 PM EST Narrative Organism Antibiotic Method Susceptibility Escherichia coli [...] <=0.12 ug/ml: Susceptible Escherichia coli Nitrofurantoin SAUL <=16 ug/ml: Susceptible Escherichia coli Trimethoprim/Sulfamethoxazole SAUL >=320 ug/ml: Resistant us Mary Carmen Cleaning MD LAB MICROBIOLOGY - GENERAL ORDER SHIRLENE Final Result [facility] ([facility]) [facility] [address] [place] [address], [place] [phone] * (ABNORMAL) POC Urine Auto W/O Micro (05/17/2025 1:47 PM EST) Only the most recent of2 resultswithin the time period is included. Glucose UA POC Negative Negative, Trace mg/dL Bilirubin UA POC Negative Negative Ketones UA POC Negative Negative Specific [place] UA POC 1.015 Blood UA POC Large(A) Negative PH UA POC 6.0 Protein UA POC 100(A) Negative mg/dL Urobilinogen UA POC 0.2 E.U./dL 0.2 E.U./dL, 1.0 E.U./dL, 8 , Unable to interpret due to interfering substances mg/dL Nitrite UA POC Negative Negative Leukocytes UA POC Positive(A) Negative Urine Urine specimen obtained by clean catch procedure / Unknown 05/17/2025 1:47 PM EST us Mary Carmen Cleaning MD POINT OF CARE TEST ENTER/EDIT OR DERABLES Final Result * Lipid panel with reflex to direct LDL (05/14/2025 9:17 AM EDT) Only the most recent of2 resultswithin the time period is included. Cholesterol 170 0 - 200 mg/dL LAB CHEMISTRY METHOD 05/14/2025 1:26 PM EDT [facility] Triglycerides 82 0 - 150 mg/dL LAB CHEMISTRY METHOD 05/14/2025 1:26 PM [facility] HDL 63 >=40 mg/dL LAB CHEMISTRY METHOD 05/14/2025 1:26 PM [facility] LDL Calculated 91 0 - 100 mg/dL LAB CHEMISTRY METHOD 05/14/2025 1:26 PM EDT [facility] Comment:Estimated LDL Calcul ated using equation: Total cholesterol - HDL cholesterol - (Triglycerides/5) VLDL Cholesterol Cruz 16.4 mg/dL LAB CHEMISTRY METHOD 05/14/2025 1:26 PM [facility] Non HDL Chol. (LDL+VLDL) 107 <145 mg/dL LAB CHEMISTRY METHOD 05/14/2025 1:26 PM [facility] Chol/HDL Ratio 2.7 0.0 - 4.4 LAB CHEMISTRY METHOD 05/14/2025 1:26 PM T [facility] Blood Venous blood specimen / Unknown Venipuncture / Unknown 05/14/2025 9:17 AM EDT 05/14/2025 9:17 AM EDT us Alexander Cristal Ortiz MD LAB BLOOD ORDERABLES Rosana l Result [facility] [address] [place] [address], * (ABNORMAL) Creatinine (05/14/2025 9:17 AM EDT) Creatinine 1.25(H) 0.50 - 1.10 mg/dL LAB CHEMISTRY METHOD 05/14/2025 1:26 PM T [facility] eGFR 43(L) >=60 mL/min/1. 73m2 LAB CHEMISTRY METHOD 05/14/2025 1:26 PM T [facility] Comment:Calculation based on the Chronic Kidney Disease Epidemiology Collaboration (CKD-EPI) equation refit without adjustment for race. Blood Venous blood specimen / Unknown Venipuncture / Unknown 05/14/2025 9:17 AM EDT 05/14/2025 9:17 AM EDT Alexander Ortiz MD LAB BLOOD ORDERABLES Rosana l Result [facility] [address] [place] [address], [place] [phone] * Sedimentation rate (05/14/2025 9:17 AM EDT) Sed Rate 16 0 - 30 mm/hr LAB HEMETOLOGY METHOD 05/14/2025 11:53 AM EDT [facility] Blood Venous blood specimen / Unknown Venipuncture / Unknown 05/14/2025 9:17 AM EDT 05/14/2025 9:17 AM EDT Alexander Ortiz MD LAB BLOOD ORDERABLES Rosana l Result Performing Organization Address City/[facility]/ZIP Co de Phone Number [facility] [address] [place] [address], [place] [phone] * (ABNORMAL) Complete blood count (05/14/2025 9:17 AM EDT) WBC 9.2 4.8 - 10.8 K/mcL LAB HEMETOLOGY METHOD 05/14/2025 11:46 AM EDT [facility] RBC 3.70(L) 3.80 - 4.80 M/mcL LAB HEMETOLOGY METHOD 05/14/2025 11:46 AM EDT [facility] Hemoglobin 8.7(L) 11.5 - 16.0 g/dL LAB HEMETOLOGY METHOD 05/14/2025 11:46 AM EDT [facility] Hematocrit 28.9(L) 35.0 - 47.0 % LAB HEMETOLOGY METHOD 05/14/2025 11:46 AM EDT [facility] MCV 77.7(L) 79.0 - 98.0 FL LAB HEMETOLOGY METHOD 05/14/2025 11:46 AM EDT [facility] MCH 23.4(L) 27.0 - 32.0 pcg LAB HEMETOLOGY METHOD 05/14/2025 11:46 AM EDT [facility] MCHC 30.1(L) 32.0 - 37.0 g/dL LAB HEMETOLOGY METHOD 05/14/2025 11:46 AM EDT [facility] RDW 17.7(H) 11.0 - 15.0 % LAB HEMETOLOGY METHOD 05/14/2025 11:46 AM EDT [facility] Platelets 488(H) 130 - 400 K/mcL LAB HEMETOLOGY METHOD 05/14/2025 11:46 AM EDT [facility] MPV 8.3 7.0 - 11.0 FL LAB HEMETOLOGY METHOD 05/14[facility]25 [facility] NR[facility] 0.0 <1.0 % LAB HEMETOLOGY METHOD 05/14/2025 11:46 AM [facility] NRBC Absolute 0.00 <0.10 K/mcL LAB HEMETOLOGY METHOD 05/14/2025 11:46 AM T [facility] Blood Venous blood specimen / Unknown Venipuncture / Unknown 05/14/2025 9:17 AM EDT 05/14/2025 9:17 AM EDT us Alexander Cristal Ortiz MD LAB BLOOD ORDERABLES Rosana l Result [facility] [address] [place] [address], * (ABNORMAL) C-reactive protein (05/14/2025 9:17 AM EDT) C-Reactive Protein 1.38(H) <=0.50 mg/dL LAB CHEMISTRY METHOD 05/14/2025 1:27 PM EDT [facility] Blood Venous blood specimen / Unknown Venipuncture / Unknown 05/14/2025 9:17 AM EDT 05/14/2025 9:17 AM EDT Alexander Ortiz MD LAB BLOOD ORDERABLES Rosana l Result [facility] [address] [place] [address], [place] [phone] * Alanine aminotransferase (05/14/2025 9:17 AM EDT) ALT (SGPT) 20 10 - 60 unit/L LAB CHEMISTRY METHOD 05/14/2025 1:26 PM EDT [facility] Blood Venous blood specimen / Unknown Venipuncture / Unknown 05/14/2025 9:17 AM EDT 05/14/2025 9:17 AM EDT Alexander Ortiz MD LAB BLOOD ORDERABLES Rosana l Result [facility] [address] [place] [address], [place] [phone] * Aspartate aminotransferase (05/14/2025 9:17 AM EDT) AST (SGOT) 13 10 - 42 unit/L LAB CHEMISTRY METHOD 05/14/2025 1:26 PM EDT [facility] Blood Venous blood specimen / Unknown Venipuncture / Unknown 05/14/2025 9:17 AM EDT 05/14/2025 9:17 AM EDT us Alexander Cristal Ortiz MD LAB BLOOD ORDERABLES Rosana karla Result [facility] [address] [place] [address], [place] [phone] * US Retroperitoneal Complete (05/10/2025 1:10 PM EDT) Anatomical Region Laterality Modality Body Ultrasound 05/10/2025 5:13 PM EDT Narrative 05/10/2025 5:15 PM EDT Retroperitoneal ultrasound. History recurrent UTIs. Comparison with previous retroperitoneal ultrasound from 11/14/2020. Both kidneys were visualized with somewhat lobulated contour. No focal lesions were identified. Right kidney measures 8.9 cc. Left kidney measures 8.8 cc. There is no nephrolithiasis masses or hydronephrosis. Bladder was not well distended with prevoid volume of 103 cc. Postvoid volume is 65 cc. Right ureteral jet was visualized. Left ureteral jet was not visualized. CONCLUSIONS: Unremarkable ultrasonographic appearance of the kidneys. Poor distention of the bladder. -------- FINAL REPORT -------- Dictated By: Natalia Dugan Dictated Date: 05/10/2025 17:13 ET Assigned Physician: Natalia Dugan Reviewed and Electronically Signed By: Natalia Dugan Signed Date: 05/10/2025 17:15 ET Workstation ID: [id number] Transcribed By: Self Edit Transcribed Date: 05/10/2025 17:13 ET Procedure Note Natalia Dugan MD - 05/10/2025 Retroperitoneal ultrasound. History recurrent UTIs. Comparison with previous retroperitoneal ultrasound from 11/14/2020. Both kidneys were visualized with somewhat lobulated contour. No focallesions were identified. Right kidney measures 8.9 cc. Left kidneymeasures 8.8 cc. There is no nephrolithiasis masses or hydronephrosis.Bladder was not well distended with prevoid volume of 103 cc. Postvoidvolume is 65 cc. Right ureteral jet was visualized. Left ureteral jet wasnot visualized. CONCLUSIONS: Unremarkable ultrasonographic appearance of the kidneys. Poor distentionof the bladder. -------- FINAL REPORT -------- Dictated By: Natalia Dugan Dictated Date: 05/10/2025 17:13 ET Assigned Physician: Natalia Dugan Reviewed and Electronically Signed By: Natalia Dugan Signed Date: 05/10/2025 17:15 ET Workstation ID: [id number] Transcribed By: Self Edit Transcribed Date: 05/10/2025 17:13 ET us Mary Carmen Cleaning MD IMG US PROCEDURES Final Result * External Diabetic Retina Eye Exam Report (03/23/2025) Anatomical Region Laterality Modality Ultrasound us Provider [facility] IMG US PROCEDURES Final Result * Thyroid stimulating hormone with reflex to free t4 and free t3 (02/25/2025 1:37 PM EDT) Pathologist [facility] TSH 1.55 0.40 - 4.00 mcIU/mL LAB CHEMISTRY METHOD 02/25/2025 7:06 PM EDT [facility] Blood Venous blood specimen / Unknown Venipuncture / Unknown 02/25/2025 1:37 PM EDT 02/25/2025 1:37 PM EDT us Becka PRESLEY LAB BLOOD ORDERABLES Final Result [facility] [address] [place] [address], * (ABNORMAL) Basic metabolic panel (02/25/2025 1:37 PM EDT) Pathologist [facility] Sodium 134 133 - 145 mmol/L LAB CHEMISTRY METHOD 02/25/2025 5:58 PM EDT [facility] Potassium 4.1 3.5 - 5.5 mmol/L LAB CHEMISTRY METHOD 02/25/2025 5:58 PM EDT [facility] Chloride 103 96 - 110 mmol/L LAB CHEMISTRY METHOD 02/25/2025 5:58 PM EDT [facility] CO2 21 21 - 32 mmol/L LAB CHEMISTRY METHOD 02/25/2025 5:58 PM EDT [facility] Anion Gap 10 3 - 11 LAB CHEMISTRY METHOD 02/25/2025 5:58 PM EDT [facility] Glucose 107(H) 70 - 100 mg/dL LAB CHEMISTRY METHOD 02/25/2025 5:58 PM EDT [facility] BUN 15 5 - 25 mg/dL LAB CHEMISTRY METHOD 02/25/2025 5:58 PM [facility] Creatinine 1.07 0.50 - 1.10 mg/dL LAB CHEMISTRY METHOD [facility] e[facility] 52(L) >=60 mL/min/1. 73m2 LAB CHEMISTRY METHOD 02/25/2025 5:58 PM EDT [facility] Comment:Calculation based on the Chronic Kidney Disease Epidemiology Collaboration (CKD-EPI) equation refit without adjustment for race. BUN/Creatinine Ratio 14.0 LAB CHEMISTRY METHOD 02/25/2025 5:58 PM [facility] Calcium 8.8 8.5 - 10.5 mg/dL LAB CHEMISTRY METHOD 02/25/2025 5:58 PM [facility] Blood Venous blood specimen / Unknown Venipuncture / Unknown 02/25/2025 1:37 PM EDT 02/25/2025 1:37 PM EDT us Becka PRSELEY LAB BLOOD ORDERABLES Final Result [facility] [address] [place] [address], * Hemoglobin A1c (01/29/2025 10:53 AM EDT) Hemoglobin A1C 5.7 <6.5 % LAB CHEMISTRY METHOD 01/29/2025 10:56 PM EDT [facility] Mean Bld Glu Estim. 117 mg/dL LAB CHEMISTRY METHOD 01/29/2025 10:56 PM EDT [facility] Blood Venous blood specimen / Unknown Venipuncture / Unknown 01/29/2025 10:53 AM EDT 01/29/2025 10:53 AM EDT Contreras PRESLEY LAB BLOOD ORDERABLES Final Res ult [facility] [address] [place] [address], [place] [phone] * (ABNORMAL) Microalbumin creatinine urine ratio (07/21/2024 1:29 PM EST) Creatinine, Urine 76.0 mg/dL LAB CHEMISTRY METHOD 07/21/2024 5:15 PM EST [facility] Microalb, Ur 136.0(H) 0.0 - 29.0 mg/L LAB CHEMISTRY METHOD 07/21/2024 5:15 PM EST [facility] Microalb/Crea t Ratio 179(H) <30 mg/g creat LAB CHEMISTRY METHOD 07/21/2024 5:15 PM EST [facility] Urine Urine specimen from urethra / Unknown Non-blood Collection / Unknown 07/21/2024 1:29 PM EST 07/21/2024 1:29 PM EST Becka PRESLEY LAB URINE ORDERABLES Final Result [facility] [address] [place] [address], [place] [phone] from Last 3 Months or Most Recently Relevant to Health Maintenance [place] [id number] [employer] Advance Directives Documents on File Type Date 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 Do not modify or discontinue any currently active code status orders. * Full Code - Default Date Activated Date Inactivated Comments 01/22/2025 8:29 PM 01/22/2025 10:19 PM This is ord er is used when code status has not been discussed with the patient, or code status is otherwise unknown/unconfirmed To update the patient's code status, place a code status order. Do not modify or discontinue any currently active code status orders. * Full Code - Default Date Activated Date Inactivated Comments 11/17/2024 2:32 AM 11/18/2024 3:25 PM This is order is used when code status has not been discussed with the patient, or code status is otherwise unknown/unconfirmed To update the patient's code status, place a code status order. Do not modify or discontinue any currently active code status orders. 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
--- OUTSIDE RECORDS SUMMARY | 2025-05-26 15:33 | XMS_ITS | Encounter Summary ---
Author Organization [facility] Address [address] [place] [address] Care Team Providers Care Director Life Sales Name Role Phone Pcp, No Primary Care Provider Unavailabl e Encounter Details Date Type Department Care Team ([facility] st Contact Info) Description 03/09/2020 Procedure Pass [facility], Radiology (CT Scan) [address] [place] [address] Social History Tobacco Use Types Packs/Day Years [...] on filedocumented in this encounter Care Teams Director Life Sales Relationship Specialty Start Date End Date Pcp, No [place] [address] PCP - General 03/08/20 documented as of this encounter
== END 2025-05-26 13:40 | disposition home or self-care (01) ==
LOC: HO.RHES 12:58
PROVIDERS: PCP Internal Medicine; Visit Provider Internal Medicine Rheumatology
DX: M06.9 Rheumatoid arthritis, unspecified (principal); M85.80 Other specified disorders of bone density and structure, unspecified site; Z78.0 Asymptomatic menopausal state
CPT/HCPCS: 99214; G2211